=== PATIENT | female | born 1955 | race Caucasian/White ===

== ENCOUNTER → 2020-02-17 13:55 | Outpatient (BNVA) | payer OTHER, MEDICAID, SELFPAY | PROVIDERS: PCP Internal Medicine; Referring Provider Internal Medicine; Visit Provider Internal Medicine Cardiovascular Disease | DX: Z76.89 Persons encountering health services in other specified circumstances (principal) ==

== ENCOUNTER → 2020-04-18 13:57 | Outpatient (BNVA) | payer OTHER, MEDICAID, SELFPAY | PROVIDERS: PCP Internal Medicine; Visit Provider Hospitalist | DX: Z76.89 Persons encountering health services in other specified circumstances (principal) ==

== ENCOUNTER → 2020-07-24 13:27 | Outpatient (BNVA) | payer OTHER, MEDICAID, SELFPAY | PROVIDERS: PCP Internal Medicine; Visit Provider Hospitalist ==

== ENCOUNTER 2020-07-28 10:21 | Outpatient (REF) | payer OTHER, MEDICAID, SELFPAY ==
[2020-07-28 11:18] LABS: MANUAL DIFF FLAG NO
[2020-07-28 11:30] LABS: Basophils Absolute Auto 0.1 X10*3/uL (0.0-0.2); Basophils Percent Auto 0.9 % (0-2); Eosinophils Absolute Auto 0.3 X10*3/uL (0.0-0.4); Eosinophils Percent Auto 3.9 % (0-4); Hematocrit 43.3 % (37-47); Hemoglobin 14.5 g/dl (12.0-16.0); Imm Gran Abs Auto 0.04 X10*3/uL (0.00-0.03); Imm Gran Pct Auto 0.5 % (0.0-0.4); Lymphocytes Absolute Auto 0.9 X10*3/uL (1.2-4.9); Lymphocytes Percent Auto 11.9 % (20-40); Mean Corpuscular HGB Conc 33.5 g/dl (31.0-35.0); Mean Corpuscular Hemoglobin 26.7 pg (27.0-33.0); Mean Corpuscular Volume 79.7 fL (80-98); Mean Platelet Volume 8.9 fL (9.4-12.3); Monocytes Absolute Auto 0.7 X10*3/uL (0.1-1.2); Monocytes Percent Auto 8.7 % (2-11); Neutrophils Absolute Auto 5.7 X10*3/uL (2.0-8.3); Neutrophils Percent Auto 74.1 % (45-73); Platelet Count 358 X10*3/uL (160-400); Red Blood Count 5.43 X10*6/uL (4.20-5.50); Red Cell Distribution Width 16.5 % (11.0-16.0); White Blood Count 7.7 X10*3/uL (4.8-10.8)
[2020-07-28 11:41] LABS: Anion Gap 18 (12-20); Blood Urea Nitrogen 27 mg/dL (9-16); Calcium 9.3 mg/dL (8.4-10.2); Carbon Dioxide 23 mmol/L (22-29); Chloride 104 mmol/L (96-108); Estimated Glomerular Filt Rate 38; Glucose Random 95 mg/dL (60-115); Potassium 2.9 mmol/L (3.3-5.1); Sodium 142 mmol/L (135-145)
[2020-07-28 11:44] LABS: B Type Natriuretic Peptide 71 pg/mL (<100)
[2020-07-28 12:08] LABS: Erythrocyte Sedimentation Rate 16 MM/HR (0-20)
== END 2020-07-28 10:22 | disposition home or self-care (01) ==
LOC: HO.HMGCLDS 10:21
PROVIDERS: PCP Internal Medicine; Visit Provider Hospitalist
DX: I27.20 Pulmonary hypertension, unspecified (principal); J44.9 Chronic obstructive pulmonary disease, unspecified
CPT/HCPCS: 36415; 80048; 83880; 85025; 85652

== ENCOUNTER 2020-08-02 15:26 | Outpatient (REF) | payer OTHER, MEDICAID, SELFPAY ==
[2020-08-02 16:53] LABS: Anion Gap 18 (12-20); Blood Urea Nitrogen 23 mg/dL (9-16); Calcium 9.8 mg/dL (8.4-10.2); Carbon Dioxide 24 mmol/L (22-29); Chloride 104 mmol/L (96-108); Estimated Glomerular Filt Rate 41; Glucose Random 75 mg/dL (60-115); Potassium 2.8 mmol/L (3.3-5.1); Sodium 143 mmol/L (135-145)
== END 2020-08-02 15:27 | disposition home or self-care (01) ==
LOC: HO.LAB 15:26
PROVIDERS: Visit Provider Hospitalist
DX: I50.812 Chronic right heart failure (principal)
CPT/HCPCS: 36415; 80048

== ENCOUNTER → 2020-09-20 09:41 | Outpatient (REF) | payer OTHER, MEDICAID, SELFPAY ==
--- NOTE | 2020-09-20 09:44 | CA_ITS ---
Transthoracic Echocardiogram Patient (Last, First, Middle): Sabina Jain A Gender: Female Date of : 1955 Age: 65 Procedure Date: 09/20/2020 Procedure Type: Transthoracic Echocardiogram Location: OP Height: 165.1 cm Weight: 77.11 kg BSA: 1.85 m2 Heart Rate: bpm BP: 124 / 80 mmHg Cancer Genetic Counselor: Referring MD: Bhavesh Adames MD Ux Visual Designer: Bhavesh Adames MD Symptoms: I27.20 - Pulmonary hypertension, unspecified Study Quality: Fair ECG Rhythm: Sinus Conclusions: - 1. Normal LV systolic function with impaired relaxation filling pattern 2. Enlarged RV with reduced RV systolic function 3. Moderate tricuspid regurgitation with severely elevated right ventricular systolic pressure 4. No gross pericardial effusion Findings Left Ventricle Normal left ventricular size, thickness, and systolic function. The visually estimated ejection fraction is between 55-60%. There is a flattened septum in systole consistent with right ventricular pressure overload. Spectral Doppler is indicative of an impaired relaxation filling pattern. E/E prime ratio is between 8 and 15 consistent with indeterminate filling pressures. Right Ventricle Mildly increased right ventricular cavity size. There is mildly decreased right ventricular systolic function. Atria The left atrium is normal in size. There is no evidence of interatrial shunt. The right atrium is mildly dilated. Aortic Valve Normal aortic valve structure and function. There is no aortic valve stenosis. There is no aortic valve regurgitation. Mitral Valve Normal mitral valve structure and function. There is trace mitral valve regurgitation. There is no mitral valve stenosis. Pulmonic Valve The pulmonic valve is likely normal. There is trace to mild pulmonic valve regurgitation. Tricuspid Valve Normal tricuspid valve structure. There is moderate tricuspid valve regurgitation. The right ventricular systolic pressure is 71 mmHg. Normal right atrial pressure. Severe pulmonary hypertension is present. Great Vessels All visible segments of the aorta are normal in size. The pulmonary artery was not well visualized. Venous The inferior vena cava is normal in size and collapses greater than 50% with inspiration. Pericardium/Pleural There is no evidence of pericardial effusion. Measurements 2D Linear Measurements IVSd: 0.85 0.6-0.9/0.6-1.0 cm LVIDd: 4.10 3.9-5.3/4.2-5.9 cm LVIDd Index: 2.22 2.4-3.2/2.2-3.1 cm/m2 LVIDs: 2.73 2.0-3.6 cm LVPWd: 0.85 0.7-1.1 cm Ao Root: 2.70 2.1-3.5 cm LA Diam: 3.20 2.7-3.8/3.0-4.0 cm LAIDs Index: 1.73 1.5-2.3 cm/m2 LV Mass: 130.92 67-162/88-224 g LV Mass Index: 70.77 43-95/49-115 g/m2 LVOT Diam: 2.10 3.0+(-)1.3 cm Mitral Valve MV Pk E: 0.70 MV PK A: 1.03 MV Decel Time: 135.00 E/A: 0.70 E'Lateral: 6.31 E'Medial: 4.35 E/E' Med: 16.20 E/E' Lat: 11.10 PHT: 39.00 MVA PHT: 5.64 Decel Glascock: 5.22 Aortic Valve AoV Pk Elgin: 1.63 AoV Mn [place]gin: 1.01 AoV VTI: 0.28 AoV Pk Grad: 11.00 Aov Mn Grad: 5.00 PETER Cont.VTI: 2.81 LVOT LVOT Pk [place]: 1.06 LVOT Mn [place]: 0.61 LVOT VTI: 0.23 LVOT Pk Grad: 4.00 LVOT Mn Grad: 2.00 LVOT Diam: 2.10 LVOT Area: 3.46 Diastolic Function MV Pk E: 0.70 MV Pk A: 1.03 E/A: 0.70 E'Medial: 4.35 E/E' Med: 16.20 E' Laterial: 6.31 E/E' Lat: 11.10 Tricuspid Valve TR Pk El[place]: 4.03 TR Pk Grad: 68.00 RA Press: 3.00 RVSP: 71.00 Great Vessels Aorta Ao Root-2D: 2.70 2.0-3.7 cm Ao Asc: 2.80 2.1-3.4 cm Ao Arch: 3.20 Pulmonary Valve PV Pk Elgin: 1.09 Peak PV Grad: 5.00 Updated in Other Vendor System with Status of Final Bhavesh Adames MD electronically signed on 09/20/2020 3:31:20 PM with status of Final
== END ==
LOC: HO.CARD 09:41
PROVIDERS: Visit Provider Internal Medicine Cardiovascular Disease
DX: I27.0 Primary pulmonary hypertension (principal); I47.1 Supraventricular tachycardia; I50.810 Right heart failure, unspecified
CPT/HCPCS: 93306

== ENCOUNTER 2020-09-25 13:31 | Outpatient (REF) | payer OTHER, MEDICAID, SELFPAY ==
[2020-09-25 18:28] LABS: Anion Gap 18 (12-20); Blood Urea Nitrogen 25 mg/dL (9-16); Calcium 9.5 mg/dL (8.4-10.2); Carbon Dioxide 23 mmol/L (22-29); Chloride 103 mmol/L (96-108); Estimated Glomerular Filt Rate 42; Potassium 3.1 mmol/L (3.3-5.1); Sodium 141 mmol/L (135-145)
[2020-09-25 19:03] LABS: Digoxin 0.3 ng/mL (0.8-2.0)
== END 2020-09-25 13:32 | disposition home or self-care (01) ==
LOC: HO.LAB 13:31
PROVIDERS: PCP Internal Medicine; Referring Provider Internal Medicine Hypertension Specialist; Visit Provider Internal Medicine Cardiovascular Disease
DX: I47.1 Supraventricular tachycardia (principal); I48.20 Chronic atrial fibrillation, unspecified; N18.30 Chronic kidney disease, stage 3 unspecified; Z79.899 Other long term (current) drug therapy
CPT/HCPCS: 36415; 80051; 80162; 82310; 82565; 84520

== ENCOUNTER 2020-10-07 11:38 | Outpatient (REF) | payer OTHER, MEDICAID, SELFPAY ==
--- NOTE | ~2020-10-07 | XR_ITS ---
EXAMINATION: XR HAND, RIGHT CLINICAL INFORMATION: Pain. COMPARISON: None TECHNIQUE: PA, lateral, and oblique views of the right hand. FINDINGS: There is a loss of PIP and DIP joint space all digits. There is periarticular spurring joint ligament is irregularity DIP joint third digit. No visible acute fracture or dislocation seen. The MCP, CMCP joints appear normal. The soft tissues are normal. XR/XR hand RT min 3V IMPRESSION: Degenerative osteoarthritic changes PIP and DIP joints slightly worse in the DIP joint third digit. No visible acute fracture seen
== END 2020-10-07 11:39 | disposition home or self-care (01) ==
LOC: HO.HMGCX 11:38
PROVIDERS: PCP Internal Medicine; Visit Provider Internal Medicine
DX: M19.90 Unspecified osteoarthritis, unspecified site (principal)
CPT/HCPCS: 73130

== ENCOUNTER 2020-11-21 08:48 | Outpatient (REF) | payer OTHER, MEDICAID, SELFPAY ==
--- NOTE | ~2020-11-21 | CT_ITS ---
EXAMINATION: CT CHEST WITHOUT CONTRAST CLINICAL INFORMATION: Non-small cell lung cancer. COMPARISON: Portions of a previous CT 12/16/19. TECHNIQUE: Multidetector volumetric CT imaging of the chest was done. Axial MIP volume rendering provided. Sagittal and coronal reformatted images were obtained. This CT examination was performed using dose optimization techniques as appropriate, variously including the following: *Automated exposure control *Adjustment of mA and/or kV according to patient size (this includes techniques or standardized protocols for targeted exams where dose is matched to indication/reason for exam; i.e. extremities or head) *Use of iterative reconstruction technique DLP: 146 mGy-cm FINDINGS: TELEVISION INSTALLER: There is volume loss in the left hemithorax with irregular density extending from the left hilum toward the periphery of the left mid chest wall. There are multiple rib deformities. There is asymmetric left apical thickening. LUNGS: There is no abnormality of the trachea or mainstem bronchi. There is volume loss in the left lung. There is severe centrilobular emphysema. There is abnormal density extending from the left hilum to the pleural reflection laterally and inferiorly. There is metallic suture in the anterior lower remaining left lung. There is irregular pleural thickening. There is a juxtapleural mass-like abnormality posteromedial right lower lobe. This appears somewhat more solid. Measurements of the solid component as follows; 11/21/2020-1.4 x 1.4 cm 12/16/2019- 1.1 x 0.7 cm 04/28/2019-0.9 x 0.8 cm 05/20/2018-0.7 x 0.5 cm There is some traction bronchiectasis. MEDIASTINUM: There is mediastinal shift to the left. There is a lymph node in the anterior mediastinal fat 11/21/2020-0.8 cm 12/16/2019-0.8 cm 05/20/2018-0.8 cm No significant pericardial fluid. No definite abnormality of the esophagus. The left hilum is not well evaluated. PLEURA: There is pleural reaction and thickening. There is asymmetric left apical thickening. No significant pleural fluid. AXILLA: There are no enlarged axillary lymph nodes. There are extensive chest wall abnormalities on the left consistent with previous thoracotomy. There are calcifications in the subcutaneous tissues of the chest wall. UPPER ABDOMEN: Circumscribed fluid attenuating mass in the medial upper right kidney consistent with a cyst. This has increased in size when compared to 05/20/2018. This should be monitored at the time of next follow-up. There is cholelithiasis. No suspicious adrenal mass demonstrated. OSSEOUS STRUCTURES: Left chest wall deformities consistent with previous surgery. CT/CT chest wo con IMPRESSION: Severe underlying emphysema. Postoperative changes from left thoracotomy and pulmonary resection. Increasing solid component of a nodule in the right lower lobe posteriorly. This is concerning for new or metastatic malignancy. This may be amenable to CT-guided sampling.
== END 2020-11-21 08:49 | disposition home or self-care (01) ==
LOC: HO.CT 08:48
PROVIDERS: Visit Provider Internal Medicine Medical Oncology
DX: Z85.118 Personal history of other malignant neoplasm of bronchus and lung (principal)
CPT/HCPCS: 71250

== ENCOUNTER → 2020-12-26 13:00 | Outpatient (BNVA) | payer OTHER, MEDICAID, SELFPAY | PROVIDERS: PCP Internal Medicine; Visit Provider Hospitalist | DX: I27.20 Pulmonary hypertension, unspecified (principal); J44.9 Chronic obstructive pulmonary disease, unspecified ==

== ENCOUNTER 2021-01-02 11:02 | Day surgery (SDC) | payer OTHER, MEDICAID, SELFPAY ==
[2021-01-02] VITALS (8 sets, daily range): BP systolic 98–120; BP diastolic 58–83; PULSE 77–90; RESP 17; TEMP 36.1; O2SAT 97–99; BMI 27.1
--- NOTE | ~2021-01-02 | XR_ITS ---
EXAMINATION: XR CHEST CLINICAL INFORMATION: Post right lower lobe lung biopsy. COMPARISON: None TECHNIQUE: 2 views of the chest were obtained. FINDINGS: The right lung is expanded. There is moderate loss of left lung volume with postsurgical changes in left parahilar region.. There is left upper lobe dense scarring and/or atelectasis. Post biopsy there is no visible pneumothorax in the right lung or the left lung. Heart size and pulmonary vascularity is normal. No gross bony abnormality seen. XR/XR chest 2V IMPRESSION: Post right lower lobe lung biopsy there is no pneumothorax. There is chronic bandlike atelectasis scarring left upper lobe with loss of left lung volume and postsurgical changes in the left parahilar region.
--- NOTE | ~2021-01-02 | CT_ITS ---
PROCEDURE: CT GUIDED ASPIRATION, FINE NEEDLE, WITH IMAGE GUIDANCE CLINICAL INFORMATION: Lung mass. COMPARISON: None TECHNIQUE: Following explaining CT-guided right lung nodule biopsy procedure, benefits and risks written consent was obtained. Patient was placed in right lateral decubitus view and preliminary CT imaging was obtained. An optimal site was selected along the right posterior chest and marked. The marked site was cleaned and draped in usual sterile manner. 1% lidocaine was injected at puncture site. A 25-gauge long needle attached to a syringe was inserted under CT fluoroscopy guidance into the right lower lobe nodule and a 3 pass fine-needle biopsy aspiration was performed. Postprocedure repeat CT chest revealed no visible pneumothorax. Patient tolerated procedure extremely well. This CT examination was performed using dose optimization techniques as appropriate, variously including the following: *Automated exposure control *Adjustment of mA and/or kV according to patient size (this includes techniques or standardized protocols for targeted exams where dose is matched to indication/reason for exam; i.e. extremities or head) *Use of iterative reconstruction technique DLP: 353 mGy-cm FINDINGS: On preliminary CT imaging there is a 1.1 cm nodule subpleural location right lower lobe. There is underlying emphysema. CT fluoroscopy-guided right lower lobe pulmonary nodule aspiration biopsy was performed x3. Repeat CT imaging was performed post procedure and revealed no visible pneumothorax. A chest x-ray was to be obtained as well. Preliminary cytology results revealed adequate specimen. CT/CT guided FNA IMPRESSION: Successful CT fluoroscopy-guided right lower lobe nodule biopsy performed. No immediate complications.
[2021-01-02 11:34] LABS: MANUAL DIFF FLAG NO
[2021-01-02 11:39] LABS: Basophils Absolute Auto 0.1 X10*3/uL (0.0-0.2); Eosinophils Absolute Auto 0.2 X10*3/uL (0.0-0.4); Eosinophils Percent Auto 2.6 % (0-4); Hematocrit 44.5 % (37-47); Hemoglobin 15.3 g/dl (12.0-16.0); Imm Gran Abs Auto 0.02 X10*3/uL (0.00-0.03); Imm Gran Pct Auto 0.3 % (0.0-0.4); Lymphocytes Percent Auto 12.9 % (20-40); Mean Corpuscular HGB Conc 34.4 g/dl (31.0-35.0); Mean Corpuscular Hemoglobin 27.1 pg (27.0-33.0); Mean Corpuscular Volume 78.8 fL (80-98); Mean Platelet Volume 8.9 fL (9.4-12.3); Monocytes Absolute Auto 0.6 X10*3/uL (0.1-1.2); Monocytes Percent Auto 7.9 % (2-11); Neutrophils Percent Auto 75.3 % (45-73); Platelet Count 263 X10*3/uL (160-400); Red Blood Count 5.65 X10*6/uL (4.20-5.50); Red Cell Distribution Width 16.9 % (11.0-16.0)
[2021-01-02 11:49] LABS: Prothrombin Time 11.5 SEC (9.9-13.0)
[2021-01-02 11:51] LABS: Partial Thromboplastin Time 47.4 SEC (24.1-38.0)
[2021-01-02 12:06] LABS: Anion Gap 16 (12-20); Blood Urea Nitrogen 30 mg/dL (9-16); Carbon Dioxide 23 mmol/L (22-29); Chloride 106 mmol/L (96-108); Creatinine Clr Calc Pharmacy 39.2; Estimated Glomerular Filt Rate 36; Potassium 2.8 mmol/L (3.3-5.1); Sodium 142 mmol/L (135-145)
== END 2021-01-02 15:54 | disposition home or self-care (01) ==
PROVIDERS: Radiology Diagnostic Radiology; PCP Internal Medicine; Visit Provider Internal Medicine
DX: C34.31 Malignant neoplasm of lower lobe, right bronchus or lung (principal); J96.11 Chronic respiratory failure with hypoxia; J44.9 Chronic obstructive pulmonary disease, unspecified; I27.20 Pulmonary hypertension, unspecified; Z79.899 Other long term (current) drug therapy
CPT/HCPCS: 10009; 36415; 71046; 80051; 82565; 84520; 85025; 85610; 85730; 88172; 88173

== ENCOUNTER 2021-01-10 12:56 | Outpatient (REF) | payer OTHER, MEDICAID, SELFPAY ==
--- NOTE | 2021-01-10 13:00 | PFT_ITS ---
FLOWS: FEV1 57% of predicted at 1.46 L. FVC 74% of predicted at 2.47 L. FEV1 to FVC ratio of 0.59. No bronchodilator response. LUNG VOLUMES: Total lung capacity 99% of predicted at 5.16 L. Residual volume 136% predicted at 2.91 L. Slow vital capacity 73% predicted at 2.25 L. Expiratory reserve volume 100% of predicted at 0.83 L. Diffusion capacity is severely decreased. IMPRESSION: Moderate obstructive ventilatory defect with no bronchodilator response. Increased residual volume suggests air trapping. Decreased diffusion capacity suggests emphysema. Boris Harris MD AP/MODL / [id number]
== END 2021-01-10 12:57 | disposition home or self-care (01) ==
LOC: HO.RESP 12:56
PROVIDERS: PCP Internal Medicine; Visit Provider Hospitalist
DX: J44.9 Chronic obstructive pulmonary disease, unspecified (principal)
CPT/HCPCS: 94060; 94727; 94729

== ENCOUNTER 2021-01-16 08:13 | Outpatient (REF) | payer OTHER, MEDICAID, SELFPAY ==
--- NOTE | ~2021-01-16 | PE_ITS ---
EXAMINATION: Fluorine-18 FDG PET/CT Scan CLINICAL INDICATION: Subsequent treatment management. Recurrent right lower lobe non-small cell lung cancer, staging. Right lung biopsy 2 weeks ago. PROCEDURE: 68 minutes following the intravenous administration of 15.1 mCi of fluorine 18 FDG, images from the base of the skull to the mid thighs were obtained using a combined PET/CT scanner with CT scan based attenuation correction. No oral contrast was administered. No intravenous contrast was administered. Transverse, coronal, sagittal, and volume reconstruction projections were obtained. The patient's blood glucose as determined by a finger stick, was 93 mg/dl immediately prior to injection. Total CT exam dose-length product 387.33 mGy-cm * These CT images were obtained using dose optimization techniques as appropriate, variously including the following: Automated exposure control * Adjustment of mA and/or kV according to patient size (this includes techniques or standardized protocols for targeted exams where dose is matched to indication/reason for exam; i.e. extremities or head) * Use of iterative reconstruction technique COMPARISON: Multiple prior PET/CT scans are available for comparison. The most recent available PET CT scan is dated 01/28/2019 and the least recent is dated 11/28/2010. Multiple less recent PET CT scans prior to 11/28/2010 abdomen performed and the reports of these are available but the images of the less recent studies are not available for review. CT scan of the chest dated 11/21/2020 is available for comparison. FINDINGS: (Slice numbers described in this report are numbered superiorly to inferiorly with slice #1 in the head) NECK AND VISUALIZED HEAD: No foci of abnormal FDG activity are noted. The distribution of FDG activity is physiological. There is no cervical lymphadenopathy.. THORAX: There is weakly increased FDG activity in a posterior pleural-based right lower lobe pulmonary nodule, showing SUVmax 2.2, slice 91/267. The solid nodule at this site measures 1.3 x 1.0 cm in largest transverse dimensions and does not appear significantly changed from the 11/21/[address] scan. The patient has volume loss in the left lung from a partial left upper lobectomy. There is scarring or atelectasis abutting the interlobar fissure of the left lung at the base of the left upper lobe with a CT appearance similar to the recent diagnostic CT scan dated 11/21/2020 and the most recent PET CT scan dated 01/28/2019. This shows mildly increased FDG activity with SUVmax 4.2, slice 75/267. There is also some scarring with associated weak FDG activity at the left lung apex. No additional suspicious pulmonary nodules are present. There is pleural thickening and chest wall deformity in the left lower lobe consistent with prior lung surgery. There is no pleural or pericardial fluid, or pneumothorax. There is no mediastinal, supraclavicular, or axillary lymphadenopathy. Mildly increased FDG activity is present in the thyroid and this abuts likely physiological activity in the larynx which is predominantly right-sided. ABDOMEN AND PELVIS: There is a focus of moderately increased FDG activity in the rectosigmoid colon, SUVmax 8.5, slice 201/267. This was not present on the prior 01/28/2019 PET/CT scan. This focus is superimposed on mild diffuse FDG activity present throughout the gastrointestinal tract which is likely physiological. No additional foci of abnormal FDG activity are present in the abdomen or pelvis. The liver and spleen are unremarkable. There is a peripherally calcified calculus within the gallbladder but the latter is otherwise unremarkable. There is a hypodense cyst in the upper pole of the right kidney now measuring 3.1 cm in largest transverse dimension and this is significantly larger than on 01/28/2019. This is markedly FDG photopenic. The kidneys are otherwise unremarkable. The adrenal glands and pancreas are unremarkable. There is no retroperitoneal, mesenteric, pelvic or inguinal lymphadenopathy. MUSCULOSKELETAL: No foci of abnormal FDG activity are present in the osseous structures. There are diffuse degenerative changes in the spine but no suspicious sclerotic or lytic lesions are visualized. There are bilateral subcutaneous calcifications in the superior posterior thigh regions, unchanged from prior studies and with no associated abnormal FDG activity. A right total hip prosthesis is in place, unchanged from prior studies. VASCULAR: Vascular calcifications including coronary are noted. PET/PET CT fusion skull to thigh IMPRESSION: 1. Although mild in intensity, increased FDG activity associated with the posterior pleural-based right lower lobe pulmonary nodule is strongly suspicious for malignancy. Correlation with recent biopsy results is recommended. 2. Mild FDG activity associated with scarring and atelectasis in the left upper lobe most likely represents posttreatment changes. The absence of a discrete focus of more prominently increased FDG activity suggests this is not malignant in etiology. 3. A newly FDG avid focus in the rectosigmoid colon is suspicious for malignancy. While this may be physiological, it is a significant change from the 01/28/2019 PET/CT scan. Correlation with colonoscopy is recommended. 4. No additional abnormalities suspicious for other metastatic or malignant lesions are noted. 5. Cholelithiasis. 6. Vascular calcifications including coronary.
== END 2021-01-16 08:14 | disposition home or self-care (01) ==
LOC: HO.PET 08:13
PROVIDERS: PCP Internal Medicine; Visit Provider Internal Medicine
DX: Z13.89 Encounter for screening for other disorder (principal)

== ENCOUNTER → 2021-02-01 07:52 | Outpatient (BNVA) | payer OTHER, MEDICAID, SELFPAY | PROVIDERS: PCP Internal Medicine; Visit Provider Nurse Practitioner Family ==

== ENCOUNTER 2021-02-13 09:57 | Day surgery (SDC) | payer OTHER, MEDICAID, SELFPAY ==
[2021-02-07 11:40] VITALS: BMI 26.4
[2021-02-13 10:25] VITALS: BMI 26.2
[2021-02-13 10:42] VITALS: BP 119/71; PULSE 93; RESP 18; TEMP 35.7; O2SAT 93
--- NOTE | 2021-02-13 11:50 | MHC.SHP ---
Pre-Procedural Eval Section A Date of Service: 02/13/21 The patient is an INPATIENT: No Changes since office visit: No Cold of Flu in the past 2 weeks, No New Medical Problems, No Changes in Medication and No Patient answered all questions The History & Physical has been completed within 30 days and I have reviewed it.: Yes Section B Chief Complaint: Abnormal Results of function stuides Allergies: Allergies Allergy/AdvReac Type Severity Reaction Status Date / Time cephalexin Allergy Severe rash Verified 02/12/21 00:49 Beta-Blockers AdvReac Intermediate SHORTNESS Verified 02/12/21 00:49 (Beta-Adrenergic Bloc OF BREATH Plan I have reviewed the history and physical and performed a pertinent physical examination on my patient. No changes have occurred unless specified.
[2021-02-13 12:39] VITALS: BP 128/70; PULSE 84; RESP 16; TEMP 36.2; O2SAT 98
--- NOTE | 2021-02-13 12:39 | P.BOP_ITS ---
Brief Operative Note Date of Service: 02/13/21 Pre-op diagnosis: abnl pet scan Post-op diagnosis: same Surgeon: Andrey Alejo Anesthesia: MAC Was an Substation Maintenance Technician used for this Procedure?: No Estimated blood loss (mL): 0 Pathology: none sent Condition: stable Disposition: PACU
--- NOTE | 2021-02-13 13:11 | OP_ITS ---
SURGEON: Andrey Alejo MD INDICATIONS: Abnormal PET scan of the colon. PREOPERATIVE DIAGNOSIS: POSTOPERATIVE DIAGNOSIS: PROCEDURE PERFORMED: Flexible sigmoidoscopy to 40 cm. ESTIMATED BLOOD LOSS: COMPLICATIONS: ANESTHESIA: ASSISTANTS: SPECIMENS: MEDICATIONS: None. DESCRIPTION OF PROCEDURE: History and physical performed. The risks and benefits of the procedure were explained to the patient. Informed consent was obtained. The patient was placed in the left lateral decubitus position. A digital rectal exam was performed and was found to be normal. The Olympus pediatric video colonoscope was introduced into the rectum and advanced to 40 cm, at which point, examination was performed and the scope was removed. She tolerated the procedure well and was taken to recovery area in stable condition. FINDINGS: The visualized colonic mucosa was normal. The colon was somewhat tortuous. There was moderate diverticulosis. No mass lesion was identified. There was some stool, which limited the sensitivity examination for detection of small polyps. This was washed and suctioned. Retroflexed examination showed small internal hemorrhoids. IMPRESSION: Negative sigmoidoscopy. RECOMMENDATIONS: 1. Follow up as needed. 2. Colon cancer screening is recommended every 10 years for average risk individuals. MD LEONARD Lance/MICHAEL / [phone]
== END 2021-02-13 13:17 | disposition home or self-care (01) ==
PROVIDERS: PCP Internal Medicine; Visit Provider Internal Medicine Gastroenterology
PROC: 0DJD8ZZ Inspection of Lower Intestinal Tract, Via Natural or Artificial Opening Endoscopic (ICD-10-PCS; CPT 45330; principal; 2021-02-13 11:00)
DX: R94.8 Abnormal results of function studies of other organs and systems (principal); K57.30 Diverticulosis of large intestine without perforation or abscess without bleeding; K64.8 Other hemorrhoids; Z85.118 Personal history of other malignant neoplasm of bronchus and lung; I27.20 Pulmonary hypertension, unspecified; J44.9 Chronic obstructive pulmonary disease, unspecified; Z99.81 Dependence on supplemental oxygen; Z90.2 Acquired absence of lung [part of]; I12.9 Hypertensive chronic kidney disease with stage 1 through stage 4 chronic kidney disease, or unspecified chronic kidney disease; N18.9 Chronic kidney disease, unspecified; Z87.891 Personal history of nicotine dependence; G47.33 Obstructive sleep apnea (adult) (pediatric)
CPT/HCPCS: 45330

== ENCOUNTER 2021-02-16 14:33 | Outpatient (REF) | payer OTHER, MEDICAID, SELFPAY ==
--- NOTE | ~2021-02-16 | CT_ITS ---
EXAMINATION: CT HEAD WITHOUT CONTRAST CLINICAL INFORMATION: Staging for recurrent non-small cell lung cancer. COMPARISON: PET/CT 01/16/2021. TECHNIQUE: Contiguous axial imaging was performed from the skull base to vertex without intravenous administration of contrast. This CT examination was performed using dose optimization techniques as appropriate, variously including the following: *Automated exposure control *Adjustment of mA and/or kV according to patient size (this includes techniques or standardized protocols for targeted exams where dose is matched to indication/reason for exam; i.e. extremities or head) *Use of iterative reconstruction technique DLP: 732 mGy-cm FINDINGS: No intracranial hemorrhage, tumors or infarcts are noted. Mild diffuse commensurate prominence of ventricles and sulci is visualized. No focal parenchymal lesions the brain or abnormal extra-axial fluid collections identified. The orbits and globes are normal in appearance. No suspicious osseous lesions are visualized. Visualized paranasal sinuses, mastoid air cells and middle ear cavities are clear. CT/CT head/brain wo con IMPRESSION: Normal unenhanced CT the head. As clinically indicated, consider CT the head with IV contrast or unenhanced and IV contrast enhanced MRI of the brain as more sensitive examinations for detection of possible metastatic disease. Unenhanced CT the head may be insensitive in the detection of small intracranial metastatic lesions (approximately less than 1 cm).
== END 2021-02-16 14:34 | disposition home or self-care (01) ==
LOC: HO.CT 14:33
PROVIDERS: PCP Internal Medicine; Visit Provider Internal Medicine Medical Oncology
DX: C34.90 Malignant neoplasm of unspecified part of unspecified bronchus or lung (principal)
CPT/HCPCS: 70450

== ENCOUNTER → 2021-03-26 12:58 | Outpatient (BNVA) | payer OTHER, MEDICAID, SELFPAY | PROVIDERS: PCP Internal Medicine; Visit Provider Hospitalist | DX: G47.33 Obstructive sleep apnea (adult) (pediatric) (principal); I27.20 Pulmonary hypertension, unspecified; J44.9 Chronic obstructive pulmonary disease, unspecified; I50.812 Chronic right heart failure; J96.11 Chronic respiratory failure with hypoxia; R91.1 Solitary pulmonary nodule; C34.90 Malignant neoplasm of unspecified part of unspecified bronchus or lung | CPT/HCPCS: 90471; 90686 ==

== ENCOUNTER → 2021-05-01 12:53 | Outpatient (BNVA) | payer OTHER, MEDICAID, SELFPAY | PROVIDERS: PCP Internal Medicine; Visit Provider Hospitalist | DX: I27.20 Pulmonary hypertension, unspecified (principal); J44.9 Chronic obstructive pulmonary disease, unspecified ==

== ENCOUNTER → 2021-05-04 10:37 | Outpatient (BNVA) | payer OTHER, MEDICAID, SELFPAY | PROVIDERS: PCP Internal Medicine; Referring Provider Internal Medicine; Visit Provider Internal Medicine Cardiovascular Disease ==

== ENCOUNTER 2021-06-01 08:38 | Outpatient (REF) | payer OTHER, MEDICAID, SELFPAY ==
--- NOTE | ~2021-06-01 | CT_ITS ---
EXAMINATION: CT CHEST WITH CONTRAST CLINICAL INFORMATION: Malignant neoplasm of bronchus. COMPARISON: CT PET 01/16/2021. TECHNIQUE: Multidetector volumetric CT imaging of the chest was obtained after the administration of 50 mL of Omnipaque 350 intravenous contrast without immediate adverse reactions. Axial MIP volume rendering provided. Sagittal and coronal reformatted images were obtained. This CT examination was performed using dose optimization techniques as appropriate, variously including the following: *Automated exposure control *Adjustment of mA and/or kV according to patient size (this includes techniques or standardized protocols for targeted exams where dose is matched to indication/reason for exam; i.e. extremities or head) *Use of iterative reconstruction technique DLP: 103 mGy-cm FINDINGS: SHIP'S OFFICER: Loss of left lung volume. LUNGS: There is centrilobular emphysema. There is loss of lingular and left lower lobe volume with postsurgical changes in the lingular segment. There is a well-defined 0.9 x 1.0 cm nodule right lower lobe posterior basal segment. Previously it measured 1.3 x 1.0 cm, it is unchanged in size. No additional pulmonary nodules, mass or consolidation seen. MEDIASTINUM: The thyroid lobes are symmetrical and normal. Central trachea and the bronchi are widely patent. There is 6 mm hypodense small nodule along the posterior segment of mid pole left lobe. Heart size and the great vessels are normal caliber. There are numerous precarinal lymph nodes. PLEURA: There is mild left posterior basilar pleural thickening and tiny effusion. Some of these could be postsurgical. AXILLA: No lymphadenopathy. UPPER ABDOMEN: Visualized liver, spleen, pancreas and bilateral adrenal glands unremarkable. There is a partially exophytic 2.5 cm cyst upper pole right kidney. OSSEOUS STRUCTURES: Bone windows reveal no lytic or sclerotic process. CT/CT chest w con IMPRESSION: Postsurgical changes left lower lobe and lingula. No recurrent mass or nodule seen. There is a right lower lobe subpleural-based nodule measuring 1.0 cm. It measured approximately 1.3 cm on the PET/CT exam and mildly hypermetabolic. No additional pulmonary nodule seen on present exam. There is diffuse centrilobular emphysema. No abnormal mediastinal or axillary lymphadenopathy seen. Mild deformity of left lower lateral chest wall from previous intervention. Fleischner guidelines were followed.
[2021-06-01] MEDS: iohexoL 350 MG/ML 100 ML INFUS..BTL 65 ML IV (09:30)
== END 2021-06-01 08:39 | disposition home or self-care (01) ==
LOC: HO.CT 08:38
PROVIDERS: Visit Provider Internal Medicine Medical Oncology
DX: C34.90 Malignant neoplasm of unspecified part of unspecified bronchus or lung (principal)
CPT/HCPCS: 71260; Q9967

== ENCOUNTER → 2021-06-18 13:01 | Outpatient (BNVA) | payer MEDICARE, MEDICAID, SELFPAY | PROVIDERS: PCP Internal Medicine; Visit Provider Hospitalist | DX: I27.20 Pulmonary hypertension, unspecified (principal); G47.33 Obstructive sleep apnea (adult) (pediatric); J96.11 Chronic respiratory failure with hypoxia; J41.0 Simple chronic bronchitis; R91.1 Solitary pulmonary nodule | CPT/HCPCS: 94618; 99212 ==

== ENCOUNTER → 2021-08-13 13:23 | Outpatient (BNVA) | payer MEDICARE, MEDICAID, SELFPAY | PROVIDERS: PCP Internal Medicine; Visit Provider Hospitalist | DX: G47.33 Obstructive sleep apnea (adult) (pediatric) (principal); I27.20 Pulmonary hypertension, unspecified; J96.11 Chronic respiratory failure with hypoxia; J41.0 Simple chronic bronchitis; R91.1 Solitary pulmonary nodule; C34.90 Malignant neoplasm of unspecified part of unspecified bronchus or lung | CPT/HCPCS: 99212 ==

== ENCOUNTER 2021-08-21 13:33 | Outpatient (REF) | payer MEDICARE, MEDICAID, SELFPAY ==
--- NOTE | ~2021-08-21 | CT_ITS ---
EXAMINATION: CT CHEST WITH CONTRAST CLINICAL INFORMATION: Follow-up lung nodule. COMPARISON: None. TECHNIQUE: Multidetector volumetric CT imaging of the chest was obtained after the administration of 65 mL of Omnipaque 350 intravenous contrast without immediate adverse reactions. Axial MIP volume rendering provided. Sagittal and coronal reformatted images were obtained. This CT examination was performed using dose optimization techniques as appropriate, variously including the following: *Automated exposure control *Adjustment of mA and/or kV according to patient size (this includes techniques or standardized protocols for targeted exams where dose is matched to indication/reason for exam; i.e. extremities or head) *Use of iterative reconstruction technique DLP: 278 mGy-cm. FINDINGS: HYPO SPLASHER: Elevated left hemidiaphragm. The lungs are otherwise expanded. There is a thick band-like density left upper midlung region. LUNGS: There is centrilobular emphysema with postsurgical changes in lingula with loss of left lung volume. There is a punctate subpleural 1 mm nodule right upper lobe axial image 154/5, a 0.7 cm nodule adjacent to the right major fissure axial image 224/5, a stable 2 mm nodule right lower lobe posteromedial basal segment axial image 216/5, a 1 cm nodule pleural-based right lower lobe axial image 3025 with an adjacent 3 mm ground-glass nodule right lower lobe axial image 290/5, stable. Also visualized is a calcified 4 mm nodule right lower lobe axial image 318/5, stable. No new nodules seen. MEDIASTINUM: The entire mediastinum is shifted to the left. The heart size appears normal. No pericardial effusion seen. Central trachea and the major bronchi widely patent. There are small shotty lymph nodes measuring 1 cm in pretracheal space. Thyroid lobes are symmetrical and normal. PLEURA: There is left apical and lower lobe posterior pleural thickening. There are punctate calcifications in the left posterior pleura and sutures. AXILLA: There are small lymph nodes seen in the left axilla. UPPER ABDOMEN: Visualized liver is mildly attenuated. There is a moderate-sized radiopaque rim calcified gallstone measuring 1.6 cm. The adrenal glands unremarkable. There is hypodense cyst in the upper pole left kidney. OSSEOUS STRUCTURES: Mild deformity of left posterior ribs post intervention is noted.. CT/CT chest w con IMPRESSION: Postsurgical changes left lung with loss of left lung volume and ipsilateral mediastinal shift. A few scattered pulmonary nodules, largest in the right lower lobe, stable. Some of the nodules are calcified and likely granulomas. No new nodules visualized. Reactive pretracheal lymph nodes are the same size but minimal fullness in some of the nodes measuring 1 cm. They are suspicious. Fleischner guidelines were followed.
[2021-08-21] MEDS: iohexoL 350 MG/ML 100 ML INFUS..BTL IV (14:08)
== END 2021-08-21 13:34 | disposition home or self-care (01) ==
LOC: HO.CT 13:33
PROVIDERS: Visit Provider Internal Medicine Medical Oncology
DX: C34.90 Malignant neoplasm of unspecified part of unspecified bronchus or lung (principal); Z85.118 Personal history of other malignant neoplasm of bronchus and lung
CPT/HCPCS: 71260; Q9967

== ENCOUNTER 2021-11-20 07:34 | Outpatient (REF) | payer MEDICARE, MEDICAID, SELFPAY ==
[2021-11-20 08:22] LABS: MANUAL DIFF FLAG NO
[2021-11-20 08:31] LABS: Basophils Absolute Auto 0.1 X10*3/uL (0.0-0.2); Basophils Percent Auto 0.9 % (0-2); Eosinophils Absolute Auto 0.5 X10*3/uL (0.0-0.4); Eosinophils Percent Auto 7.8 % (0-4); Hematocrit 43.3 % (37.0-47.0); Hemoglobin 14.6 g/dl (12.0-16.0); Imm Gran Abs Auto 0.03 X10*3/uL (0.00-0.03); Imm Gran Pct Auto 0.5 % (0.0-0.4); Lymphocytes Absolute Auto 0.6 X10*3/uL (1.2-4.9); Lymphocytes Percent Auto 9.6 % (20-40); Mean Corpuscular HGB Conc 33.7 g/dl (31.0-35.0); Mean Corpuscular Hemoglobin 26.7 pg (27.0-33.0); Mean Corpuscular Volume 79.2 fL (80.0-98.0); Mean Platelet Volume 8.5 fL (9.4-12.3); Monocytes Absolute Auto 0.6 X10*3/uL (0.1-1.2); Monocytes Percent Auto 9.4 % (2-11); Neutrophils Absolute Auto 4.7 x10*3/uL (2.0-8.3); Neutrophils Percent Auto 71.8 % (45-73); Platelet Count 232 X10*3/uL (160-400); Red Blood Count 5.47 X10*6/uL (4.20-5.50); Red Cell Distribution Width 18.3 % (11.0-16.0); White Blood Count 6.6 X10*3/uL (4.8-10.8)
[2021-11-20 08:45] LABS: Alanine Aminotransferase 10 U/L (0-31); Albumin Level 4.1 g/dL (3.5-5.0); Alkaline Phosphatase 69 U/L (39-117); Anion Gap 16 (12-20); Aspartate Amino Transferase 15 U/L (5-31); Bilirubin Total 0.8 mg/dL (0.0-1.0); Blood Urea Nitrogen 35 mg/dL (9-16); Calcium 9.2 mg/dL (8.4-10.2); Carbon Dioxide 24 mmol/L (22-29); Chloride 104 mmol/L (96-108); Estimated Glomerular Filt Rate 33; Glucose Random 99 mg/dL (60-115); Sodium 141 mmol/L (135-145); Total Protein 7.1 g/dL (6.5-8.0)
== END 2021-11-20 07:35 | disposition home or self-care (01) ==
LOC: HO.MDS 07:34
PROVIDERS: Visit Provider Internal Medicine Medical Oncology
DX: C34.90 Malignant neoplasm of unspecified part of unspecified bronchus or lung (principal)
CPT/HCPCS: 36415; 80053; 85025; 96360; 96361

== ENCOUNTER 2021-11-20 10:03 | Outpatient (REF) | payer MEDICARE, MEDICAID, SELFPAY ==
--- NOTE | ~2021-11-20 | CT_ITS ---
EXAMINATION: CT CHEST WITH CONTRAST CLINICAL INFORMATION: Lung cancer COMPARISON: Previous chest CT most recent August 2021 TECHNIQUE: Multidetector volumetric CT imaging of the chest was obtained after the administration of 65 mL of Omnipaque 350 intravenous contrast without immediate adverse reactions. Axial MIP volume rendering provided. Sagittal and coronal reformatted images were obtained. This CT examination was performed using dose optimization techniques as appropriate, variously including the following: *Automated exposure control *Adjustment of mA and/or kV according to patient size (this includes techniques or standardized protocols for targeted exams where dose is matched to indication/reason for exam; i.e. extremities or head) *Use of iterative reconstruction technique DLP: 83 mGy-cm FINDINGS: LUNGS: There is evidence of emphysema. There are postsurgical changes to the left hemithorax with volume loss and shift of the central mediastinal structures to the left and elevation of the left hemidiaphragm. There are post surgical changes with multiple surgical staple seen in the left upper lobe. There is also surgical staple line seen along the left posterior lateral left lower lobe. There is a central left upper lobe cicatrization bronchiectasis and consolidation. This does not appear appreciably changed. There is evidence of emphysema. The 1 cm right lower lobe nodule axial image 129 series 5 does not appear appreciably changed. There are new more inferior heterogeneous or semisolid ill-defined. Bronchovascular nodules. These are difficult to separate from the adjacent vessels and measure. These areas measure approximately 8 mm axial image 142 series 5 and 7 mm axial image 143 series 5. No other new pulmonary nodule is seen. MEDIASTINUM: There are numerous prominent are upper normal size mediastinal lymph nodes. Largest lymph nodes are in the AP window, left precarinal and subcarinal regions. These do not appear appreciably changed. There are small bilateral hilar lymph nodes. No enlarged hilar lymph nodes are seen. The heart does not appear enlarged. There is a small pericardial effusion that appears unchanged. There is coronary artery and aortic valve calcification. There is a small stable left PLEURA: There is left apical pleural thickening or small amount of fluid. This does not appear appreciably changed. There is pleural thickening or small amount of fluid adjacent to the left lower lobe and left lower ribs. This is is not appreciably changed. There is no right pleural effusion. AXILLA: No lymphadenopathy. UPPER ABDOMEN: Bilateral renal cysts. OSSEOUS STRUCTURES: Extensive postsurgical changes to the left ribs. CT/CT chest w con IMPRESSION: Emphysema. Stable postsurgical changes to the left hemithorax. Stable central consolidation and sent cicatrization Brian the ectasis in the left upper lobe. Stable pleural thickening or small effusion at the left lung apex and adjacent to the surgical staple line in the posterior lateral left lower lobe. Stable 1 cm solid right lower lobe nodule that was biopsied December 2020. New more inferior heterogeneous or semisolid right lower lobe nodules. Infectious, inflammatory and neoplastic processes should be considered. Pulmonary nodules are otherwise stable. Stable prominent mediastinal lymph nodes. Fleischner guidelines were followed.
[2021-11-20] MEDS: iohexoL 350 MG/ML 75 ML INFUS..BTL 65 ML IV (10:41)
== END 2021-11-20 10:04 | disposition home or self-care (01) ==
LOC: HO.CT 10:03
PROVIDERS: Absent Provider Hospitalist; Visit Provider Internal Medicine Medical Oncology
DX: Z85.118 Personal history of other malignant neoplasm of bronchus and lung (principal)
CPT/HCPCS: 36415; 71260; 80053; 85025; 96360; 96361; Q9967

== ENCOUNTER → 2021-11-23 12:57 | Outpatient (BNVA) | payer MEDICARE, MEDICAID, SELFPAY | PROVIDERS: PCP Internal Medicine; Visit Provider Hospitalist | DX: C34.90 Malignant neoplasm of unspecified part of unspecified bronchus or lung (principal); J96.11 Chronic respiratory failure with hypoxia; I27.20 Pulmonary hypertension, unspecified; J44.9 Chronic obstructive pulmonary disease, unspecified; G47.33 Obstructive sleep apnea (adult) (pediatric); R91.1 Solitary pulmonary nodule | CPT/HCPCS: 99212 ==

== ENCOUNTER 2021-12-04 10:14 | Outpatient (REF) | payer MEDICARE, MEDICAID, SELFPAY ==
--- NOTE | ~2021-12-04 | PE_ITS ---
EXAMINATION: Fluorine-18 FDG PET/CT Scan CLINICAL INDICATION: Subsequent treatment management. Restaging lung cancer. PROCEDURE: 72 minutes following the intravenous administration of 12.2 mCi of fluorine 18 FDG, images from the base of the skull to the mid thighs were obtained using a combined PET/CT scanner with CT scan based attenuation correction. No oral contrast was administered. No intravenous contrast was administered. Transverse, coronal, sagittal, and volume reconstruction projections were obtained. The patient's blood glucose as determined by a finger stick, was 78 mg/dl immediately prior to injection. Total CT exam dose-length product 407.29 mGy-cm * These CT images were obtained using dose optimization techniques as appropriate, variously including the following: Automated exposure control * Adjustment of mA and/or kV according to patient size (this includes techniques or standardized protocols for targeted exams where dose is matched to indication/reason for exam; i.e. extremities or head) * Use of iterative reconstruction technique COMPARISON: Several previous PET/CT scans are available for comparison, the most recent dated 01/16/2021 and the least recent dated 11/28/2010. CT scan of the chest dated 11/20/2021 is also available for comparison. FINDINGS: (Slice numbers described in this report are numbered superiorly to inferiorly with slice #1 in the head) NECK AND VISUALIZED HEAD: No foci of abnormal FDG activity are noted. The distribution of FDG activity is physiological. There is no cervical lymphadenopathy. THORAX: Postsurgical changes in the left lung are noted, not significantly changed from the 11/20/[address] scan. Volume loss and mediastinal shift to the left are again noted, and medial consolidation within this shows weak FDG activity, SUVmax 2.3, slice 68/267. There are a cluster of nodular opacities present posteriorly in the left lower lobe number similar in appearance to 11/20/2021 and showing weak FDG activity showing SUVmax 2.0, slice 90/267. These all appear smaller and less dense when compared to the less recent 01/16/[address] scan. There are no additional foci of abnormally increased FDG activity in the chest. There is no mediastinal, supraclavicular, or axillary lymphadenopathy. There is no pleural or pericardial fluid, or pneumothorax. ABDOMEN AND PELVIS: No foci of abnormal FDG activity are present. There is mild diffuse FDG activity throughout the gastrointestinal tract without a suspicious focal component. A discrete focus of increased FDG activity in the rectosigmoid colon noted on the 01/16/[address] scan is no longer present. There is diverticulosis without evidence of diverticulitis. The hollow viscera are otherwise unremarkable. The liver and spleen are unremarkable. A peripherally calcified gallstone is present, unchanged from prior studies. The gallbladder is otherwise unremarkable. A stable hypodense cyst in the upper pole the right kidney is unchanged from 01/16/2021 and remains markedly FDG photopenic. The kidneys are otherwise unremarkable. The adrenal glands and pancreas are unremarkable. There is no retroperitoneal, mesenteric, pelvic or inguinal lymphadenopathy. The pelvic organs are unremarkable. MUSCULOSKELETAL: There are no foci of abnormal FDG activity in the osseous structures. Extensive left rib cage postsurgical changes are noted unchanged from prior studies and with no associated abnormal FDG activity. There are degenerative changes in the spine but no suspicious sclerotic or lytic lesions are visualized., A well-healed right total hip prosthesis is noted with no associated abnormal FDG activity. Multiple subcutaneous calcifications are present posteriorly in the upper thighs and buttocks bilaterally unchanged from prior studies. VASCULAR: Diffuse vascular calcifications including coronary are noted. PET/PET CT fusion skull to thigh IMPRESSION: 1. Nodular opacities in the right lower lobe appear similar or slightly less prominent than on the 01/16/[address] scan and show only weak FDG activity most suggestive of an inflammatory process. The appearance is not significantly changed from the recent 11/20/[address] scan. 2. Extensive postsurgical changes in the right lung and chest wall are noted with only weakly associated FDG activity likely due to some mild postoperative inflammatory changes. 3. There are no abnormalities suspicious for metastatic or recurrent malignancy. 4. Cholelithiasis. 5. Vascular calcifications including coronary.
== END 2021-12-04 10:15 | disposition home or self-care (01) ==
LOC: HO.PET 10:14
PROVIDERS: Visit Provider Hospitalist
DX: Z13.89 Encounter for screening for other disorder (principal)

== ENCOUNTER 2022-01-15 14:05 | Outpatient (REF) | payer MEDICARE, MEDICAID, SELFPAY | END 2022-01-15 14:06 | disposition home or self-care (01) | LOC: HO.LNP 14:05 | PROVIDERS: Visit Provider Hospitalist | DX: J96.11 Chronic respiratory failure with hypoxia (principal); J44.0 Chronic obstructive pulmonary disease with (acute) lower respiratory infection; R91.1 Solitary pulmonary nodule; C34.90 Malignant neoplasm of unspecified part of unspecified bronchus or lung; G73.3 Myasthenic syndromes in other diseases classified elsewhere; I27.20 Pulmonary hypertension, unspecified | CPT/HCPCS: 87070; 87205; 99212 ==

== ENCOUNTER → 2022-03-15 13:04 | Outpatient (BNVA) | payer MEDICARE, MEDICAID, SELFPAY | PROVIDERS: PCP Internal Medicine; Visit Provider Hospitalist | DX: J44.0 Chronic obstructive pulmonary disease with (acute) lower respiratory infection (principal); G47.33 Obstructive sleep apnea (adult) (pediatric); I27.20 Pulmonary hypertension, unspecified; J96.11 Chronic respiratory failure with hypoxia; R91.1 Solitary pulmonary nodule; C34.90 Malignant neoplasm of unspecified part of unspecified bronchus or lung | CPT/HCPCS: Q3014 ==

== ENCOUNTER 2022-04-09 16:07 | Outpatient (REF) | payer MEDICARE, MEDICAID, SELFPAY ==
--- NOTE | ~2022-04-09 | CT_ITS ---
EXAMINATION: CT CHEST WITH CONTRAST CLINICAL INFORMATION: Follow up nonsmall-cell lung carcinoma. COMPARISON: PET/CT 12/04/[address] chest 11/20/2021. TECHNIQUE: Multidetector volumetric CT imaging of the chest was obtained after the administration of 65 mL of Omnipaque 350 intravenous contrast without immediate adverse reactions. Axial MIP volume rendering provided. Sagittal and coronal reformatted images were obtained. This CT examination was performed using dose optimization techniques as appropriate, variously including the following: *Automated exposure control *Adjustment of mA and/or kV according to patient size (this includes techniques or standardized protocols for targeted exams where dose is matched to indication/reason for exam; i.e. extremities or head) *Use of iterative reconstruction technique DLP: 91 mGy-cm FINDINGS: LEAD RAMP AGENT: Loss of left lung volume with ipsilateral mediastinal shift and elevated left hemidiaphragm. LUNGS: There are postsurgical changes in lingula with loss of left lung volume and adjacent consolidation in the left upper lung. There is left apical parenchymal scarring and apical pleural thickening. Previously seen punctate nodule subpleural location right upper lobe is stable on axial image 63/6; 6 mm triangular-shaped nodule right upper lobe adjacent to major fissure, axial image 101/6, stable; 2 mm calcified nodule right lower lobe, axial image 95/6, stable; 1 cm nodule left lower lobe, axial image 132/6 is stable. There is now a bandlike parenchymal density surrounding this nodule with punctate calcification, likely scarring or atelectasis. There is a 3 mm calcified nodule right lower lobe, axial image 145/6, stable. There is diffuse centrilobular emphysematous changes bilaterally most prominent in the right lung. MEDIASTINUM: There is mild asymmetry with the left lobe slightly larger. There is a small hypodense 8 mm nodule on axial image 9/3 left lobe. Central trachea and the bronchi are widely patent. Heart size and the great vessels are normal caliber. No pericardial effusion seen. No abnormal-size mediastinal or hilar lymph nodes seen. PLEURA: There is left apical and left posterior basilar pleural thickening with dense pleural calcification left lower lobe. No pleural effusion seen. AXILLA: No lymphadenopathy. UPPER ABDOMEN: Visualized liver, spleen, pancreas and bilateral adrenal glands are unremarkable. OSSEOUS STRUCTURES: No aggressive lytic or sclerotic process seen. CT/CT chest w IV con IMPRESSION: 1. Postsurgical changes left upper lobe with loss of left lung volume and adjacent consolidation. There is left apical and left posterior basilar pleural thickening with dense pleural calcification. 2. Bilateral pulmonary nodules are stable. There is now a bandlike parenchymal density in the left lower lobe surrounding the left lower lobe nodule likely scarring or atelectasis. 3. No abnormal mediastinal or axillary lymph nodes seen. Fleischner guidelines were followed.
[2022-04-09] MEDS: iohexoL 350 MG/ML 100 ML INFUS..BTL IV (16:55)
== END 2022-04-09 16:08 | disposition home or self-care (01) ==
LOC: HO.CT 16:07
PROVIDERS: PCP Internal Medicine; Visit Provider Internal Medicine Medical Oncology
DX: C34.90 Malignant neoplasm of unspecified part of unspecified bronchus or lung (principal)
CPT/HCPCS: 71260; Q9967

== ENCOUNTER 2022-04-16 10:20 | Outpatient (RCR) | payer MEDICARE, OTHER, MEDICAID, SELFPAY ==
[2020-11-03 13:11] VITALS: BP 100/57; PULSE 117; RESP 21; TEMP 36.8; O2SAT 93; BMI 27.3
--- NOTE | 2020-11-03 13:44 | P.PNHO_ITS ---
Medical Summary - Medical Summary Date of Service: 11/03/20 Chief complaint: Follow-up for: Non-small cell lung carcinoma. Medical Summary: DIAGNOSES: 1. Recurrent non-small cell Carcinoma of the lung. 2. History of Polycythemia. 3. Hypokalemic periodic paralysis. CURRENT THERAPY: 1. Status post surgery followed by adjuvant chemotherapy with Carboplatin and Gemzar on September 07, 2006 to February 17, 2007. 2. Chest wall biopsy in June 2012 for a new left internal mammary adenopathy, revealed non-small cell carcinoma consistent with adenocarcinoma, EGFR and ALK negative. 3. Received radiation therapy, started September 27, completed end of October 2012. 4. Polycythemia, on intermittent phlebotomy. Her last phlebotomy was done on February 24 2018. Interval History Interval history: This is a pleasant 65-year-old lady here for a follow-up visit. She has retired. She is enjoying it. She has noticed some lumps on her right chest wall. Sometimes she feels a bit tired. Especially when she does not sleep too well. No chest pain or trouble breathing. Although her bleeding is not that good. No abdominal pain nausea vomiting heartburn indigestion. Bowels moving without any gross blood. She enjoys a good appetite, however despite that she has lost weight. Sometimes she feels hot in spite of the AC in the fan blowing. She is in good spirits. Rest of the review of systems is unremarkable. Review of Systems - Constitutional Reports no additional constitutional complaints, Reports lack of energy, Reports malaise, Reports weight loss - Eyes Reports no additional eye complaints - ENT Reports no additional ear, nose, mouth, and throat complaints - Cardiovascular Reports no additional cardiovascular complaints, Denies chest pain, Reports shortness of breath - Respiratory Reports no additional respiratory complaints - Gastrointestinal Reports no additional gastrointestinal complaints - Genitourinary Reports no additional female genitourinary complaints - Musculoskeletal Reports no additional musculoskeletal complaints - Integumentary/Breasts Skin/Breast: Reports no additional skin complaints - Neurologic Reports no additional neurologic complaints - Psychiatric Reports no additional psychiatric complaints - Endocrine Reports no additional endocrine complaints - Hematologic/Lymphatic Reports no additional hematologic/lymphatic complaints - Allergic/Immunologic Reports no additional allergic/immunologic complaints [facility] Medical History: Medical History (Last Reviewed 11/03/20 @ 13:15 by Joey Antoine) Calcinosis Chronic respiratory failure with hypoxia COPD (chronic obstructive pulmonary disease) Hx of cancer of lung Lung cancer BERTIN (obstructive sleep apnea) Pulmonary hypertension Raynaud's disease without gangrene SVT (supraventricular tachycardia) Functional capacity: independent ambulation Patient : No Family History: Family History (Last Reviewed 11/03/20 @ 13:15 by Joey Antoine) Father Lung cancer Mother CVD (cardiovascular disease) Surgical History: Surgical History (Last Reviewed 11/03/20 @ 13:15 by Joey Antoine) History of hip surgery History of lobectomy of lung History of thoracotomy Oncology Screenings - ECOG Performance Status ECOG Performance Status: 0 Home Medications and Allergies Home Medications Medication Instructions Recorded Confirmed Type albuterol sulfate 90 mcg/actuation 90 mcg INHALATION DAILY 02/17/20 11/03/20 History aerosol inhaler budesonide 0.5 mg/2 mL suspension 0.5 mg INHALATION BID 04/18/20 11/03/20 Histor y for nebulization potassium chloride 20 mEq 60 meq PO DAILY 04/18/20 11/03/20 History tablet,extended release(part/cryst) selexipag 600 mcg tablet 600 mcg PO NEEDED 07/24/20 11/03/20 History furosemide 20 mg tablet 60 mg PO DAILY tab 09/25/20 11/03/20 History macitentan 10 mg tablet 10 mg PO DAILY 09/25/20 11/03/20 History riociguat 2.5 mg tablet 2.5 mg PO TID 09/25/20 11/03/20 History Allergies Allergy/AdvReac Type Severity Reaction Status Date / Time cephalexin Allergy Severe rash Verified 10/07/20 11:49 Beta-Blockers AdvReac Intermediate SHORTNESS Verified 10/07/20 11:49 (Beta-Adrenergic Bloc OF BREATH Exam Vital signs: Vital Signs Temp 98.2 F 11/03/20 13:11 Pulse 117 H 11/03/20 13:11 Resp 21 H 11/03/20 13:11 BP 100/57 L 11/03/20 13:11 Pulse Ox 93 11/03/20 13:11 Intake & Output 11/02/20 11/03/20 11/03/20 18:59 06:59 18:59 Other: Weight 74.4 kg Champion Weight in Grams 88222 Weight 74.4 kg Body Mass Index 27.3 - Constitutional Present: no acute distress - Routine HEENT Exam Head: Present: normal inspection Eye: Present: normal appearance ENT: Present: mucous membranes moist - Routine Neck Exam Present: full ROM - Routine Respiratory Exam Present: CTAB - Routine Cardiovascular Exam Cardiovascular: Present: RRR, S1, S2 - Routine Abdominal Exam Present: soft, nontender - Routine Rectal Exam Patient deferred: digital exam - Routine Extremities Exam Present: nontender - Routine Back/Spine/Pelvis Exam Back/Spine: Present: full ROM - Routine Skin Exam Present: intact - Routine Neurological Exam Present: alert, oriented X3 - Routine Psychiatric Exam Present: normal affect Data - Labs CBC & Chem 7: 11/03/20 13:09 11/03/20 13:09 Progress Note: A/P (1) Non-small cell lung cancer Status: Acute Assessment and plan: 65 year-old lady with history of: 1) Non-small cell lung Carcinoma. Initially diagnosed in spring. She had adjuvant chemotherapy with Carbo/Gemzar completed February 17, 2007. She then developed disease recurrence in the summer and received radiation therapy. She had a CT chest on September 15 which revealed: Emphysema. Stable postsurgical change to the left hemithorax following partial left upper lobe resection. No evidence of recurrent or metastatic disease seen. Recently, she had not been doing too well. She is still shortness of breath, especially on exertion. She has been under the care of the loan coordinator, Dr. Carmona, for pulmonary hypertension. He had initially advised Riociguat. However she did not tolerate it. She was then on Sildenafil BID. Now she is on a doublet. The plan is to add a 3rd agent. Hopefully that will relieve some of her symptoms, so she can function. She is still working [address] scan from April 28 revealed: 1. Stable 1 cm irregular shaped nodule right lower lobe subpleural reticular location. 2. Postsurgical changes, parenchymal thickening/scarring, air bronchogram with traction bronchiectasis left upper lobe and mid lung region are stable. 3. There is underlying severe emphysema. No evidence for recurrence of the lung cancer. I faxed a copy of the CAT scan of the chest, to Dr. Ocampo for his review. CT scan of the chest from 12/16/19: No significant interval change including a right lower lobe subpleural nodule. This is not significantly changed in size since the [address] scan and do not show significant activity on the previous PET CT scan. These characteristics favor a benign entity. No significant new or suspicious abnormality. Chest CT follow-up is recommended as per protocol. She feels some chest wall nodule on the right chest. She is eating well however she has lost a lot a weight. PLAN: I will proceed with a repeat imaging of her chest for further evaluation. She will continue to follow up with Dr. Carmona, for her pulmonary issues. She will return here in 6 months for a followup visit. However, If she also has symptoms of fatigue and headaches she will call. Her potassium was low today. Results were forwarded to her primary. She was advised to take extra dose of potassium. Thank you, CC: Dr. Laury Soto. Dr. Neftaly Carmona. (2) Erythrocytosis Status: Acute Assessment and plan: 2. POLYCYTHEMIA: Most likely related to her underlying pulmonary hypertension. In the meantime, her hemoglobin is within normal limit range. She had her phlebotomy, on February 24 2018. Her hemoglobin is normal now so she does not need further phlebotomy. PLAN: Will continue to monitor. - Time Spent With Patient Time Spent with Patient (in minutes): 35
[2020-11-03 13:51] LABS: MANUAL DIFF FLAG NO
[2020-11-03 14:04] LABS: Basophils Absolute Auto 0.1 X10*3/uL (0.0-0.2); Basophils Percent Auto 0.9 % (0-2); Eosinophils Absolute Auto 0.3 X10*3/uL (0.0-0.4); Eosinophils Percent Auto 3.7 % (0-4); Hematocrit 43.2 % (37-47); Hemoglobin 14.5 g/dl (12.0-16.0); Imm Gran Abs Auto 0.03 X10*3/uL (0.00-0.03); Imm Gran Pct Auto 0.4 % (0.0-0.4); Lymphocytes Absolute Auto 1.5 X10*3/uL (1.2-4.9); Lymphocytes Percent Auto 18.6 % (20-40); Mean Corpuscular HGB Conc 33.6 g/dl (31.0-35.0); Mean Corpuscular Hemoglobin 26.4 pg (27.0-33.0); Mean Corpuscular Volume 78.5 fL (80-98); Mean Platelet Volume 9.4 fL (9.4-12.3); Monocytes Absolute Auto 0.8 X10*3/uL (0.1-1.2); Monocytes Percent Auto 10.3 % (2-11); Neutrophils Absolute Auto 5.2 X10*3/uL (2.0-8.3); Neutrophils Percent Auto 66.1 % (45-73); Platelet Count 278 X10*3/uL (160-400); Red Cell Distribution Width 17.2 % (11.0-16.0); White Blood Count 7.9 X10*3/uL (4.8-10.8)
--- NOTE | 2020-11-03 14:12 | MHC.HEMONCMA ---
Pt in today for onc follow up and states she is feeling fine. also states she felt a small lump on her breast and has not been sleeping well. clinical summary updated and labs were drawn. Pt will follow up with in 6 months.
[2020-11-03 14:41] LABS: Alanine Aminotransferase 10 U/L (0-31); Albumin Level 4.2 g/dL (3.5-5.0); Alkaline Phosphatase 77 U/L (39-117); Aspartate Amino Transferase 16 U/L (5-31); Bilirubin Total 0.9 mg/dL (0.0-1.0); Blood Urea Nitrogen 26 mg/dL (9-16); Calcium 9.5 mg/dL (8.4-10.2); Creatinine Clr Calc Pharmacy 38.3; Estimated Glomerular Filt Rate 35; Glucose Random 111 mg/dL (60-115); Total Protein 7.5 g/dL (6.5-8.0)
[2020-11-03 14:56] LABS: Anion Gap 18 (12-20); Carbon Dioxide 22 mmol/L (22-29); Chloride 102 mmol/L (96-108); Potassium 2.8 mmol/L (3.3-5.1); Sodium 139 mmol/L (135-145)
--- NOTE | 2020-11-10 15:51 | MHC.HEMONCMA ---
Spoke with patient, I let her know that her CT scan is in the process of being scheduled. I let her know that if she does not hear from anyone by Friday to call me and I will see what is taking so long. She understands.
--- NOTE | 2020-11-29 16:20 | PM.EVENT ---
Reviewed CT chest was performed November 21 with patient. Shows increase in size of right lower lobe lung nodule. Discussed CT-guided biopsy. I have also recommended a PET-CT as patient reports 60 lb weight loss in the last 1 year. PET-CT to evaluate for extrapulmonary metastasis.
--- NOTE | 2020-12-01 12:16 | MHC.HEMONCMA ---
Started the process for PA for PET scan. Also contacted radiology to schedule CT guided biopsy.
--- NOTE | 2020-12-07 10:40 | HO.HEMONCPA ---
[facility] FOR PET CT APPROVED. AUTH #[id number]. DOS 12/07/20 to 06/09/2021. CASE # [id number].
--- NOTE | 2020-12-07 12:42 | MHC.HEMONC ---
Pet scan documents faxed to [facility]. awaiting appt date & time
--- NOTE | 2020-12-15 13:55 | MHC.HEMONCMA ---
Called and spoke with the patient to let her know the time and date of her lung biopsy. Her biopsy is scheduled for 01/02/2021 at 12:30pm with an 11am arrival, she must be NPO for 6 hours before biopsy. I explained all of this to her. I also let her know that a nurse from will call the day before to go over everything and answer any questions or concerns at that time. She did ask about her PET scan, and I told her that unfortunately we need to have biopsy results in order to schedule that even though the insurance approved the PET. She is okay with this plan.
--- NOTE | 2021-01-02 10:41 | MHC.HEMONCMA ---
Patient called, stating that she did not want to be asleep for her lung biopsy. She states that she has been awake for them in the past. I spoke with Dr Vogt and she states that it is okay with her but to check with Radiology. I called and spoke with Dr Schwartz and he states that if the patient wants to be awake that it is fine with him, but he will speak with her about it when she gets in the office. I called the patient and relayed this information for, she states that she is happy and is on her way there.
--- NOTE | 2021-01-09 12:05 | PM.HEMONCPN ---
Medical Summary - Medical Summary Date of Service: 01/09/21 Chief complaint: Follow-up for: Recurrent right lower lung cancer. Medical Summary: DIAGNOSES: 1. Recurrent non-small cell Carcinoma of the lung. 2. History of Polycythemia. 3. Hypokalemic periodic paralysis. CURRENT THERAPY: 1. Status post surgery followed by adjuvant chemotherapy with Carboplatin and Gemzar on September 07, 2006 to February 17, 2007. 2. Chest wall biopsy in June 2012 for a new left internal mammary adenopathy, revealed non-small cell carcinoma consistent with adenocarcinoma, EGFR and ALK negative. 3. Received radiation therapy, started September 27, completed end of October 2012. 4. Polycythemia, on intermittent phlebotomy. Her last phlebotomy was done on February 24 2018. Interval History Interval history: This is a pleasant 65-year-old lady here for a follow-up visit. She does not feel well. She tells me that she has been eating but is consistently losing weight. Energy level is pretty good. Sometimes she feels a bit tired. Especially when she does not sleep too well. No chest pain. Her breathing is not that good. She has underlying pulmonary hypertension, and COPD. She is under the care of Dr. Carmona. She is on a bunch of inhalers and other meds. She has a headache at times which he attributes to the pulmonary hypertension medications. She is going for pulmonary function test tomorrow. No abdominal pain nausea vomiting heartburn indigestion. Bowels moving without any gross blood. She enjoys a good appetite, however despite that she has lost weight, 60+ pounds. She is in good spirits. Rest of the review of systems is unremarkable. CT scan of the chest from 11/21 revealed: Severe underlying emphysema. Postoperative changes from left thoracotomy and pulmonary resection. Increasing solid component of a nodule in the right lower lobe posteriorly. This is concerning for new or metastatic malignancy. This may be amenable to CT-guided sampling. FNA of right lower lobe lung nodule from 01/02 revealed: Positive for malignancy consistent with adenocarcinoma. Previous history: She has retired. She is enjoying it. She has noticed some lumps on her right chest wall. Review of Systems - Constitutional Reports no additional constitutional complaints, Reports fatigue, Reports lack of energy, Reports weight loss - Eyes Reports no additional eye complaints - ENT Reports no additional ear, nose, mouth, and throat complaints - Cardiovascular Reports no additional cardiovascular complaints - Respiratory Reports no additional respiratory complaints - Gastrointestinal Reports no additional gastrointestinal complaints - Genitourinary Reports no additional female genitourinary complaints - Musculoskeletal Reports no additional musculoskeletal complaints - Integumentary/Breasts Skin/Breast: Reports no additional skin complaints - Neurologic Reports no additional neurologic complaints - Psychiatric Reports no additional psychiatric complaints - Endocrine Reports no additional endocrine complaints - Hematologic/Lymphatic Reports no additional hematologic/lymphatic complaints - Allergic/Immunologic Reports no additional allergic/immunologic complaints [facility] Medical History: Medical History (Last Updated 12/26/20 @ 20:57 by Neftaly Carmona MD) Calcinosis Chronic respiratory failure with hypoxia COPD (chronic obstructive pulmonary disease) Hx of cancer of lung Lung cancer BERTIN (obstructive sleep apnea) Pulmonary hypertension Pulmonary nodule Raynaud's disease without gangrene SVT (supraventricular tachycardia) Functional capacity: independent ambulation Patient : No Family History: Family History (Last Reviewed 11/03/20 @ 13:15 by Joey Antoine) Father Lung cancer Mother CVD (cardiovascular disease) Surgical History: Surgical History (Last Reviewed 11/03/20 @ 13:15 by Joey Antoine) History of hip surgery History of lobectomy of lung History of thoracotomy Social History: Social History (Last Updated 12/26/20 @ 13:07 by YANA Morgan) Tobacco History: Patient Tobacco Use Status: Never used Tobacco Nutrition Assessment: Patient : No Home Medications and Allergies Home Medications Medication Instructions Recorded Confirmed Type albuterol sulfate 90 mcg/actuation 90 mcg INHALATION DAILY 02/17/20 11/03/20 History aerosol inhaler budesonide 0.5 mg/2 mL suspension 0.5 mg INHALATION BID 04/18/20 11/03/20 History for nebulization potassium chloride 20 mEq 60 meq PO DAILY 04/18/20 11/03/20 History tablet,extended release(part/cryst) selexipag 600 mcg tablet 600 mcg PO NEEDED 07/24/20 11/03/20 History furosemide 20 mg tablet 60 mg PO DAILY tab 09/25/20 11/03/20 History macitentan 10 mg tablet 10 mg PO DAILY 09/25/20 11/03/20 History riociguat 2.5 mg tablet 2.5 mg PO TID 09/25/20 11/03/20 History Allergies Allergy/AdvReac Type Severity Reaction Status Date / Time cephalexin Allergy Severe rash Verified 01/02/21 11:28 Beta-Blockers AdvReac Intermediate SHORTNESS Verified 01/02/21 11:28 (Beta-Adrenergic Bloc OF BREATH Exam Vital signs: Vital Signs Temp 98.2 F 11/03/20 13:11 Pulse 117 H 11/03/20 13:11 Resp 21 H 11/03/20 13:11 BP 100/57 L 11/03/20 13:11 Pulse Ox 93 11/03/20 13:11 Weight 74.4 kg Body Mass Index 27.3 - Constitutional Present: no acute distress - Routine HEENT Exam Head: Present: normal inspection Eye: Present: normal appearance ENT: Present: mucous membranes moist - Routine Neck Exam Present: full ROM - Routine Respiratory Exam Present: CTAB - Routine Cardiovascular Exam Cardiovascular: Present: RRR, S1, S2 - Routine Abdominal Exam Present: soft, nontender - Routine Rectal Exam Patient deferred: digital exam - Routine Extremities Exam Present: nontender - Routine Back/Spine/Pelvis Exam Back/Spine: Present: full ROM - Routine Skin Exam Present: intact - Routine Neurological Exam Present: alert, oriented X3 - Routine Psychiatric Exam Present: normal affect Data - Labs CBC & Chem 7: 01/09/21 12:11 01/09/21 12:11 Labs: 11/03/20 13:09 CMP [Comprehensive Met. Panel] Routine Complete Blood Count Auto Diff Routine Laboratory Last Values WBC 7.9 X10*3/uL (4.8-10.8) 11/03/20 13:09 RBC 5.50 X10*6/uL (4.20-5.50) 11/03/20 13:09 Hgb 14.5 g/dl (12.0-16.0) 11/03/20 13:09 Hct 43.2 % (37-47) 11/03/20 13:09 MCV 78.5 fL (80-98) L 11/03/20 13:09 MCH 26.4 pg (27.0-33.0) L 11/03/20 13:09 MCHC 33.6 g/dl (31.0-35.0) 11/03/20 13:09 RDW 17.2 % (11.0-16.0) H 11/03/20 13:09 Plt Count 278 X10*3/uL (160-400) 11/03/20 13:09 MPV 9.4 fL (9.4-12.3) 11/03/20 13:09 Immature Gran % (Auto) 0.4 % (0.0-0.4) 11/03/20 13:09 Neut % (Auto) 66.1 % (45-73) 11/03/20 13:09 Lymph % (Auto) 18.6 % (20-40) L 11/03/20 13:09 Bremer % (Auto) 10.3 % (2-11) 11/03/20 13:09 Eos % (Auto) 3.7 % (0-4) 11/03/20 13:09 Baso % (Auto) 0.9 % (0-2) 11/03/20 13:09 Lymph # (Auto) 1.5 X10*3/uL (1.2-4.9) 11/03/20 13:09 Bremer # (Auto) 0.8 X10*3/uL (0.1-1.2) 11/03/20 13:09 Eos # (Auto) 0.3 X10*3/uL (0.0-0.4) 11/03/20 13:09 Baso # (Auto) 0.1 X10*3/uL (0.0-0.2) 11/03/20 13:09 Abs Immat Gran (auto) 0.03 X10*3/uL (0.00-0.03) 11/03/20 13:09 Absolute Neuts (auto) 5.2 X10*3/uL (2.0-8.3) 11/03/20 13:09 Absolute Nucleated RBC 0.000 X10*3/uL (0.0-0.012) 11/03/20 13:09 Nucleated RBC % (auto) 0.0 /100WBC (0.0-0.2) 11/03/20 13:09 Sodium 139 mmol/L (135-145) 11/03/20 13:09 Potassium 2.8 mmol/L (3.3-5.1) L 11/03/20 13:09 Chloride 102 mmol/L (96-108) 11/03/20 13:09 Carbon Dioxide 22 mmol/L (22-29) 11/03/20 13:09 Anion Gap 18 (12-20) 11/03/20 13:09 BUN 26 mg/dL (9-16) H 11/03/20 13:09 Creatinine 1.50 mg/dL (0.5-1.4) H 11/03/20 13:09 Estim Creat Clear Calc 38.3 11/03/20 13:09 Estimated GFR 35 11/03/20 13:09 Random Glucose 111 mg/dL (60-115) D 11/03/20 13:09 Calcium 9.5 mg/dL (8.4-10.2) 11/03/20 13:09 Total Bilirubin 0.9 mg/dL (0.0-1.0) 11/03/20 13:09 AST 16 U/L (5-31) 11/03/20 13:09 ALT 10 U/L (0-31) 11/03/20 13:09 Alkaline Phosphatase 77 U/L (39-117) 11/03/20 13:09 Total Protein 7.5 g/dL (6.5-8.0) 11/03/20 13:09 Albumin 4.2 g/dL (3.5-5.0) 11/03/20 13:09 Assessment and Plan Patient Active problem list reviewed?: Yes (1) Non-small cell lung cancer Status: Acute Assessment and plan: 65 year-old lady with history of: 1) Non-small cell lung Carcinoma. Initially diagnosed in spring. She had adjuvant chemotherapy with Carbo/Gemzar completed February 17, 2007. She then developed disease recurrence in the summer and received radiation therapy. She had a CT chest on September 15 which revealed: Emphysema. Stable postsurgical change to the left hemithorax following partial left upper lobe resection. No evidence of recurrent or metastatic disease seen. Recently, she had not been doing too well. She is still shortness of breath, especially on exertion. She has been under the care of the dairy farm supervisor, Dr. Carmona, for pulmonary hypertension. He had initially advised Riociguat. However she did not tolerate it. She was then on Sildenafil BID. Now she is on a doublet. The plan is to add a 3rd agent. Hopefully that will relieve some of her symptoms, so she can function. She is still working [address] scan from April 28 revealed: 1. Stable 1 cm irregular shaped nodule right lower lobe subpleural reticular location. 2. Postsurgical changes, parenchymal thickening/scarring, air bronchogram with traction bronchiectasis left upper lobe and mid lung region are stable. 3. There is underlying severe emphysema. No evidence for recurrence of the lung cancer. I faxed a copy of the CAT scan of the chest, to Dr. Ocampo for his review. CT scan of the chest from 12/16/19: No significant interval change including a right lower lobe subpleural nodule. This is not significantly changed in size since the [address] scan and do not show significant activity on the previous PET CT scan. These characteristics favor a benign entity. No significant new or suspicious abnormality. Chest CT follow-up is recommended as per protocol. She feels some chest wall nodule on the right chest. She is eating well however she has lost a lot a weight. CT scan of the chest from 11/21 revealed: Severe underlying emphysema. Postoperative changes from left thoracotomy and pulmonary resection. Increasing solid component of a nodule in the right lower lobe posteriorly. This is concerning for new or metastatic malignancy. This may be amenable to CT-guided sampling. There is a juxtapleural mass-like abnormality posteromedial right lower lobe. This appears somewhat more solid. Measurements of the solid component as follows; 11/21/2020-1.4 x 1.4 cm 12/16/2019- 1.1 x 0.7 cm 04/28/2019-0.9 x 0.8 cm 05/20/2018-0.7 x 0.5 cm There is some traction bronchiectasis. MEDIASTINUM: There is mediastinal shift to the left. There is a lymph node in the anterior mediastinal fat 11/21/2020-0.8 cm 12/16/2019-0.8 cm 05/20/2018-0.8 cm FNA of right lower lobe lung nodule from 01/02 revealed: Positive for malignancy consistent with adenocarcinoma. I discussed the above results with her. She will need further staging workup. Will check PET scan and MRI of the brain. If the above confirm localized disease, will consider local therapy. One option is to proceed with surgical resection however, I am very concerned about her underlying lung function. She has severe emphysema and pulmonary hypertension. She has already had a lung resection on the other side. Once disease confined to the right lower lobe lung nodule is confirmed, will consider SBRT for the lung nodule. PLAN: To proceed with a PET scan. This has already been approved. Will proceed with MRI of the brain. I will refer her for radiation therapy consultation. She will continue to follow up with Dr. Carmona, for her pulmonary issues. She will return here in 1 month for a followup visit. However, If she has symptoms of fatigue and headaches she will call. Her potassium was low today. Results were forwarded to her primary. She was advised to take extra dose of potassium. Thank you, CC: Dr. Laury Soto. Dr. Neftaly Carmona. Dr. Pete Byrne. (2) Erythrocytosis Status: Acute Assessment and plan: 2. POLYCYTHEMIA: Most likely related to her underlying pulmonary hypertension. In the meantime, her hemoglobin is within normal limit range. She had her phlebotomy, on February 24 2018. Her hemoglobin is normal now so she does not need further phlebotomy. PLAN: Will continue to monitor. - Time Spent With Patient Time Spent with Patient (in minutes): 35
[2021-01-09 12:14] LABS: MANUAL DIFF FLAG NO
[2021-01-09 12:18] LABS: Basophils Absolute Auto 0.1 X10*3/uL (0.0-0.2); Eosinophils Absolute Auto 0.3 X10*3/uL (0.0-0.4); Eosinophils Percent Auto 4.1 % (0-4); Hematocrit 45.9 % (37-47); Hemoglobin 15.7 g/dl (12.0-16.0); Imm Gran Abs Auto 0.03 X10*3/uL (0.00-0.03); Imm Gran Pct Auto 0.4 % (0.0-0.4); Lymphocytes Absolute Auto 1.4 X10*3/uL (1.2-4.9); Lymphocytes Percent Auto 17.6 % (20-40); Mean Corpuscular HGB Conc 34.2 g/dl (31.0-35.0); Mean Corpuscular Hemoglobin 27.1 pg (27.0-33.0); Mean Corpuscular Volume 79.3 fL (80-98); Mean Platelet Volume 8.6 fL (9.4-12.3); Monocytes Absolute Auto 0.7 X10*3/uL (0.1-1.2); Monocytes Percent Auto 8.5 % (2-11); Neutrophils Absolute Auto 5.3 X10*3/uL (2.0-8.3); Neutrophils Percent Auto 68.4 % (45-73); Platelet Count 297 X10*3/uL (160-400); Red Blood Count 5.79 X10*6/uL (4.20-5.50); Red Cell Distribution Width 17.6 % (11.0-16.0); White Blood Count 7.8 X10*3/uL (4.8-10.8)
[2021-01-09 12:44] LABS: Alanine Aminotransferase 15 U/L (0-31); Albumin Level 4.5 g/dL (3.5-5.0); Alkaline Phosphatase 75 U/L (39-117); Aspartate Amino Transferase 18 U/L (5-31); Blood Urea Nitrogen 26 mg/dL (9-16); Carbon Dioxide 24 mmol/L (22-29); Chloride 103 mmol/L (96-108); Creatinine Clr Calc Pharmacy 33.9; Estimated Glomerular Filt Rate 30; Glucose Random 136 mg/dL (60-115); Sodium 142 mmol/L (135-145); Total Protein 7.9 g/dL (6.5-8.0)
[2021-01-09 12:52] LABS: Anion Gap 19 (12-20); Potassium 2.8 mmol/L (3.3-5.1)
--- NOTE | 2021-01-09 16:03 | MHC.HEMONCMA ---
Pt came in for onc follow up and states she is feeling well, clinical summary was updated and labs were drawn. pt will be in 05/07/2021 for f/u.
--- NOTE | 2021-01-12 09:31 | MHC.HEMONCMA ---
[place] PET imaging form along with supporting documentation has been faxed over to [facility] for them to give date/time.
--- NOTE | 2021-01-12 12:12 | MHC.HEMONCMA ---
Patient called with a few questions/concerns. She is wondering when her PET is going to be done, I told her she is tentatively booked for 01/16 but I am not sure about the time. They will either call her today or Friday with the time, but I did tell her I will call and try to see if they know the time for her. She also states that she needs a medicine that she can take before she goes into the machine because she is claustrophobic, I will ask Dr Vogt to send that to her pharmacy. She also wanted me to let Dr Vogt know that the letter she wrote she is missing information about her chemotherapy and radiation from 2004. I let the patient know that I will work on the date and the medication and I will also let Dr Vogt know about the missing date. She is okay with the plan and looks forward to my call back.
[2021-01-29 12:16] LABS: MANUAL DIFF FLAG NO
[2021-01-29 12:22] LABS: Basophils Absolute Auto 0.1 X10*3/uL (0.0-0.2); Basophils Percent Auto 0.8 % (0-2); Eosinophils Absolute Auto 0.3 X10*3/uL (0.0-0.4); Eosinophils Percent Auto 3.4 % (0-4); Hematocrit 43.7 % (37-47); Hemoglobin 15.1 g/dl (12.0-16.0); Imm Gran Abs Auto 0.03 X10*3/uL (0.00-0.03); Imm Gran Pct Auto 0.4 % (0.0-0.4); Lymphocytes Absolute Auto 0.9 X10*3/uL (1.2-4.9); Lymphocytes Percent Auto 11.8 % (20-40); Mean Corpuscular HGB Conc 34.6 g/dl (31.0-35.0); Mean Corpuscular Hemoglobin 27.6 pg (27.0-33.0); Mean Corpuscular Volume 79.7 fL (80-98); Monocytes Absolute Auto 0.7 X10*3/uL (0.1-1.2); Monocytes Percent Auto 8.2 % (2-11); Neutrophils Percent Auto 75.4 % (45-73); Platelet Count 252 X10*3/uL (160-400); Red Blood Count 5.48 X10*6/uL (4.20-5.50); Red Cell Distribution Width 16.2 % (11.0-16.0)
[2021-01-29 12:38] LABS: Alanine Aminotransferase 12 U/L (0-31); Albumin Level 4.3 g/dL (3.5-5.0); Alkaline Phosphatase 71 U/L (39-117); Anion Gap 15 (12-20); Aspartate Amino Transferase 15 U/L (5-31); Bilirubin Total 0.9 mg/dL (0.0-1.0); Blood Urea Nitrogen 28 mg/dL (9-16); Calcium 9.9 mg/dL (8.4-10.2); Carbon Dioxide 24 mmol/L (22-29); Chloride 105 mmol/L (96-108); Creatinine Clr Calc Pharmacy 40.1; Estimated Glomerular Filt Rate 37; Glucose Random 98 mg/dL (60-115); Potassium 3.3 mmol/L (3.3-5.1); Sodium 141 mmol/L (135-145); Total Protein 7.4 g/dL (6.5-8.0)
[2021-01-29 14:38] VITALS: BP 127/66; PULSE 88; RESP 14; TEMP 36.1; O2SAT 95; BMI 26.7
--- NOTE | 2021-01-29 14:41 | MHC.HEMONCMA ---
Pt came in for onc f/u and states they are doing well. Clinical summary was updated and labs were drawn. pt will be in for flu on 02/12/2021
--- NOTE | 2021-01-29 17:05 | P.PNHO_ITS ---
Medical Summary - Medical Summary Date of Service: 01/29/21 Chief complaint: Follow-up for: Recurrent lung cancer. Medical Summary: DIAGNOSES: 1. Recurrent non-small cell Carcinoma of the lung. 2. History of Polycythemia. 3. Hypokalemic periodic paralysis. CURRENT THERAPY: 1. Status post surgery followed by adjuvant chemotherapy with Carboplatin and Gemzar on September 07, 2006 to February 17, 2007. 2. Chest wall biopsy in June 2012 for a new left internal mammary adenopathy, revealed non-small cell carcinoma consistent with adenocarcinoma, EGFR and ALK negative. 3. Received radiation therapy, started September 27, completed end of October 2012. 4. Polycythemia, on intermittent phlebotomy. Her last phlebotomy was done on February 24 2018. Interval History Interval history: This is a pleasant 65-year-old lady here for a follow-up visit. She does not feel well. She has some lesions on her hands. They are painful. He has noticed some redness and swelling of her right elbow. She tells me that she has been eating but is consistently losing weight. Energy level is pretty good. Sometimes she feels a bit tired. Especially when she does not sleep too well. No chest pain. Her breathing is not that good. She has underlying pulmonary hypertension, and COPD. She is under the care of Dr. Carmona. She is on a bunch of inhalers and other meds. She has a headache at times which he attributes to the pulmonary hypertension medications. She is going for pulmonary function test tomorrow. No abdominal pain nausea vomiting heartburn indigestion. Bowels moving without any gross blood. She enjoys a good appetite, however despite that she has lost weight, 60+ pounds. She is in good spirits. Rest of the review of systems is unremarkable. She had a PET scan which revealed: 1. Although mild in intensity, increased FDG activity associated with the posterior pleural-based right lower lobe pulmonary nodule is strongly suspicious for malignancy. Correlation with recent biopsy results is recommended. 2. Mild FDG activity associated with scarring and atelectasis in the left upper lobe most likely represents posttreatment changes. The absence of a discrete focus of more prominently increased FDG activity suggests this is not malignant in etiology. 3. A newly FDG avid focus in the rectosigmoid colon is suspicious for malignancy. While this may be physiological, it is a significant change from the 01/28/2019 PET/CT scan. Correlation with colonoscopy is recommended. 4. No additional abnormalities suspicious for other metastatic or malignant lesions are noted. 5. Cholelithiasis. 6. Vascular calcifications including coronary. Recent history: CT scan of the chest from 11/21 revealed: Severe underlying emphysema. Postoperative changes from left thoracotomy and pulmonary resection. Increasing solid component of a nodule in the right lower lobe posteriorly. This is concerning for new or metastatic malignancy. This may be amenable to CT- guided sampling. FNA of right lower lobe lung nodule from 01/02 revealed: Positive for malignancy consistent with adenocarcinoma. Previous history: She has retired. She is enjoying it. She has noticed some lumps on her right chest wall. Review of Systems - Constitutional Reports system reviewed and no additional complaints, except as documented, Reports fatigue, Reports lack of energy, Reports malaise, Reports poor appetite, Reports weakness, Reports weight loss, Denies fever(s), Denies weight gain - Eyes Reports system reviewed and no additional complaints, except as documented - ENT Reports system reviewed and no additional complaints, except as documented - Cardiovascular Reports system reviewed and no additional complaints, except as documented - Respiratory Reports no additional respiratory complaints - Gastrointestinal Reports system reviewed and no additional complaints, except as documented - Genitourinary Reports no additional female genitourinary complaints - Musculoskeletal Reports system reviewed and no additional complaints, except as documented Comments: Red and swollen right elbow. - Integumentary/Breasts Skin/Breast: Reports no additional skin complaints - Neurologic Reports system reviewed and no additional complaints, except as documented - Psychiatric Reports system reviewed and no additional complaints, except as documented - Endocrine Reports no additional endocrine complaints - Hematologic/Lymphatic Reports system reviewed and no additional complaints, except as documented - Allergic/Immunologic Reports system reviewed and no additional complaints, except as documented [facility] Medical History: Medical History (Last Updated 02/02/21 @ 13:25 by Laury Soto MD) Calcinosis Chronic respiratory failure with hypoxia COPD (chronic obstructive pulmonary disease) Gout Hx of cancer of lung Lung cancer BERTIN (obstructive sleep apnea) Pulmonary hypertension Pulmonary nodule Raynaud's disease without gangrene Right heart failure SVT (supraventricular tachycardia) Functional capacity: independent ambulation Patient : No Family History: Family History (Last Updated 02/02/21 @ 12:48 by Yenny Naranjo CMA) Father Lung cancer Mother CVD (cardiovascular disease) Surgical History: Surgical History (Last Reviewed 02/01/21 @ 14:37 by Bhavesh Adames MD) History of hip surgery History of lobectomy of lung History of thoracotomy Social History: Social History (Last Reviewed 02/01/21 @ 14:37 by Bhavesh Adames MD) Living Situation History: Housing: House Tobacco History: Patient Tobacco Use Status: Former Tobacco user e-Cigarette/Vaping Use: Never Used Occupation Assessmet: Current occupational status: retired Oncology Screenings - ECOG Performance Status ECOG Performance Status: 1 Home Medications and Allergies Home Medications Medication Instructions Recorded Confirmed Type albuterol sulfate 90 mcg/actuation 90 mcg INHALATION DAILY 02/17/20 02/01/21 His tory aerosol inhaler budesonide 0.5 mg/2 mL suspension 0.5 mg INHALATION BID 04/18/20 02/01/21 History for nebulization potassium chloride 20 mEq 60 meq PO DAILY 04/18/20 02/01/21 History tablet,extended release(part/cryst) furosemide 20 mg tablet 60 mg PO DAILY tab 09/25/20 02/01/21 History riociguat 2.5 mg tablet 2.5 mg PO TID 09/25/20 02/01/21 History macitentan 10 mg tablet 10 mg PO DAILY 02/01/21 02/01/21 History selexipag 600 mcg tablet 600 mcg PO .in the evening tab 02/01/21 02/01/21 History selexipag 800 mcg tablet 800 mcg PO DAILY 02/01/21 02/01/21 History Allergies Allergy/AdvReac Type Severity Reaction Status Date / Time cephalexin Allergy Severe rash Verified 02/01/21 08:09 Beta-Blockers AdvReac Intermediate SHORTNESS Verified 02/01/21 08:09 (Beta-Adrenergic Bloc OF BREATH Exam Vital signs: Vital Signs Temp 97 F 01/29/21 14:38 Pulse 88 01/29/21 14:38 Resp 14 01/29/21 14:38 BP 127/66 01/29/21 14:38 Pulse Ox 95 01/29/21 14:38 Intake & Output 01/28/21 01/29/21 01/29/21 18:59 06:59 18:59 Other: Weight 72.9 kg Weight in Grams [id number] Weight 72.9 kg Body Mass Index 26.7 - Constitutional Present: no acute distress - Routine HEENT Exam Head: Present: normal inspection Eye: Present: normal appearance ENT: Present: mucous membranes moist - Routine Neck Exam Present: full ROM - Routine Respiratory Exam Present: CTAB - Routine Cardiovascular Exam Cardiovascular: Present: RRR, S1, S2 - Routine Abdominal Exam Present: soft, nontender - Routine Rectal Exam Patient deferred: digital exam - Routine Extremities Exam Present: nontender - Routine Back/Spine/Pelvis Exam Back/Spine: Present: full ROM - Routine Skin Exam Present: intact - Routine Neurological Exam Present: alert, oriented X3 - Routine Psychiatric Exam Present: normal affect Data - Labs CBC & Chem 7: 01/29/21 12:10 01/29/21 12:10 Labs: 11/03/20 13:09 CMP [Comprehensive Met. Panel] Routine Complete Blood Count Auto Diff Routine Laboratory Last Values WBC 7.9 X10*3/uL (4.8-10.8) 11/03/20 13:09 RBC 5.50 X10*6/uL (4.20-5.50) 11/03/20 13:09 Hgb 14.5 g/dl (12.0-16.0) 11/03/20 13:09 Hct 43.2 % (37-47) 11/03/20 13:09 MCV 78.5 fL (80-98) L 11/03/20 13:09 MCH 26.4 pg (27.0-33.0) L 11/03/20 13:09 MCHC 33.6 g/dl (31.0-35.0) 11/03/20 13:09 RDW 17.2 % (11.0-16.0) H 11/03/20 13:09 Plt Count 278 X10*3/uL (160-400) 11/03/20 13:09 MPV 9.4 fL (9.4-12.3) 11/03/20 13:09 Immature Gran % (Auto) 0.4 % (0.0-0.4) 11/03/20 13:09 Neut % (Auto) 66.1 % (45-73) 11/03/20 13:09 Lymph % (Auto) 18.6 % (20-40) L 11/03/20 13:09 [place] % (Auto) 10.3 % (2-11) 11/03/20 13:09 Eos % (Auto) 3.7 % (0-4) 11/03/20 13:09 Baso % (Auto) 0.9 % (0-2) 11/03/20 13:09 Lymph # (Auto) 1.5 X10*3/uL (1.2-4.9) 11/03/20 13:09 [place] # (Auto) 0.8 X10*3/uL (0.1-1.2) 11/03/20 13:09 Eos # (Auto) 0.3 X10*3/uL (0.0-0.4) 11/03/20 13:09 Baso # (Auto) 0.1 X10*3/uL (0.0-0.2) 11/03/20 13:09 Abs Immat Gran (auto) 0.03 X10*3/uL (0.00-0.03) 11/03/20 13:09 Absolute Neuts (auto) 5.2 X10*3/uL (2.0-8.3) 11/03/20 13:09 Absolute Nucleated RBC 0.000 X10*3/uL (0.0-0.012) 11/03/20 13:09 Nucleated RBC % (auto) 0.0 /100WBC (0.0-0.2) 11/03/20 13:09 Sodium 139 mmol/L (135-145) 11/03/20 13:09 Potassium 2.8 mmol/L (3.3-5.1) L 11/03/20 13:09 Chloride 102 mmol/L (96-108) 11/03/20 13:09 Carbon Dioxide 22 mmol/L (22-29) 11/03/20 13:09 Anion Gap 18 (12-20) 11/03/20 13:09 BUN 26 mg/dL (9-16) H 11/03/20 13:09 Creatinine 1.50 mg/dL (0.5-1.4) H 11/03/20 13:09 Estim Creat Clear Calc 38.3 11/03/20 13:09 Estimated GFR 35 11/03/20 13:09 Random Glucose 111 mg/dL (60-115) D 11/03/20 13:09 Calcium 9.5 mg/dL (8.4-10.2) 11/03/20 13:09 Total Bilirubin 0.9 mg/dL (0.0-1.0) 11/03/20 13:09 AST 16 U/L (5-31) 11/03/20 13:09 ALT 10 U/L (0-31) 11/03/20 13:09 Alkaline Phosphatase 77 U/L (39-117) 11/03/20 13:09 Total Protein 7.5 g/dL (6.5-8.0) 11/03/20 13:09 Albumin 4.2 g/dL (3.5-5.0) 11/03/20 13:09 Assessment and Plan Patient Active problem list reviewed?: Yes (1) Non-small cell lung cancer Status: Acute Assessment and plan: 65 year-old lady with history of: 1) Non-small cell lung Carcinoma. Initially diagnosed in spring. She had adjuvant chemotherapy with Carbo/Gemzar completed February 17, 2007. She then developed disease recurrence in the summer and received radiation therapy. She had a CT chest on September 15 which revealed: Emphysema. Stable postsurgical change to the left hemithorax following partial left upper lobe resection. No evidence of recurrent or metastatic disease seen. Recently, she had not been doing too well. She is still shortness of breath, especially on exertion. She has been under the care of the cost manager, Dr. Carmona, for pulmonary hypertension. He had initially advised Riociguat. However she did not tolerate it. She was then on Sildenafil BID. Now she is on a doublet. The plan is to add a 3rd agent. Hopefully that will relieve some of her symptoms, so she can function. She is still working [address] scan from April 28 revealed: 1. Stable 1 cm irregular shaped nodule right lower lobe subpleural reticular location. 2. Postsurgical changes, parenchymal thickening/scarring, air bronchogram with traction bronchiectasis left upper lobe and mid lung region are stable. 3. There is underlying severe emphysema. No evidence for recurrence of the lung cancer. I faxed a copy of the CAT scan of the chest, to Dr. Ocampo for his review. CT scan of the chest from 12/16/19: No significant interval change including a right lower lobe subpleural nodule. This is not significantly changed in size since the [address] scan and do not show significant activity on the previous PET CT scan. These characteristics favor a benign entity. No significant new or suspicious abnormality. Chest CT follow-up is recommended as per protocol. She feels some chest wall nodule on the right chest. She is eating well however she has lost a lot a weight. CT scan of the chest from 11/21 revealed: Severe underlying emphysema. Postoperative changes from left thoracotomy and pulmonary resection. Increasing solid component of a nodule in the right lower lobe posteriorly. This is concerning for new or metastatic malignancy. This may be amenable to CT- guided sampling. There is a juxtapleural mass-like abnormality posteromedial right lower lobe. This appears somewhat more solid. Measurements of the solid component as follows; 11/21/2020-1.4 x 1.4 cm 12/16/2019- 1.1 x 0.7 cm 04/28/2019-0.9 x 0.8 cm 05/20/2018-0.7 x 0.5 cm There is some traction bronchiectasis. MEDIASTINUM: There is mediastinal shift to the left. There is a lymph node in the anterior mediastinal fat 11/21/2020-0.8 cm 12/16/2019-0.8 cm 05/20/2018-0.8 cm FNA of right lower lobe lung nodule from 01/02 revealed: Positive for malignancy consistent with adenocarcinoma. I discussed the above results with her. She will need further staging workup. Will check PET scan and MRI of the brain. If the above confirm localized disease, will consider local therapy. One option is to proceed with surgical resection however, I am very concerned about her underlying lung function. She has severe emphysema and pulmonary hypertension. She has already had a lung resection on the other side. Once disease confined to the right lower lobe lung nodule is confirmed, will consider SBRT for the lung nodule. She had a PET scan which revealed: 1. Although mild in intensity, increased FDG activity associated with the posterior pleural-based right lower lobe pulmonary nodule is strongly suspicious for malignancy. Correlation with recent biopsy results is recommended. 2. Mild FDG activity associated with scarring and atelectasis in the left upper lobe most likely represents posttreatment changes. The absence of a discrete focus of more prominently increased FDG activity suggests this is not malignant in etiology. 3. A newly FDG avid focus in the rectosigmoid colon is suspicious for malignancy. While this may be physiological, it is a significant change from the 01/28/2019 PET/CT scan. Correlation with colonoscopy is recommended. 4. No additional abnormalities suspicious for other metastatic or malignant lesions are noted. 5. Cholelithiasis. 6. Vascular calcifications including coronary. PLAN: I will refer her for radiation therapy consultation, to Dr. Byrne, for consideration of SBRT. There is some uptake in the sigmoid colon. An appointment has been set up with GI Dr. Alejo for this . She will continue to follow up with Dr. Carmona, for her pulmonary issues. She will return here in 2 weeks for a followup visit. However, If she has symptoms of fatigue and headaches she will call. Her potassium was actually better today. She was advised to take extra dose of potassium. Uric acid was elevated. Referred to Rheumatology for consideration of gout in her left elbow. Thank you, CC: Dr. Laury Soto. Dr. Neftaly Carmona. Dr. Pete Byrne. (2) Erythrocytosis Status: Acute Assessment and plan: 2. POLYCYTHEMIA: Most likely related to her underlying pulmonary hypertension. In the meantime, her hemoglobin is within normal limit range. She had her phlebotomy, on February 24 2018. Her hemoglobin is normal now so she does not need further phlebotomy. PLAN: Will continue to monitor. - Time Spent With Patient Time Spent with Patient (in minutes): 30
[2021-01-30 08:29] LABS: Uric Acid 11.4 mg/dL (2.4-5.7)
--- NOTE | 2021-02-09 14:59 | MHC.HEMONC ---
Patient called, she stated she saw Radiation Oncology at [facility] and Dr. Dickson would like CT Brain to be completed prior to next appt pm 02-19-21. Dr. Vogt updated, order placed. Order given to Sheyla to place in mail truck driver she is aware it needs to be done before 02/19
[2021-02-16 13:49] VITALS: BP 99/57; PULSE 115; RESP 14; TEMP 36.2; O2SAT 94; BMI 26.6
--- NOTE | 2021-02-16 15:56 | PM.HEMONCPN ---
Medical Summary - Medical Summary Date of Service: 02/16/21 Chief complaint: Follow-up for: Recurrent lung cancer. Medical Summary: DIAGNOSES: 1. Recurrent non-small cell Carcinoma of the lung. 2. History of Polycythemia. 3. Hypokalemic periodic paralysis. CURRENT THERAPY: 1. Status post surgery followed by adjuvant chemotherapy with Carboplatin and Gemzar on September 07, 2006 to February 17, 2007. 2. Chest wall biopsy in June 2012 for a new left internal mammary adenopathy, revealed non-small cell carcinoma consistent with adenocarcinoma, EGFR and ALK negative. 3. Received radiation therapy, started September 27, completed end of October 2012. 4. Polycythemia, on intermittent phlebotomy. Her last phlebotomy was done on February 24 2018. Interval History Interval history: This is a pleasant 65-year-old lady here for a follow-up visit. She does not feel well. No chest pain. Her breathing is not that good. She has underlying pulmonary hypertension, and COPD. She is under the care of Dr. Carmona. She is on a bunch of inhalers and other meds. She has a headache at times which he attributes to the pulmonary hypertension medications. She is going for pulmonary function test tomorrow. No abdominal pain nausea vomiting heartburn indigestion. Bowels moving without any gross blood. She tells me that she has been eating but is consistently losing weight. She enjoys a good appetite, however despite that she has lost weight, 60+ pounds. Energy level is pretty good. Sometimes she feels a bit tired. Especially when she does not sleep too well. She is in good spirits. Rest of the review of systems is unremarkable. She had a PET scan which revealed: 1. Although mild in intensity, increased FDG activity associated with the posterior pleural-based right lower lobe pulmonary nodule is strongly suspicious for malignancy. Correlation with recent biopsy results is recommended. 2. Mild FDG activity associated with scarring and atelectasis in the left upper lobe most likely represents posttreatment changes. The absence of a discrete focus of more prominently increased FDG activity suggests this is not malignant in etiology. 3. A newly FDG avid focus in the rectosigmoid colon is suspicious for malignancy. While this may be physiological, it is a significant change from the 01/28/2019 PET/CT scan. Correlation with colonoscopy is recommended. 4. No additional abnormalities suspicious for other metastatic or malignant lesions are noted. 5. Cholelithiasis. 6. Vascular calcifications including coronary. Recent history: CT scan of the chest from 11/21 revealed: Severe underlying emphysema. Postoperative changes from left thoracotomy and pulmonary resection. Increasing solid component of a nodule in the right lower lobe posteriorly. This is concerning for new or metastatic malignancy. This may be amenable to CT-guided sampling. FNA of right lower lobe lung nodule from 01/02 revealed: Positive for malignancy consistent with adenocarcinoma. She has some lesions on her hands. They are painful. He has noticed some redness and swelling of her right elbow. Previous history: She has retired. She is enjoying it. She has noticed some lumps on her right chest wall. Review of Systems - Constitutional Reports system reviewed and no additional complaints, except as documented, Reports lack of energy, Reports weight loss - Eyes Reports system reviewed and no additional complaints, except as documented - ENT Reports system reviewed and no additional complaints, except as documented - Cardiovascular Reports system reviewed and no additional complaints, except as documented - Respiratory Reports no additional respiratory complaints - Gastrointestinal Reports system reviewed and no additional complaints, except as documented - Genitourinary Reports no additional female genitourinary complaints - Musculoskeletal Reports system reviewed and no additional complaints, except as documented - Integumentary/Breasts Skin/Breast: Reports no additional skin complaints - Neurologic Reports system reviewed and no additional complaints, except as documented, Reports weakness - Psychiatric Reports system reviewed and no additional complaints, except as documented - Endocrine Reports no additional endocrine complaints - Hematologic/Lymphatic Reports system reviewed and no additional complaints, except as documented - Allergic/Immunologic Reports system reviewed and no additional complaints, except as documented [facility] Medical History: Medical History (Last Reviewed 02/16/21 @ 13:52 by Joey Antoine) Calcinosis Chronic respiratory failure with hypoxia COPD (chronic obstructive pulmonary disease) Gout Hx of cancer of lung Lung cancer BERTIN (obstructive sleep apnea) Pulmonary hypertension Pulmonary nodule Raynaud's disease without gangrene Right heart failure SVT (supraventricular tachycardia) Functional capacity: independent ambulation Patient : No Family History: Family History (Last Reviewed 02/16/21 @ 13:52 by Joey Antoine) Father Lung cancer Mother CVD (cardiovascular disease) Surgical History: Surgical History (Last Reviewed 02/16/21 @ 13:52 by Joey Antoine) History of hip surgery History of lobectomy of lung History of thoracotomy Social History: Social History (Last Reviewed 02/16/21 @ 13:52 by Joey Antoine) Living Situation History: Housing: House Tobacco History: Patient Tobacco Use Status: Former Tobacco user e-Cigarette/Vaping Use: Never Used Occupation Assessmet: Current occupational status: retired Oncology Screenings - ECOG Performance Status ECOG Performance Status: 0 Home Medications and Allergies Home Medications Medication Instructions Recorded Confirmed Type albuterol sulfate 90 mcg/actuation 90 mcg INHALATION DAILY 02/17/20 02/16/21 History aerosol inhaler budesonide 0.5 mg/2 mL suspension 0.5 mg INHALATION BID 04/18/20 02/16/21 History for nebulization potassium chloride 20 mEq 60 meq PO DAILY 04/18/20 02/16/21 History tablet,extended release(part/cryst) furosemide 20 mg tablet 60 mg PO DAILY tab 09/25/20 02/16/21 History riociguat 2.5 mg tablet 2.5 mg PO TID 09/25/20 02/16/21 History macitentan 10 mg tablet 10 mg PO DAILY 02/01/21 02/16/21 History selexipag 600 mcg tablet 600 mcg PO .in the evening tab 02/01/21 02/16/21 History selexipag 800 mcg tablet 800 mcg PO DAILY 02/01/21 02/16/21 History Allergies Allergy/AdvReac Type Severity Reaction Status Date / Time cephalexin Allergy Severe rash Verified 02/12/21 00:49 Beta-Blockers AdvReac Intermediate SHORTNESS Verified 02/12/21 00:49 (Beta-Adrenergic Bloc OF BREATH Exam Vital signs: Vital Signs Temp 97.2 F 02/16/21 13:49 Pulse 115 H 02/16/21 13:49 Resp 14 02/16/21 13:49 BP 99/57 L 02/16/21 13:49 Pulse Ox 94 02/16/21 13:49 Intake & Output 02/15/21 02/16/21 02/16/21 18:59 06:59 18:59 Other: Weight 72.8 kg [place] Weight in Grams 33227 Weight 72.8 kg Body Mass Index 26.6 - Constitutional Present: no acute distress - Routine HEENT Exam Head: Present: normal inspection Eye: Present: normal appearance ENT: Present: mucous membranes moist - Routine Neck Exam Present: full ROM - Routine Respiratory Exam Present: CTAB - Routine Cardiovascular Exam Cardiovascular: Present: RRR, S1, S2 - Routine Abdominal Exam Present: soft, nontender - Routine Rectal Exam Patient deferred: digital exam - Routine Extremities Exam Present: nontender - Routine Back/Spine/Pelvis Exam Back/Spine: Present: full ROM - Routine Skin Exam Present: intact - Routine Neurological Exam Present: alert, oriented X3 - Routine Psychiatric Exam Present: normal affect Data - Labs CBC & Chem 7: 01/29/21 12:10 01/29/21 12:10 Labs: 11/03/20 13:09 CMP [Comprehensive Met. Panel] Routine Complete Blood Count Auto Diff Routine Laboratory Last Values WBC 7.9 X10*3/uL (4.8-10.8) 11/03/20 13:09 RBC 5.50 X10*6/uL (4.20-5.50) 11/03/20 13:09 Hgb 14.5 g/dl (12.0-16.0) 11/03/20 13:09 Hct 43.2 % (37-47) 11/03/20 13:09 MCV 78.5 fL (80-98) L 11/03/20 13:09 MCH 26.4 pg (27.0-33.0) L 11/03/20 13:09 MCHC 33.6 g/dl (31.0-35.0) 11/03/20 13:09 RDW 17.2 % (11.0-16.0) H 11/03/20 13:09 Plt Count 278 X10*3/uL (160-400) 11/03/20 13:09 MPV 9.4 fL (9.4-12.3) 11/03/20 13:09 Immature Gran % (Auto) 0.4 % (0.0-0.4) 11/03/20 13:09 Neut % (Auto) 66.1 % (45-73) 11/03/20 13:09 Lymph % (Auto) 18.6 % (20-40) L 11/03/20 13:09 [place] % (Auto) 10.3 % (2-11) 11/03/20 13:09 Eos % (Auto) 3.7 % (0-4) 11/03/20 13:09 Baso % (Auto) 0.9 % (0-2) 11/03/20 13:09 Lymph # (Auto) 1.5 X10*3/uL (1.2-4.9) 11/03/20 13:09 [place] # (Auto) 0.8 X10*3/uL (0.1-1.2) 11/03/20 13:09 Eos # (Auto) 0.3 X10*3/uL (0.0-0.4) 11/03/20 13:09 Baso # (Auto) 0.1 X10*3/uL (0.0-0.2) 11/03/20 13:09 Abs Immat Gran (auto) 0.03 X10*3/uL (0.00-0.03) 11/03/20 13:09 Absolute Neuts (auto) 5.2 X10*3/uL (2.0-8.3) 11/03/20 13:09 Absolute Nucleated RBC 0.000 X10*3/uL (0.0-0.012) 11/03/20 13:09 Nucleated RBC % (auto) 0.0 /100WBC (0.0-0.2) 11/03/20 13:09 Sodium 139 mmol/L (135-145) 11/03/20 13:09 Potassium 2.8 mmol/L (3.3-5.1) L 11/03/20 13:09 Chloride 102 mmol/L (96-108) 11/03/20 13:09 Carbon Dioxide 22 mmol/L (22-29) 11/03/20 13:09 Anion Gap 18 (12-20) 11/03/20 13:09 BUN 26 mg/dL (9-16) H 11/03/20 13:09 Creatinine 1.50 mg/dL (0.5-1.4) H 11/03/20 13:09 Estim Creat Clear Calc 38.3 11/03/20 13:09 Estimated GFR 35 11/03/20 13:09 Random Glucose 111 mg/dL (60-115) D 11/03/20 13:09 Calcium 9.5 mg/dL (8.4-10.2) 11/03/20 13:09 Total Bilirubin 0.9 mg/dL (0.0-1.0) 11/03/20 13:09 AST 16 U/L (5-31) 11/03/20 13:09 ALT 10 U/L (0-31) 11/03/20 13:09 Alkaline Phosphatase 77 U/L (39-117) 11/03/20 13:09 Total Protein 7.5 g/dL (6.5-8.0) 11/03/20 13:09 Albumin 4.2 g/dL (3.5-5.0) 11/03/20 13:09 Assessment and Plan Patient Active problem list reviewed?: Yes (1) Non-small cell lung cancer Status: Acute Assessment and plan: 65 year-old lady with history of: 1) Non-small cell lung Carcinoma. Initially diagnosed in spring. She had adjuvant chemotherapy with Carbo/Gemzar completed February 17, 2007. She then developed disease recurrence in the summer and received radiation therapy. She had a CT chest on September 15 which revealed: Emphysema. Stable postsurgical change to the left hemithorax following partial left upper lobe resection. No evidence of recurrent or metastatic disease seen. Recently, she had not been doing too well. She is still shortness of breath, especially on exertion. She has been under the care of the sewing pattern layout technician, Dr. Carmona, for pulmonary hypertension. He had initially advised Riociguat. However she did not tolerate it. She was then on Sildenafil BID. Now she is on a doublet. The plan is to add a 3rd agent. Hopefully that will relieve some of her symptoms, so she can function. She is still working [address] scan from April 28 revealed: 1. Stable 1 cm irregular shaped nodule right lower lobe subpleural reticular location. 2. Postsurgical changes, parenchymal thickening/scarring, air bronchogram with traction bronchiectasis left upper lobe and mid lung region are stable. 3. There is underlying severe emphysema. No evidence for recurrence of the lung cancer. I faxed a copy of the CAT scan of the chest, to Dr. Ocampo for his review. CT scan of the chest from 12/16/19: No significant interval change including a right lower lobe subpleural nodule. This is not significantly changed in size since the [address] scan and do not show significant activity on the previous PET CT scan. These characteristics favor a benign entity. No significant new or suspicious abnormality. Chest CT follow-up is recommended as per protocol. She feels some chest wall nodule on the right chest. She is eating well however she has lost a lot a weight. CT scan of the chest from 11/21 revealed: Severe underlying emphysema. Postoperative changes from left thoracotomy and pulmonary resection. Increasing solid component of a nodule in the right lower lobe posteriorly. This is concerning for new or metastatic malignancy. This may be amenable to CT-guided sampling. There is a juxtapleural mass-like abnormality posteromedial right lower lobe. This appears somewhat more solid. Measurements of the solid component as follows; 11/21/2020-1.4 x 1.4 cm 12/16/2019- 1.1 x 0.7 cm 04/28/2019-0.9 x 0.8 cm 05/20/2018-0.7 x 0.5 cm There is some traction bronchiectasis. MEDIASTINUM: There is mediastinal shift to the left. There is a lymph node in the anterior mediastinal fat 11/21/2020-0.8 cm 12/16/2019-0.8 cm 05/20/2018-0.8 cm FNA of right lower lobe lung nodule from 01/02 revealed: Positive for malignancy consistent with adenocarcinoma. I discussed the above results with her. She will need further staging workup. Will check PET scan and MRI of the brain. If the above confirm localized disease, will consider local therapy. One option is to proceed with surgical resection however, I am very concerned about her underlying lung function. She has severe emphysema and pulmonary hypertension. She has already had a lung resection on the other side. Once disease confined to the right lower lobe lung nodule is confirmed, will consider SBRT for the lung nodule. She had a PET scan which revealed: 1. Although mild in intensity, increased FDG activity associated with the posterior pleural-based right lower lobe pulmonary nodule is strongly suspicious for malignancy. Correlation with recent biopsy results is recommended. 2. Mild FDG activity associated with scarring and atelectasis in the left upper lobe most likely represents posttreatment changes. The absence of a discrete focus of more prominently increased FDG activity suggests this is not malignant in etiology. 3. A newly FDG avid focus in the rectosigmoid colon is suspicious for malignancy. While this may be physiological, it is a significant change from the 01/28/2019 PET/CT scan. Correlation with colonoscopy is recommended. 4. No additional abnormalities suspicious for other metastatic or malignant lesions are noted. 5. Cholelithiasis. 6. Vascular calcifications including coronary. There was some uptake noted in the sigmoid colon. She underwent flexible sigmoidoscopy by GI Dr. Alejo. This was done on 02/15 and revealed: FINDINGS: The visualized colonic mucosa was normal. The colon was somewhat tortuous. There was moderate diverticulosis. No mass lesion was identified. There was some stool, which limited the sensitivity examination for detection of small polyps. This was washed and suctioned. Retroflexed examination showed small internal hemorrhoids. IMPRESSION: Negative sigmoidoscopy. I referred her for radiation therapy consultation, to Dr. Byrne, for consideration of SBRT. PLAN: She declined MRI of the head. The plan is to proceed with a CT scan of the brain for staging. She is unable to get contrast because of her kidney function. This will be done later today. She has a tele visit with Dr. Byrne on Friday. He will plan the SBRT thereafter. She will continue to follow up with Dr. Carmona, for her pulmonary issues. She will return here in 1 month for a followup visit. However, If she has symptoms of fatigue and headaches she will call. Uric acid was elevated, so she was referred to Rheumatology for consideration of gout in her left elbow. Thank you, CC: Dr. Laury Soto. Dr. Neftaly Carmona. Dr. Pete Byrne. (2) Erythrocytosis Status: Acute Assessment and plan: 2. POLYCYTHEMIA: Most likely related to her underlying pulmonary hypertension. In the meantime, her hemoglobin is within normal limit range. She had her phlebotomy, on February 24 2018. Her hemoglobin is normal now so she does not need further phlebotomy. PLAN: Will continue to monitor. - Time Spent With Patient Time Spent with Patient (in minutes): 30
--- NOTE | 2021-02-19 08:13 | MHC.HEMONC ---
pt CT of head from 02/16 faxed to [facility] Dr Byrne at [facility].
[2021-03-26 15:10] VITALS: BP 111/59; PULSE 97; RESP 16; TEMP 36.6; O2SAT 98; BMI 26.7
--- NOTE | 2021-03-26 15:15 | PM.HEMONCPN ---
Medical Summary - Medical Summary Date of Service: 03/26/21 Chief complaint: Follow-up for: Recurrent non-small cell lung carcinoma. Medical Summary: DIAGNOSES: 1. Recurrent non-small cell Carcinoma of the lung. 2. History of Polycythemia. 3. Hypokalemic periodic paralysis. CURRENT THERAPY: 1. Status post surgery followed by adjuvant chemotherapy with Carboplatin and Gemzar on September 07, 2006 to February 17, 2007. 2. Chest wall biopsy in June 2012 for a new left internal mammary adenopathy, revealed non-small cell carcinoma consistent with adenocarcinoma, EGFR and ALK negative. 3. Received radiation therapy, started September 27, completed end of October 2012. 4. Polycythemia, on intermittent phlebotomy. Her last phlebotomy was done on February 24 2018. Interval History Interval history: This is a pleasant 65-year-old lady here for a follow-up visit. She is feeling relatively well. She has been undergoing SBRT. She started last Friday. She gets it on Friday and Fridays. She had a dose today and will finish on this coming Friday. She noted some pain in the back and ribs area, over the weekend. She was told this is related to the inflammation from radiation. She took some Motrin. It is feeling better today. She was seen by Dr. Carmona who gave her a course of steroids. No chest pain, today. Her breathing is not that good. She has underlying pulmonary hypertension, and COPD. She is under the care of Dr. Carmona. She is on a bunch of inhalers and other meds. She has headaches, at times which he attributes to the pulmonary hypertension medications. She had pulmonary function tests. No abdominal pain nausea vomiting heartburn indigestion. Bowels moving without any gross blood. She tells me that she has been eating okay, but is consistently losing weight. She enjoys a good appetite, however despite that she has lost weight, 60+ pounds. Energy level is pretty good. Sometimes she feels a bit tired. She has history of gout. She had pain and swelling of her elbow that had to be drained by [facility]. She is in good spirits. Rest of the review of systems is unremarkable. Previous history: She had a PET scan which revealed: 1. Although mild in intensity, increased FDG activity associated with the posterior pleural-based right lower lobe pulmonary nodule is strongly suspicious for malignancy. Correlation with recent biopsy results is recommended. 2. Mild FDG activity associated with scarring and atelectasis in the left upper lobe most likely represents posttreatment changes. The absence of a discrete focus of more prominently increased FDG activity suggests this is not malignant in etiology. 3. A newly FDG avid focus in the rectosigmoid colon is suspicious for malignancy. While this may be physiological, it is a significant change from the 01/28/2019 PET/CT scan. Correlation with colonoscopy is recommended. 4. No additional abnormalities suspicious for other metastatic or malignant lesions are noted. 5. Cholelithiasis. 6. Vascular calcifications including coronary. Recent history: CT scan of the chest from 11/21 revealed: Severe underlying emphysema. Postoperative changes from left thoracotomy and pulmonary resection. Increasing solid component of a nodule in the right lower lobe posteriorly. This is concerning for new or metastatic malignancy. This may be amenable to CT-guided sampling. FNA of right lower lobe lung nodule from 01/02 revealed: Positive for malignancy consistent with adenocarcinoma. She has some lesions on her hands. They are painful. He has noticed some redness and swelling of her right elbow. Previous history: She has retired. She is enjoying it. She has noticed some lumps on her right chest wall. Review of Systems - Constitutional Reports no additional constitutional complaints - Eyes Reports no additional eye complaints - ENT Reports no additional ear, nose, mouth, and throat complaints - Cardiovascular Reports no additional cardiovascular complaints - Respiratory Reports no additional respiratory complaints - Gastrointestinal Reports no additional gastrointestinal complaints - Genitourinary Reports no additional female genitourinary complaints - Musculoskeletal Reports no additional musculoskeletal complaints - Integumentary/Breasts Skin/Breast: Reports no additional skin complaints - Neurologic Reports no additional neurologic complaints, Reports weakness - Psychiatric Reports no additional psychiatric complaints - Endocrine Reports no additional endocrine complaints - Hematologic/Lymphatic Reports no additional hematologic/lymphatic complaints - Allergic/Immunologic Reports no additional allergic/immunologic complaints [facility] Medical History: Medical History (Last Reviewed 03/26/21 @ 15:13 by Juliet Jc) Calcinosis Chronic respiratory failure with hypoxia COPD (chronic obstructive pulmonary disease) Gout Hx of cancer of lung Lung cancer BERTIN (obstructive sleep apnea) Pulmonary hypertension Pulmonary nodule Raynaud's disease without gangrene Right heart failure SVT (supraventricular tachycardia) Functional capacity: independent ambulation Patient : No Family History: Family History (Last Reviewed 03/26/21 @ 15:13 by Juliet Jc) Father Lung cancer Mother CVD (cardiovascular disease) Surgical History: Surgical History (Last Reviewed 03/26/21 @ 15:13 by Juliet Jc) History of hip surgery History of lobectomy of lung History of thoracotomy Social History: Social History (Last Updated 03/26/21 @ 15:14 by Juliet Jc) Living Situation History: Housing: House Alcohol History: Alcohol intake: former Alcohol History Details: Alcohol intake frequency: does not drink Tobacco History: Patient Tobacco Use Status: Former Tobacco user Tobacco use type: Cigarette Smoke Quit Date: 2004 e-Cigarette/Vaping Use: Never Used Substance Use History: Use of substances other than those prescribed or required for medical reasons: No Nutrition Assessment: Patient : No Occupation Assessmet: Current occupational status: retired Oncology Screenings - ECOG Performance Status ECOG Performance Status: 0 Home Medications and Allergies Home Medications Medication Instructions Recorded Confirmed Type albuterol sulfate 90 mcg/actuation 90 mcg INHALATION DAILY 02/17/20 03/26/21 History aerosol inhaler budesonide 0.5 mg/2 mL suspension 0.5 mg INHALATION BID 04/18/20 03/26/21 History for nebulization potassium chloride 20 mEq 60 meq PO DAILY 04/18/20 03/26/21 History tablet,extended release(part/cryst) furosemide 20 mg tablet 60 mg PO DAILY tab 09/25/20 03/26/21 History riociguat 2.5 mg tablet 2.5 mg PO TID 09/25/20 03/26/21 History macitentan 10 mg tablet 10 mg PO DAILY 02/01/21 03/26/21 History selexipag 600 mcg tablet 600 mcg PO .in the evening tab 02/01/21 03/26/21 History selexipag 800 mcg tablet 800 mcg PO DAILY 02/01/21 03/26/21 History lorazepam 1 mg tablet 1 mg PO DAILY PRN 03/26/21 03/26/21 History Allergies Allergy/AdvReac Type Severity Reaction Status Date / Time cephalexin Allergy Severe rash Verified 03/26/21 15:14 Beta-Blockers AdvReac Intermediate SHORTNESS Verified 03/26/21 15:14 (Beta-Adrenergic Bloc OF BREATH Exam Vital signs: Vital Signs Temp 97.8 F 03/26/21 15:10 Pulse 97 03/26/21 15:10 Resp 16 03/26/21 15:10 BP 111/59 L 03/26/21 15:10 Pulse Ox 98 03/26/21 15:10 Intake & Output 03/25/21 03/26/21 03/26/21 18:59 06:59 18:59 Other: Weight 73 kg Weight in Grams [id number] Weight 73 kg BMI result Body Mass Index 26.7 - Constitutional Present: no acute distress - Routine HEENT Exam Head: Present: normal inspection Eye: Present: normal appearance ENT: Present: mucous membranes moist - Routine Neck Exam Present: full ROM - Routine Respiratory Exam Present: CTAB - Routine Cardiovascular Exam Cardiovascular: Present: RRR, S1, S2 - Routine Abdominal Exam Present: soft, nontender - Routine Rectal Exam Patient deferred: digital exam - Routine Extremities Exam Present: nontender - Routine Back/Spine/Pelvis Exam Back/Spine: Present: full ROM - Routine Skin Exam Present: intact - Routine Neurological Exam Present: alert, oriented X3 - Routine Psychiatric Exam Present: normal affect Data - Labs CBC & Chem 7: 03/26/21 15:07 03/26/21 15:07 Assessment and Plan Patient Active problem list reviewed?: Yes (1) Non-small cell lung cancer Status: Acute Assessment and plan: 65 year-old lady with history of: 1) Non-small cell lung Carcinoma. Initially diagnosed in spring. She had adjuvant chemotherapy with Carbo/Gemzar completed February 17, 2007. She then developed disease recurrence in the summer and received radiation therapy. She had a CT chest on September 15 which revealed: Emphysema. Stable postsurgical change to the left hemithorax following partial left upper lobe resection. No evidence of recurrent or metastatic disease seen. Recently, she had not been doing too well. She is still shortness of breath, especially on exertion. She has been under the care of the veneer manufacturer, Dr. Carmona, for pulmonary hypertension. He had initially advised Riociguat. However she did not tolerate it. She was then on Sildenafil BID. Now she is on a doublet. The plan is to add a 3rd agent. Hopefully that will relieve some of her symptoms, so she can function. She is still working [address] scan from April 28 revealed: 1. Stable 1 cm irregular shaped nodule right lower lobe subpleural reticular location. 2. Postsurgical changes, parenchymal thickening/scarring, air bronchogram with traction bronchiectasis left upper lobe and mid lung region are stable. 3. There is underlying severe emphysema. No evidence for recurrence of the lung cancer. I faxed a copy of the CAT scan of the chest, to Dr. Ocampo for his review. CT scan of the chest from 12/16/19: No significant interval change including a right lower lobe subpleural nodule. This is not significantly changed in size since the [address] scan and do not show significant activity on the previous PET CT scan. These characteristics favor a benign entity. No significant new or suspicious abnormality. Chest CT follow-up is recommended as per protocol. She feels some chest wall nodule on the right chest. She is eating well however she has lost a lot a weight. CT scan of the chest from 11/21 revealed: Severe underlying emphysema. Postoperative changes from left thoracotomy and pulmonary resection. Increasing solid component of a nodule in the right lower lobe posteriorly. This is concerning for new or metastatic malignancy. This may be amenable to CT-guided sampling. There is a juxtapleural mass-like abnormality posteromedial right lower lobe. This appears somewhat more solid. Measurements of the solid component as follows; 11/21/2020-1.4 x 1.4 cm 12/16/2019- 1.1 x 0.7 cm 04/28/2019-0.9 x 0.8 cm 05/20/2018-0.7 x 0.5 cm There is some traction bronchiectasis. MEDIASTINUM: There is mediastinal shift to the left. There is a lymph node in the anterior mediastinal fat 11/21/2020-0.8 cm 12/16/2019-0.8 cm 05/20/2018-0.8 cm FNA of right lower lobe lung nodule from 01/02 revealed: Positive for malignancy consistent with adenocarcinoma. I discussed the above results with her. She will need further staging workup. Will check PET scan and MRI of the brain. If the above confirm localized disease, will consider local therapy. One option is to proceed with surgical resection however, I am very concerned about her underlying lung function. She has severe emphysema and pulmonary hypertension. She has already had a lung resection on the other side. Once disease confined to the right lower lobe lung nodule is confirmed, will consider SBRT for the lung nodule. She had a PET scan which revealed: 1. Although mild in intensity, increased FDG activity associated with the posterior pleural-based right lower lobe pulmonary nodule is strongly suspicious for malignancy. Correlation with recent biopsy results is recommended. 2. Mild FDG activity associated with scarring and atelectasis in the left upper lobe most likely represents posttreatment changes. The absence of a discrete focus of more prominently increased FDG activity suggests this is not malignant in etiology. 3. A newly FDG avid focus in the rectosigmoid colon is suspicious for malignancy. While this may be physiological, it is a significant change from the 01/28/2019 PET/CT scan. Correlation with colonoscopy is recommended. 4. No additional abnormalities suspicious for other metastatic or malignant lesions are noted. 5. Cholelithiasis. 6. Vascular calcifications including coronary. There was some uptake noted in the sigmoid colon. She underwent flexible sigmoidoscopy by GI Dr. Alejo. This was done on 02/15 and revealed: FINDINGS: The visualized colonic mucosa was normal. The colon was somewhat tortuous. There was moderate diverticulosis. No mass lesion was identified. There was some stool, which limited the sensitivity examination for detection of small polyps. This was washed and suctioned. Retroflexed examination showed small internal hemorrhoids. IMPRESSION: Negative sigmoidoscopy. I referred her for radiation therapy consultation, to Dr. Byrne, for consideration of SBRT. She had a CT scan of the brain for staging. This was negative. She has started on treatment. She will be done this coming Friday. PLAN: She will have reimaging a PET scan in 3 months time, to gauge her response to treatment. She will continue to follow up with Dr. Carmona, for her pulmonary issues. She will return here in 3 months for a followup visit. However, If she has symptoms of fatigue and headaches she will call. She was referred to Rheumatology for further management of her gout. Thank you, CC: Dr. Laury Soto. Dr. Neftaly Carmona. Dr. Pete Byrne. (2) Erythrocytosis Status: Acute Assessment and plan: 2. POLYCYTHEMIA: Most likely related to her underlying pulmonary hypertension. In the meantime, her hemoglobin is within normal limit range. She had her phlebotomy, on February 24 2018. Her hemoglobin is normal now so she does not need further phlebotomy. PLAN: Will continue to monitor. - Time Spent With Patient Time Spent with Patient (in minutes): 30
[2021-03-26 15:22] LABS: MANUAL DIFF FLAG NO
[2021-03-26 15:25] LABS: Basophils Absolute Auto 0.1 X10*3/uL (0.0-0.2); Basophils Percent Auto 0.9 % (0-2); Eosinophils Absolute Auto 0.3 X10*3/uL (0.0-0.4); Eosinophils Percent Auto 3.9 % (0-4); Hematocrit 42.9 % (37.0-47.0); Hemoglobin 14.5 g/dl (12.0-16.0); Imm Gran Abs Auto 0.03 X10*3/uL (0.00-0.03); Imm Gran Pct Auto 0.4 % (0.0-0.4); Lymphocytes Absolute Auto 1.1 X10*3/uL (1.2-4.9); Lymphocytes Percent Auto 15.8 % (20-40); Mean Corpuscular HGB Conc 33.8 g/dl (31.0-35.0); Mean Corpuscular Hemoglobin 27.2 pg (27.0-33.0); Mean Corpuscular Volume 80.5 fL (80.0-98.0); Mean Platelet Volume 8.7 fL (9.4-12.3); Monocytes Absolute Auto 0.6 X10*3/uL (0.1-1.2); Monocytes Percent Auto 8.3 % (2-11); Neutrophils Absolute Auto 4.7 x10*3/uL (2.0-8.3); Neutrophils Percent Auto 70.7 % (45-73); Platelet Count 277 X10*3/uL (160-400); Red Blood Count 5.33 X10*6/uL (4.20-5.50); Red Cell Distribution Width 16.6 % (11.0-16.0); White Blood Count 6.7 X10*3/uL (4.8-10.8)
[2021-03-26 15:45] LABS: Alanine Aminotransferase 13 U/L (0-31); Albumin Level 4.1 g/dL (3.5-5.0); Alkaline Phosphatase 76 U/L (39-117); Anion Gap 14 (12-20); Aspartate Amino Transferase 18 U/L (5-31); Bilirubin Total 0.7 mg/dL (0.0-1.0); Blood Urea Nitrogen 27 mg/dL (9-16); Calcium 9.9 mg/dL (8.4-10.2); Carbon Dioxide 27 mmol/L (22-29); Chloride 102 mmol/L (96-108); Creatinine Clr Calc Pharmacy 41.1; Estimated Glomerular Filt Rate 38; Glucose Random 99 mg/dL (60-115); Potassium 2.9 mmol/L (3.3-5.1); Sodium 140 mmol/L (135-145); Total Protein 7.4 g/dL (6.5-8.0)
[2021-05-30 11:37] LABS: MANUAL DIFF FLAG NO
[2021-05-30 11:48] LABS: Basophils Absolute Auto 0.1 X10*3/uL (0.0-0.2); Basophils Percent Auto 0.8 % (0-2); Eosinophils Absolute Auto 0.3 X10*3/uL (0.0-0.4); Eosinophils Percent Auto 3.6 % (0-4); Hemoglobin 15.1 g/dl (12.0-16.0); Imm Gran Abs Auto 0.03 X10*3/uL (0.00-0.03); Imm Gran Pct Auto 0.4 % (0.0-0.4); Lymphocytes Percent Auto 12.9 % (20-40); Mean Corpuscular HGB Conc 32.8 g/dl (31.0-35.0); Mean Corpuscular Hemoglobin 27.1 pg (27.0-33.0); Mean Corpuscular Volume 82.6 fL (80.0-98.0); Mean Platelet Volume 8.5 fL (9.4-12.3); Monocytes Absolute Auto 0.7 X10*3/uL (0.1-1.2); Monocytes Percent Auto 9.8 % (2-11); Neutrophils Absolute Auto 5.4 x10*3/uL (2.0-8.3); Neutrophils Percent Auto 72.5 % (45-73); Platelet Count 247 X10*3/uL (160-400); Red Blood Count 5.57 X10*6/uL (4.20-5.50); White Blood Count 7.5 X10*3/uL (4.8-10.8)
[2021-05-30 12:11] LABS: Alanine Aminotransferase 15 U/L (0-31); Albumin Level 4.3 g/dL (3.5-5.0); Alkaline Phosphatase 80 U/L (39-117); Anion Gap 13 (12-20); Aspartate Amino Transferase 17 U/L (5-31); Bilirubin Total 0.9 mg/dL (0.0-1.0); Blood Urea Nitrogen 27 mg/dL (9-16); Calcium 9.6 mg/dL (8.4-10.2); Carbon Dioxide 29 mmol/L (22-29); Chloride 104 mmol/L (96-108); Creatinine Clr Calc Pharmacy 40.3; Estimated Glomerular Filt Rate 38; Glucose Random 91 mg/dL (60-115); Sodium 143 mmol/L (135-145); Total Protein 7.5 g/dL (6.5-8.0)
[2021-06-25 15:03] LABS: MANUAL DIFF FLAG NO
[2021-06-25 15:22] VITALS: BP 108/60; PULSE 98; RESP 16; TEMP 36.2; O2SAT 92; BMI 27.0
[2021-06-25 15:22] LABS: Basophils Absolute Auto 0.1 X10*3/uL (0.0-0.2); Eosinophils Absolute Auto 0.5 X10*3/uL (0.0-0.4); Eosinophils Percent Auto 5.5 % (0-4); Hematocrit 44.1 % (37.0-47.0); Hemoglobin 14.5 g/dl (12.0-16.0); Imm Gran Abs Auto 0.03 X10*3/uL (0.00-0.03); Imm Gran Pct Auto 0.3 % (0.0-0.4); Lymphocytes Absolute Auto 1.1 X10*3/uL (1.2-4.9); Lymphocytes Percent Auto 12.7 % (20-40); Mean Corpuscular HGB Conc 32.9 g/dl (31.0-35.0); Mean Corpuscular Hemoglobin 27.1 pg (27.0-33.0); Mean Corpuscular Volume 82.4 fL (80.0-98.0); Mean Platelet Volume 8.5 fL (9.4-12.3); Monocytes Absolute Auto 0.9 X10*3/uL (0.1-1.2); Monocytes Percent Auto 10.1 % (2-11); Neutrophils Absolute Auto 6.1 x10*3/uL (2.0-8.3); Neutrophils Percent Auto 70.4 % (45-73); Platelet Count 272 X10*3/uL (160-400); Red Blood Count 5.35 X10*6/uL (4.20-5.50); Red Cell Distribution Width 17.5 % (11.0-16.0); White Blood Count 8.7 X10*3/uL (4.8-10.8)
--- NOTE | 2021-06-25 15:24 | P.PNHO_ITS ---
Medical Summary - Medical Summary Date of Service: 06/25/21 Chief complaint: Follow-up for: Non-small cell lung carcinoma. Medical Summary: DIAGNOSES: 1. Recurrent non-small cell Carcinoma of the lung. 2. History of Polycythemia. 3. Hypokalemic periodic paralysis. CURRENT THERAPY: 1. Status post surgery followed by adjuvant chemotherapy with Carboplatin and G emzar on September 07, 2006 to February 17, 2007. 2. Chest wall biopsy in June 2012 for a new left internal mammary adenopathy, revealed non-small cell carcinoma consistent with adenocarcinoma, EGFR and ALK negative. 3. Received radiation therapy, started September 27, completed end of October 2012. 4. Polycythemia, on intermittent phlebotomy. Her last phlebotomy was done on February 24 2018. 5. Status post SBRT to the lung nodule. Interval History Interval history: This is a pleasant 65-year-old lady here for a follow-up visit. She is not feeling too well. Lately she has felt rather anxious. This is been going on for few weeks. She gets more short of breath that way. She is not taking anything for it. She denies any cough no sputum. No chest pain. She denies any headache no dizziness. No abdominal pain nausea vomiting heartburn indigestion. Bowels moving without any gross blood. She tells me that she has been eating okay, her weight is stable. Energy level is pretty good. Sometimes she feels a bit tired. She has history of gout. She had pain and swelling of her elbow that had to be drained by [facility]. She is in good spirits. Rest of the review of systems is unremarkable. Previous history: She had a PET scan which revealed: 1. Although mild in intensity, increased FDG activity associated with the posterior pleural-based right lower lobe pulmonary nodule is strongly suspicious for malignancy. Correlation with recent biopsy results is recommended. 2. Mild FDG activity associated with scarring and atelectasis in the left upper lobe most likely represents posttreatment changes. The absence of a discrete focus of more prominently increased FDG activity suggests this is not malignant in etiology. 3. A newly FDG avid focus in the rectosigmoid colon is suspicious for malignancy. While this may be physiological, it is a significant change from the 01/28/2019 PET/CT scan. Correlation with colonoscopy is recommended. 4. No additional abnormalities suspicious for other metastatic or malignant lesions are noted. 5. Cholelithiasis. 6. Vascular calcifications including coronary. She has completed SBRT. She had some back pain. he was seen by Dr. Carmona who gave her a course of steroids. She has underlying pulmonary hypertension, and COPD. She is under the care of Dr. Carmona. She is on a bunch of inhalers and other meds. She has headaches, at times which he attributes to the pulmonary hypertension medications. She had pulmonary function tests. Recent history: CT scan of the chest from 11/21 revealed: Severe underlying emphysema. Postoperative changes from left thoracotomy and pulmonary resection. Increasing solid component of a nodule in the right lower lobe posteriorly. This is concerning for new or metastatic malignancy. This may be amenable to CT- guided sampling. FNA of right lower lobe lung nodule from 01/02 revealed: Positive for malignancy consistent with adenocarcinoma. She has some lesions on her hands. They are painful. He has noticed some redness and swelling of her right elbow. Previous history: She has retired. She is enjoying it. She has noticed some lumps on her right chest wall. Review of Systems - Constitutional Reports system reviewed and no additional complaints, except as documented, Reports lack of energy, Denies weight loss - Eyes Reports system reviewed and no additional complaints, except as documented - ENT Reports system reviewed and no additional complaints, except as documented - Cardiovascular Reports system reviewed and no additional complaints, except as documented - Respiratory Reports no additional respiratory complaints - Gastrointestinal Reports system reviewed and no additional complaints, except as documented - Genitourinary Reports no additional female genitourinary complaints - Musculoskeletal Reports system reviewed and no additional complaints, except as documented - Integumentary/Breasts Skin/Breast: Reports no additional skin complaints - Neurologic Reports system reviewed and no additional complaints, except as documented, Reports weakness - Psychiatric Reports system reviewed and no additional complaints, except as documented, Reports anxiety - Endocrine Reports no additional endocrine complaints - Hematologic/Lymphatic Reports system reviewed and no additional complaints, except as documented - Allergic/Immunologic Reports system reviewed and no additional complaints, except as documented PMFSH Medical History: Medical History (Last Reviewed 06/25/21 @ 15:24 by Emilee Arroyo CMA) Calcinosis Chronic respiratory failure with hypoxia COPD (chronic obstructive pulmonary disease) Gout Hx of cancer of lung Lung cancer BERTIN (obstructive sleep apnea) Pulmonary hypertension Pulmonary nodule Raynaud's disease without gangrene Right heart failure SVT (supraventricular tachycardia) Functional capacity: independent ambulation Patient : No Family History: Family History (Last Reviewed 06/25/21 @ 15:24 by Emilee Arroyo CMA) Father Lung cancer Mother CVD (cardiovascular disease) Surgical History: Surgical History (Last Reviewed 06/25/21 @ 15:24 by Emilee Arroyo CMA) History of hip surgery History of lobectomy of lung History of thoracotomy Social History: Social History (Last Updated 06/25/21 @ 15:24 by Emilee Arroyo CMA) Living Situation History: Household Members: Spouse Housing: House Are you a primary career technical supervisor to a significant other at home: No Do you presently have visiting nurse or other home services: No Alcohol History Details: 1. How often do you have a drink containing alcohol?: a. Never Tobacco History: Patient Tobacco Use Status: Former Tobacco user Tobacco use type: Cigarette Smoke Quit Date: 2004 e-Cigarette/Vaping Use: Never Used Substance Use History: Use of substances other than those prescribed or required for medical reasons : No Nutrition Assessment: Patient : No Occupation Assessmet: service: No Current occupational status: retired Oncology Screenings - ECOG Performance Status ECOG Performance Status: 0 Home Medications and Allergies Home Medications Medication Instructions Recorded Confirmed Type albuterol sulfate 90 mcg/actuation 90 mcg INHALATION DAILY 02/17/20 06/25/21 History aerosol inhaler potassium chloride 20 mEq 60 meq PO DAILY 04/18/20 06/25/21 History tablet,extended release(part/cryst) furosemide 20 mg tablet 60 mg PO DAILY tab 09/25/20 06/25/21 History riociguat 2.5 mg tablet 2.5 mg PO TID 09/25/20 06/25/21 History macitentan 10 mg tablet 10 mg PO DAILY 02/01/21 06/25/21 History azithromycin 250 mg tablet 250 mg PO 3XW tab 05/01/21 06/25/21 History selexipag 600 mcg tablet 600 mcg PO BID tab 06/18/21 06/25/21 History Allergies Allergy/AdvReac Type Severity Reaction Status Date / Time cephalexin Allergy Severe rash Verified 06/25/21 15:24 Beta-Blockers AdvReac Intermediate SHORTNESS Verified 06/25/21 15:24 (Beta-Adrenergic Bloc OF BREATH Exam Vital signs: Vital Signs Temp 97.1 F 06/25/21 15:22 Pulse 98 06/25/21 15:22 Resp 16 06/25/21 15:22 BP 108/60 06/25/21 15:22 Pulse Ox 92 06/25/21 15:22 Intake & Output 06/24/21 06/25/21 06/25/21 18:59 06:59 18:59 Other: Weight 73.7 kg [place] Weight in Grams [id number] Weight 73.7 kg BMI result Body Mass Index 27.0 - Constitutional Present: no acute distress - Routine HEENT Exam Head: Present: normal inspection Eye: Present: normal appearance ENT: Present: mucous membranes moist - Routine Neck Exam Present: full ROM - Routine Respiratory Exam Present: CTAB - Routine Cardiovascular Exam Cardiovascular: Present: RRR, S1, S2 - Routine Abdominal Exam Present: soft, nontender - Routine Rectal Exam Patient deferred: digital exam - Routine Extremities Exam Present: nontender - Routine Back/Spine/Pelvis Exam Back/Spine: Present: full ROM - Routine Skin Exam Present: intact - Routine Neurological Exam Present: alert, oriented X3 - Routine Psychiatric Exam Present: normal affect Data - Labs CBC & Chem 7: 06/25/21 15:01 06/25/21 15:01 Assessment and Plan Patient Active problem list reviewed?: Yes (1) Non-small cell lung cancer Status: Acute Assessment and plan: 65 year-old lady with history of: 1) Non-small cell lung Carcinoma. Initially diagnosed in spring. She had adjuvant chemotherapy with Carbo/Gemzar completed February 17, 2007. She then developed disease recurrence in the summer and received radiation therapy. She had a CT chest on September 15 which revealed: Emphysema. Stable postsurgical change to the left hemithorax following partial left upper lobe resection. No evidence of recurrent or metastatic disease seen. Recently, she had not been doing too well. She is still shortness of breath, especially on exertion. She has been under the care of the product development specialist, Dr. Carmona, for pulmonary hypertension. He had initially advised Riociguat. However she did not tolerate it. She was then on Sildenafil BID. Now she is on a doublet. The plan is to add a 3rd agent. Hopefully that will relieve some of her symptoms, so she can function. She is still working [address] scan from April 28 revealed: 1. Stable 1 cm irregular shaped nodule right lower lobe subpleural reticular location. 2. Postsurgical changes, parenchymal thickening/scarring, air bronchogram with traction bronchiectasis left upper lobe and mid lung region are stable. 3. There is underlying severe emphysema. No evidence for recurrence of the lung cancer. I faxed a copy of the CAT scan of the chest, to Dr. Ocampo for his review. CT scan of the chest from 12/16/19: No significant interval change including a right lower lobe subpleural nodule. This is not significantly changed in size since the [address] scan and do not show significant activity on the previous PET CT scan. These characteristics favor a benign entity. No significant new or suspicious abnormality. Chest CT follow-up is recommended as per protocol. She feels some chest wall nodule on the right chest. She is eating well however she has lost a lot a weight. CT scan of the chest from 11/21 revealed: Severe underlying emphysema. Postoperative changes from left thoracotomy and pulmonary resection. Increasing solid component of a nodule in the right lower lobe posteriorly. This is concerning for new or metastatic malignancy. This may be amenable to CT- guided sampling. There is a juxtapleural mass-like abnormality posteromedial right lower lobe. This appears somewhat more solid. Measurements of the solid component as follows; 11/21/2020-1.4 x 1.4 cm 12/16/2019- 1.1 x 0.7 cm 04/28/2019-0.9 x 0.8 cm 05/20/2018-0.7 x 0.5 cm There is some traction bronchiectasis. MEDIASTINUM: There is mediastinal shift to the left. There is a lymph node in the anterior mediastinal fat 11/21/2020-0.8 cm 12/16/2019-0.8 cm 05/20/2018-0.8 cm FNA of right lower lobe lung nodule from 01/02 revealed: Positive for malignancy consistent with adenocarcinoma. I discussed the above results with her. She will need further staging workup. Will check PET scan and MRI of the brain. If the above confirm localized disease, will consider local therapy. One option is to proceed with surgical resection however, I am very concerned about her underlying lung function. She has severe emphysema and pulmonary hypertension. She has already had a lung resection on the other side. Once disease confined to the right lower lobe lung nodule is confirmed, will consider SBRT for the lung nodule. She had a PET scan which revealed: 1. Although mild in intensity, increased FDG activity associated with the posterior pleural-based right lower lobe pulmonary nodule is strongly suspicious for malignancy. Correlation with recent biopsy results is recommended. 2. Mild FDG activity associated with scarring and atelectasis in the left upper lobe most likely represents posttreatment changes. The absence of a discrete focus of more prominently increased FDG activity suggests this is not malignant in etiology. 3. A newly FDG avid focus in the rectosigmoid colon is suspicious for malignancy. While this may be physiological, it is a significant change from the 01/28/2019 PET/CT scan. Correlation with colonoscopy is recommended. 4. No additional abnormalities suspicious for other metastatic or malignant lesions are noted. 5. Cholelithiasis. 6. Vascular calcifications including coronary. There was some uptake noted in the sigmoid colon. She underwent flexible sigmoidoscopy by GI Dr. Alejo. This was done on 02/15 and revealed: FINDINGS: The visualized colonic mucosa was normal. The colon was somewhat tortuous. There was moderate diverticulosis. No mass lesion was identified. There was some stool, which limited the sensitivity examination for detection of small polyps. This was washed and suctioned. Retroflexed examination showed small internal hemorrhoids. IMPRESSION: Negative sigmoidoscopy. I referred her for radiation therapy consultation, to Dr. Byrne, for consideration of SBRT. She had a CT scan of the brain for staging. This was negative. She has completed the SBRT. She had a CT scan of the chest on 06/01: Postsurgical changes left lower lobe and lingula. No recurrent mass or nodule seen. There is a right lower lobe subpleural-based nodule measuring 1.0 cm. It measured approximately 1.3 cm on the PET/CT exam and mildly hypermetabolic. No additional pulmonary nodule seen on present exam. There is diffuse centrilobular emphysema. No abnormal mediastinal or axillary lymphadenopathy seen. Mild deformity of left lower lateral chest wall from previous intervention. She is concerned about residual disease. I reassured her that since the nodule is shrinking that is a good sign. It could be residual scar tissue. She has had symptoms of anxiety. PLAN: I will send a prescription for Ativan to take as needed. She will have reimaging a PET scan in 3 months time, to gauge her response to treatment. She will return here in 3 months for a followup visit. She will continue to follow up with Dr. Carmona, for her pulmonary issues. However, If she has symptoms of fatigue and headaches she will call. Thank you, CC: Dr. Laury Soto. Dr. Neftaly Carmona. Dr. Pete Byrne. (2) Erythrocytosis Status: Acute Assessment and plan: 2. POLYCYTHEMIA: Most likely related to her underlying pulmonary hypertension. In the meantime, her hemoglobin is within normal limit range. She had her phlebotomy, on February 24 2018. Her hemoglobin is normal now so she does not need further phlebotomy. PLAN: Will continue to monitor. - Time Spent With Patient Time Spent with Patient (in minutes): 25
[2021-06-25 15:43] LABS: Alanine Aminotransferase 16 U/L (0-31); Albumin Level 4.4 g/dL (3.5-5.0); Alkaline Phosphatase 78 U/L (39-117); Anion Gap 17 (12-20); Aspartate Amino Transferase 23 U/L (5-31); Bilirubin Total 1.3 mg/dL (0.0-1.0); Blood Urea Nitrogen 23 mg/dL (9-16); Calcium 9.7 mg/dL (8.4-10.2); Carbon Dioxide 24 mmol/L (22-29); Chloride 105 mmol/L (96-108); Creatinine Clr Calc Pharmacy 43.3; Estimated Glomerular Filt Rate 41; Glucose Random 93 mg/dL (60-115); Sodium 143 mmol/L (135-145); Total Protein 8.1 g/dL (6.5-8.0)
--- NOTE | 2021-06-25 16:37 | MHC.HEMONCMA ---
Pt was in for follow up.Clinical summary reviewed and updated, VSS. Labs were drawn. Pt to return in 3 months.
--- NOTE | 2021-06-26 12:11 | MHC.HEMONCSW ---
MET WITH PT WHO IS KNOWN TO ME FROM PREVIOUS ENCOUNTERS. ALERT, INDEPENDENT. DIAGNOSIS IS NEW RT LUNG CANCER AND SHE HAS BEEN FIGHTING RECURRENT MALIGNANT LT LUNG CANCER. EXPERIENCING MUCH ANXIETY WHICH AFFECTS HER BREATHING, TO ASK MD FOR ANTI ANXIETY MEDICATION. DISCUSSED DISEASE IMPACT ON HER AND HER LOVED ONES. DOES NOT WANT COUNSELING OR ZOOM SUPPORT INFORMATION. REMAINS HOPEFUL, HER CHILDREN AND GRANDCHILDREN ARE HAPPY AND HEALTHY. EDUCATION, GUIDANCE AND SUPPORT PROVIDED. NO HCP OR MOLST IN PLACE WE DISCUSSED IMPORTANCE OF THESE AND WILL CONTINUE TO DISCUSS THEM. SHE IS AWARE OF MY AVAILABILITY.
--- NOTE | 2021-07-20 15:59 | HO.HEMONCSCH ---
CT scan sent to [facility]. Informed pt to give us a call to schedule her appt in office so she can be hydrated before scan.
[2021-08-21 11:12] VITALS: BMI 26.9
[2021-08-21 11:13] VITALS: BP 122/65; PULSE 91; RESP 18; TEMP 36; O2SAT 92
[2021-08-21] MEDS: 0.9 % Sodium Chloride 1,000 ML 999 ML IV (11:28)
[2021-08-21 12:36] LABS: MANUAL DIFF FLAG NO
[2021-08-21 12:40] LABS: Basophils Absolute Auto 0.1 X10*3/uL (0.0-0.2); Eosinophils Absolute Auto 0.4 X10*3/uL (0.0-0.4); Eosinophils Percent Auto 5.3 % (0-4); Hematocrit 38.9 % (37.0-47.0); Hemoglobin 12.9 g/dl (12.0-16.0); Imm Gran Abs Auto 0.02 X10*3/uL (0.00-0.03); Imm Gran Pct Auto 0.3 % (0.0-0.4); Lymphocytes Absolute Auto 0.8 X10*3/uL (1.2-4.9); Lymphocytes Percent Auto 11.5 % (20-40); Mean Corpuscular HGB Conc 33.2 g/dl (31.0-35.0); Mean Corpuscular Volume 81.6 fL (80.0-98.0); Mean Platelet Volume 8.9 fL (9.4-12.3); Monocytes Absolute Auto 0.6 X10*3/uL (0.1-1.2); Monocytes Percent Auto 8.9 % (2-11); Platelet Count 229 X10*3/uL (160-400); Red Blood Count 4.77 X10*6/uL (4.20-5.50); Red Cell Distribution Width 17.2 % (11.0-16.0); White Blood Count 6.8 X10*3/uL (4.8-10.8)
--- NOTE | 2021-08-21 12:49 | MHC.HEMONC ---
Pt here for IV hydration prior to CT scan today. #22 angio inserted into right AC-blood return noted. 1000ml 0.9% NS infused. IV capped. Labs drawn peripherally by organizational consultant-specimen to lab. Pt to CT scan
[2021-08-21 13:01] LABS: Alanine Aminotransferase 11 U/L (0-31); Albumin Level 3.5 g/dL (3.5-5.0); Alkaline Phosphatase 63 U/L (39-117); Anion Gap 12 (12-20); Aspartate Amino Transferase 16 U/L (5-31); Bilirubin Total 0.7 mg/dL (0.0-1.0); Blood Urea Nitrogen 31 mg/dL (9-16); Calcium 8.8 mg/dL (8.4-10.2); Carbon Dioxide 24 mmol/L (22-29); Chloride 111 mmol/L (96-108); Estimated Glomerular Filt Rate 40; Glucose Random 116 mg/dL (60-115); Potassium 3.2 mmol/L (3.3-5.1); Sodium 144 mmol/L (135-145); Total Protein 6.2 g/dL (6.5-8.0)
[2021-09-17 14:07] VITALS: BP 123/65; RESP 16; TEMP 36.2; O2SAT 91; BMI 26.4
[2021-09-17 14:12] LABS: MANUAL DIFF FLAG NO
[2021-09-17 14:29] LABS: Basophils Percent Auto 0.6 % (0-2); Eosinophils Absolute Auto 0.3 X10*3/uL (0.0-0.4); Eosinophils Percent Auto 3.6 % (0-4); Hematocrit 44.9 % (37.0-47.0); Imm Gran Abs Auto 0.02 X10*3/uL (0.00-0.03); Imm Gran Pct Auto 0.3 % (0.0-0.4); Lymphocytes Percent Auto 14.2 % (20-40); Mean Corpuscular HGB Conc 33.4 g/dl (31.0-35.0); Mean Corpuscular Hemoglobin 26.3 pg (27.0-33.0); Mean Corpuscular Volume 78.8 fL (80.0-98.0); Mean Platelet Volume 8.5 fL (9.4-12.3); Monocytes Absolute Auto 0.6 X10*3/uL (0.1-1.2); Monocytes Percent Auto 8.2 % (2-11); Neutrophils Absolute Auto 5.2 x10*3/uL (2.0-8.3); Neutrophils Percent Auto 73.1 % (45-73); Platelet Count 256 X10*3/uL (160-400); Red Cell Distribution Width 17.4 % (11.0-16.0)
[2021-09-17 14:43] LABS: Alanine Aminotransferase 13 U/L (0-31); Albumin Level 4.3 g/dL (3.5-5.0); Alkaline Phosphatase 81 U/L (39-117); Anion Gap 17 (12-20); Aspartate Amino Transferase 16 U/L (5-31); Bilirubin Total 1.3 mg/dL (0.0-1.0); Blood Urea Nitrogen 23 mg/dL (9-16); Calcium 9.4 mg/dL (8.4-10.2); Carbon Dioxide 25 mmol/L (22-29); Chloride 102 mmol/L (96-108); Creatinine Clr Calc Pharmacy 42.2; Estimated Glomerular Filt Rate 40; Glucose Random 145 mg/dL (60-115); Sodium 141 mmol/L (135-145); Total Protein 7.4 g/dL (6.5-8.0)
--- NOTE | 2021-09-17 14:59 | MHC.HEMONCMA ---
Pt was in for follow up. Clinical summary reviewed and updated, VSS. Labs were drawn. Pt to return in 3 months. Called radiology to send over imagining to Pete Byrne in [facility].
--- NOTE | 2021-09-17 15:43 | P.PNHO_ITS ---
Medical Summary - Medical Summary Date of Service: 09/17/21 Chief complaint: Follow-up for: Non-small cell lung carcinoma. Medical Summary: DIAGNOSES: 1. Recurrent non-small cell Carcinoma of the lung. 2. History of Polycythemia. 3. Hypokalemic periodic paralysis. CURRENT THERAPY: 1. Status post surgery followed by adjuvant chemotherapy with Carboplatin and G emzar on September 07, 2006 to February 17, 2007. 2. Chest wall biopsy in June 2012 for a new left internal mammary adenopathy, revealed non-small cell carcinoma consistent with adenocarcinoma, EGFR and ALK negative. 3. Received radiation therapy, started September 27, completed end of October 2012. 4. Polycythemia, on intermittent phlebotomy. Her last phlebotomy was done on February 24 2018. 5. Status post SBRT to the lung nodule. Interval History Interval history: This is a pleasant 66 year-old lady here for a follow-up visit. She is feeling well. Only thing is her energy level is not so great. She gets a bit tired. About a week ago she noted pain in the left ribs. She was quite miserable. She did have a bout with bronchitis for a couple weeks. It has improved since then. She has been taking Motrin sparingly. She denies any cough no sputum. She does get short of breath on exertion. She denies any headache no dizziness. No abdominal pain nausea vomiting heartburn indigestion. Bowels moving without any gross blood. She tells me that she has been eating okay, her weight is stable. She is in good spirits. Rest of the review of systems is unremarkable. Previous history: She has history of gout. She had pain and swelling of her elbow that had to be drained by [facility]. She had a PET scan which revealed: 1. Although mild in intensity, increased FDG activity associated with the posterior pleural-based right lower lobe pulmonary nodule is strongly suspicious for malignancy. Correlation with recent biopsy results is recommended. 2. Mild FDG activity associated with scarring and atelectasis in the left upper lobe most likely represents posttreatment changes. The absence of a discrete foc us of more prominently increased FDG activity suggests this is not malignant in etiology. 3. A newly FDG avid focus in the rectosigmoid colon is suspicious for malignancy. While this may be physiological, it is a significant change from the 01/28/2019 PET/CT scan. Correlation with colonoscopy is recommended. 4. No additional abnormalities suspicious for other metastatic or malignant lesions are noted. 5. Cholelithiasis. 6. Vascular calcifications including coronary. She has completed SBRT. She had some back pain. he was seen by Dr. Carmona who gave her a course of steroids. She has underlying pulmonary hypertension, and COPD. She is under the care of Dr. Carmona. She is on a bunch of inhalers and other meds. She has headaches, at times which he attributes to the pulmonary hypertension medications. She had pulmonary function tests. Recent history: CT scan of the chest from 11/21 revealed: Severe underlying emphysema. Postoperative changes from left thoracotomy and pulmonary resection. Increasing solid component of a nodule in the right lower lobe posteriorly. This is concerning for new or metastatic malignancy. This may be amenable to CT-guide d sampling. FNA of right lower lobe lung nodule from 01/02 revealed: Positive for malignancy consistent with adenocarcinoma. She has some lesions on her hands. They are painful. He has noticed some redness and swelling of her right elbow. Previous history: She has retired. She is enjoying it. She has noticed some lumps on her right chest wall. Review of Systems - Constitutional Reports no additional constitutional complaints, Reports fatigue, Reports weakness, Denies weight loss - Eyes Reports no additional eye complaints - ENT Reports no additional ear, nose, mouth, and throat complaints - Cardiovascular Reports no additional cardiovascular complaints - Respiratory Reports no additional respiratory complaints - Gastrointestinal Reports no additional gastrointestinal complaints - Genitourinary Reports no additional female genitourinary complaints - Musculoskeletal Reports no additional musculoskeletal complaints - Integumentary/Breasts Skin/Breast: Reports no additional skin complaints - Neurologic Reports no additional neurologic complaints, Reports weakness - Psychiatric Reports no additional psychiatric complaints - Endocrine Reports no additional endocrine complaints - Hematologic/Lymphatic Reports no additional hematologic/lymphatic complaints - Allergic/Immunologic Reports no additional allergic/immunologic complaints [facility] Medical History: Medical History (Last Reviewed 09/17/21 @ 14:20 by Emilee Arroyo CMA) Calcinosis Chronic respiratory failure with hypoxia COPD (chronic obstructive pulmonary disease) Gout Hx of cancer of lung Lung cancer BERTIN (obstructive sleep apnea) Pulmonary hypertension Pulmonary nodule Raynaud's disease without gangrene Right heart failure SVT (supraventricular tachycardia) Functional capacity: independent ambulation Patient : No Family History: Family History (Last Reviewed 09/17/21 @ 14:20 by Emilee Arroyo CMA) Father Lung cancer Mother CVD (cardiovascular disease) Surgical History: Surgical History (Last Reviewed 09/17/21 @ 14:20 by Emilee Arroyo CMA) History of hip surgery History of lobectomy of lung History of thoracotomy Social History: Social History (Last Updated 09/17/21 @ 14:20 by Emilee Arroyo CMA) Living Situation History: Household Members: Spouse Housing: House Are you a primary animal care service worker to a significant other at home: No Do you presently have visiting nurse or other home services: No Alcohol History Details: 1. How often do you have a drink containing alcohol?: a. Never Tobacco History: Patient Tobacco Use Status: Former Tobacco user Tobacco use type: Cigarette Smoke Quit Date: 2004 e-Cigarette/Vaping Use: Never Used Substance Use History: Use of substances other than those prescribed or required for medical reasons : No Domestic Abuse History: Have you been hit, kicked, punched, or otherwise hurt by someone within the past year? If so, by whom?: No Homicidal Assessment: Do you have thoughts of harming others: None Do you have a plan to hurt others: No Plan Do you have the means to hurt others: No Nutrition Assessment: Recently lost weight without trying: No Patient : No Occupation Assessmet: service: No Current occupational status: retired Oncology Screenings - ECOG Performance Status ECOG Performance Status: 0 Home Medications and Allergies Home Medications Medication Instructions Recorded Confirmed Type albuterol sulfate 90 mcg/actuation 90 mcg INHALATION DAILY 02/17/20 09/17/21 History aerosol inhaler potassium chloride 20 mEq 60 meq PO DAILY 04/18/20 09/17/21 History tablet,extended release(part/cryst) furosemide 20 mg tablet 60 mg PO DAILY tab 09/25/20 09/17/21 History riociguat 2.5 mg tablet 2.5 mg PO TID 09/25/20 09/17/21 History macitentan 10 mg tablet 10 mg PO DAILY 02/01/21 09/17/21 History azithromycin 250 mg tablet 250 mg PO 3XW tab 05/01/21 09/17/21 History selexipag 600 mcg tablet 600 mcg PO BID tab 06/18/21 09/17/21 History Allergies Allergy/AdvReac Type Severity Reaction Status Date / Time cephalexin Allergy Severe rash Verified 09/17/21 14:20 Beta-Blockers AdvReac Intermediate SHORTNESS Verified 09/17/21 14:20 (Beta-Adrenergic Bloc OF BREATH Exam Vital signs: Vital Signs Temp 97.1 F 09/17/21 14:07 Pulse 91 08/21/21 11:13 Resp 16 09/17/21 14:07 BP 123/65 09/17/21 14:07 Pulse Ox 91 L 09/17/21 14:07 Intake & Output 09/16/21 09/17/21 09/17/21 18:59 06:59 18:59 Other: Weight 72.2 kg Weight in Grams 55564 Weight 72.2 kg BMI result Body Mass Index 26.4 - Constitutional Present: no acute distress - Routine HEENT Exam Head: Present: normal inspection Eye: Present: normal appearance ENT: Present: mucous membranes moist - Routine Neck Exam Present: full ROM - Routine Respiratory Exam Present: CTAB - Routine Cardiovascular Exam Cardiovascular: Present: RRR, S1, S2 - Routine Abdominal Exam Present: soft, nontender - Routine Rectal Exam Patient deferred: digital exam - Routine Extremities Exam Present: nontender - Routine Back/Spine/Pelvis Exam Back/Spine: Present: full ROM - Routine Skin Exam Present: intact - Routine Neurological Exam Present: alert, oriented X3 - Routine Psychiatric Exam Present: normal affect Data - Labs CBC & Chem 7: 09/17/21 14:11 09/17/21 14:11 Assessment and Plan Patient Active problem list reviewed?: Yes (1) Non-small cell lung cancer Status: Acute Assessment and plan: 65 year-old lady with history of: 1) Non-small cell lung Carcinoma. Initially diagnosed in spring. She had adjuvant chemotherapy with Carbo/Gemzar completed February 17, 2007. She then developed disease recurrence in the summer and received radiation therapy. She had a CT chest on September 15 which revealed: Emphysema. Stable postsurgical change to the left hemithorax following partial left upper lobe resection. No evidence of recurrent or metastatic disease seen. Recently, she had not been doing too well. She is still shortness of breath, especially on exertion. She has been under the care of the flavoring machine operator, Dr. Carmona, for pulmonary hypertension. He had initially advised Riociguat. However she did not tolerate it. She was then on Sildenafil BID. Now she is on a doublet. The plan is to add a 3rd agent. Hopefully that will relieve some of her symptoms, so she can function. She is still working [address] scan from April 28 revealed: 1. Stable 1 cm irregular shaped nodule right lower lobe subpleural reticular location. 2. Postsurgical changes, parenchymal thickening/scarring, air bronchogram with traction bronchiectasis left upper lobe and mid lung region are stable. 3. There is underlying severe emphysema. No evidence for recurrence of the lung cancer. I faxed a copy of the CAT scan of the chest, to Dr. Ocampo for his review. CT scan of the chest from 12/16/19: No significant interval change including a right lower lobe subpleural nodule. This is not significantly changed in size since the [address] scan and do not show significant activity on the previous PET CT scan. These characteristics favor a benign entity. No significant new or suspicious abnormality. Chest CT follow-up is recommended as per protocol. She feels some chest wall nodule on the right chest. She is eating well however she has lost a lot a weight. CT scan of the chest from 11/21 revealed: Severe underlying emphysema. Postoperative changes from left thoracotomy and pulmonary resection. Increasing solid component of a nodule in the right lower lobe posteriorly. This is concerning for new or metastatic malignancy. This may be amenable to CT- guided sampling. There is a juxtapleural mass-like abnormality posteromedial right lower lobe. This appears somewhat more solid. Measurements of the solid component as follows; 11/21/2020-1.4 x 1.4 cm 12/16/2019- 1.1 x 0.7 cm 04/28/2019-0.9 x 0.8 cm 05/20/2018-0.7 x 0.5 cm There is some traction bronchiectasis. MEDIASTINUM: There is mediastinal shift to the left. There is a lymph node in the anterior mediastinal fat 11/21/2020-0.8 cm 12/16/2019-0.8 cm 05/20/2018-0.8 cm FNA of right lower lobe lung nodule from 01/02 revealed: Positive for malignancy consistent with adenocarcinoma. I discussed the above results with her. She will need further staging workup. Will check PET scan and MRI of the brain. If the above confirm localized disease, will consider local therapy. One option is to proceed with surgical resection however, I am very concerned about her underlying lung function. She has severe emphysema and pulmonary hypertension. She has already had a lung resection on the other side. Once disease confined to the right lower lobe lung nodule is confirmed, will consider SBRT for the lung nodule. She had a PET scan which revealed: 1. Although mild in intensity, increased FDG activity associated with the posterior pleural-based right lower lobe pulmonary nodule is strongly suspicious for malignancy. Correlation with recent biopsy results is recommended. 2. Mild FDG activity associated with scarring and atelectasis in the left upper lobe most likely represents posttreatment changes. The absence of a discrete focus of more prominently increased FDG activity suggests this is not malignant in etiology. 3. A newly FDG avid focus in the rectosigmoid colon is suspicious for m alignancy. While this may be physiological, it is a significant change from the 01/28/2019 PET/CT scan. Correlation with colonoscopy is recommended. 4. No additional abnormalities suspicious for other metastatic or malignant lesions are noted. 5. Cholelithiasis. 6. Vascular calcifications including coronary. There was some uptake noted in the sigmoid colon. She underwent flexible sigmoidoscopy by GI Dr. Alejo. This was done on 02/15 and revealed: FINDINGS: The visualized colonic mucosa was normal. The colon was somewhat tortuous. There was moderate diverticulosis. No mass lesion was identified. There was some stool, which limited the sensitivity examination for detection of small polyps. This was washed and suctioned. Retroflexed examination showed small internal hemorrhoids. IMPRESSION: Negative sigmoidoscopy. I referred her for radiation therapy consultation, to Dr. Byrne, for consideration of SBRT. She had a CT scan of the brain for staging. This was negative. She has completed the SBRT. She had a CT scan of the chest on 06/01: Postsurgical changes left lower lobe and lingula. No recurrent mass or nodule seen. There is a right lower lobe subpleural-based nodule measuring 1.0 cm. It measured approximately 1.3 cm on the PET/CT exam and mildly hypermetabolic. No additional pulmonary nodule seen on present exam. There is diffuse centrilobular emphysema. No abnormal mediastinal or axillary lymphadenopathy seen. Mild deformity of left lower lateral chest wall from previous intervention. 08/21/[address] scan of the chest done which revealed: IMPRESSION: Postsurgical changes left lung with loss of left lung volume and ipsilateral mediastinal shift. A few scattered pulmonary nodules, largest in the right lower lobe stable. Some of the nodules are calcified and likely granulomas. No new nodules visualized. Reactive pretracheal lymph nodes are the same size but minimal fullness in some of the nodes measuring 1 cm. They are suspicious. She is concerned about residual disease. PLAN: I will send her imaging over to Dr. Byrne for his review as well. She will have repeat CT scan in 3 months time, to follow the pulmonary nodules.. She will return here in 3 months for a followup visit. She will continue to follow up with Dr. Carmona, for her pulmonary issues. He has an appointment in October. However, If she has symptoms she will call. Thank you, CC: Dr. Laury Soto. Dr. Neftaly Carmona. Dr. Pete Byrne. (2) Erythrocytosis Status: Acute Assessment and plan: 2. POLYCYTHEMIA: Most likely related to her underlying pulmonary hypertension. In the meantime, her hemoglobin is within normal limit range. She had her phlebotomy, on February 24 2018. Her hemoglobin is normal now so she does not need further phlebotomy. Hemoglobin today's 15. Hematocrit 45. PLAN: Will continue to monitor. - Time Spent With Patient Time Spent with Patient (in minutes): 25
--- NOTE | 2021-11-09 08:40 | MHC.HEMONCMA ---
Rec orders for hydration prior to CT Scan from Dr. Vogt, booked with [facility] for 11/20/21 at 7:30am. Patient notified and will go to [facility]. faxed orders over to [facility].
[2021-12-18 13:24] VITALS: BP 103/63; PULSE 90; RESP 16; TEMP 36.1; O2SAT 91; BMI 25.3
--- NOTE | 2021-12-18 13:34 | P.PNHO-ONC_ITS ---
Medical Summary - Medical Summary Date of Service: 12/18/21 Chief complaint: Follow-up for: Lung cancer. Medical Summary: DIAGNOSES: 1. Recurrent non-small cell Carcinoma of the lung. 2. History of Polycythemia. 3. Hypokalemic periodic paralysis. CURRENT THERAPY: 1. Status post surgery followed by adjuvant chemotherapy with Carboplatin and Gemzar on September 07, 2006 to February 17, 2007. 2. Chest wall biopsy in June 2012 for a new left internal mammary adenopathy, revealed non-small cell carcinoma consistent with adenocarcinoma, EGFR and ALK negative. 3. Received radiation therapy, started September 27, completed end of October 2012. 4. Polycythemia, on intermittent phlebotomy. Her last phlebotomy was done on February 24 2018. 5. Status post SBRT to the lung nodule. Interval History Interval history: This is a pleasant 66 year-old lady here for a follow-up visit. She is feeling, tired and has trouble breathing. She tells me that she came down with DAMIID, back in October. Her son caught it from work. Her got it and then she herself. She did not get too ill from it. She received the IV monoclonal antibody treatment. Her has had issues with hoarseness and dysphagia. He lost about 30 lb. He is able to drink fluids and boost etc, but not a solids. He saw Dr. arteaga. Has an appointment in [place], for further evaluation. She denies any cough no sputum. She does get short of breath on exertion. She denies any headache no dizziness. No abdominal pain nausea vomiting heartburn indigestion. Bowels moving without any gross blood. She tells me that she has been eating better, trying to build herself up. She is still losing weight. She is in good spirits. Rest of the review of systems is unremarkable. Previous history: She has history of gout. She had pain and swelling of her elbow that had to be drained by [facility]. She had a PET scan which revealed: 1. Although mild in intensity, increased FDG activity associated with the posterior pleural-based right lower lobe pulmonary nodule is strongly suspicious for malignancy. Correlation with recent biopsy results is recommended. 2. Mild FDG activity associated with scarring and atelectasis in the left upper lobe most likely represents posttreatment changes. The absence of a discrete focus of more prominently increased FDG activity suggests this is not malignant in etiology. 3. A newly FDG avid focus in the rectosigmoid colon is suspicious for malignancy. While this may be physiological, it is a significant change from the 01/28/2019 PET/CT scan. Correlation with colonoscopy is recommended. 4. No additional abnormalities suspicious for other metastatic or malignant lesions are noted. 5. Cholelithiasis. 6. Vascular calcifications including coronary. She has completed SBRT. She had some back pain. he was seen by Dr. Carmona who gave her a course of st eroids. She has underlying pulmonary hypertension, and COPD. She is under the care of Dr. Carmona. She is on a bunch of inhalers and other meds. She has headaches, at times which he attributes to the pulmonary hypertension medications. She had pulmonary function tests. Recent history: CT scan of the chest from 11/21 revealed: Severe underlying emphysema. Postoperative changes from left thoracotomy and pulmonary resection. Increasing solid component of a nodule in the right lower lobe posteriorly. This is concerning for new or metastatic malignancy. This may be amenable to CT-g uided sampling. FNA of right lower lobe lung nodule from 01/02 revealed: Positive for malignancy consistent with adenocarcinoma. She has some lesions on her hands. They are painful. He has noticed some redness and swelling of her right elbow. Previous history: She has retired. She is enjoying it. She has noticed some lumps on her right chest wall. Review of Systems - Constitutional Reports system reviewed and no additional complaints, except as documented, Reports weakness, Reports weight loss, Denies fever(s), Denies headache(s), Denies weight gain - Eyes Reports system reviewed and no additional complaints, except as documented - ENT Reports system reviewed and no additional complaints, except as documented - Cardiovascular Reports system reviewed and no additional complaints, except as documented - Respiratory Reports no additional respiratory complaints - Gastrointestinal Reports system reviewed and no additional complaints, except as documented - Genitourinary Reports no additional female genitourinary complaints - Musculoskeletal Reports system reviewed and no additional complaints, except as documented - Integumentary/Breasts Skin/Breast: Reports no additional skin complaints - Neurologic Reports system reviewed and no additional complaints, except as documented, Reports weakness - Psychiatric Reports system reviewed and no additional complaints, except as documented - Endocrine Reports no additional endocrine complaints - Hematologic/Lymphatic Reports system reviewed and no additional complaints, except as documented - Allergic/Immunologic Reports system reviewed and no additional complaints, except as documented PMFSH Medical History: Medical History (Last Reviewed 12/18/21 @ 13:31 by Emilee Arroyo CMA) Calcinosis Chronic respiratory failure with hypoxia COPD (chronic obstructive pulmonary disease) Gout Hx of cancer of lung Onset Date: ~2004 Lymphadenopathy Non-small cell lung cancer Onset Date: ~2004 BERTIN (obstructive sleep apnea) Pulmonary hypertension Pulmonary nodule Raynaud's disease without gangrene Right heart failure SVT (supraventricular tachycardia) Functional capacity: independent ambulation Patient : No Family History: Family History (Last Reviewed 12/18/21 @ 13:31 by Emilee Arroyo CMA) Father Lung cancer Mother CVD (cardiovascular disease) Surgical History: Surgical History (Last Reviewed 12/18/21 @ 13:31 by Emilee Arroyo CMA) History of cardiac cath Onset Date: ~2017 History of colonoscopy Onset Date: ~2020 History of lobectomy of lung Onset Date: ~2006 History of right hip replacement Onset Date: ~2013 History of thoracic surgery Onset Date: ~2004 Social History: Social History (Last Reviewed 12/18/21 @ 13:31 by Emilee Arroyo CMA) Living Situation History: Household Members: Spouse Housing: House Are you a primary ostomy care nurse to a significant other at home: No Do you presently have visiting nurse or other home services: No Alcohol History Details: 1. How often do you have a drink containing alcohol?: a. Never Tobacco History: Patient Tobacco Use Status: Former Tobacco user Tobacco use type: Cigarette Smoke Quit Date: 2004 e-Cigarette/Vaping Use: Never Used Substance Use History: Use of substances other than those prescribed or required for medical reasons : No Domestic Abuse History: Have you been hit, kicked, punched, or otherwise hurt by someone within the past year? If so, by whom?: No Homicidal Assessment: Do you have thoughts of harming others: None Do you have a plan to hurt others: No Plan Do you have the means to hurt others: No Nutrition Assessment: Recently lost weight without trying: No Patient : No Occupation Assessmet: service: No Current occupational status: retired Home Medications and Allergies Home Medications Medication Instructions Recorded Confirmed Type albuterol sulfate 90 mcg/actuation 90 mcg inhalation DAILY 02/17/20 12/18/21 History aerosol inhaler potassium chloride 20 mEq 60 meq PO DAILY 04/18/20 12/18/21 History tablet,extended release(part/cryst) furosemide 20 mg tablet 60 mg PO DAILY 09/25/20 12/18/21 History riociguat 2.5 mg tablet 2.5 mg PO TID 09/25/20 12/18/21 History macitentan 10 mg tablet 10 mg PO DAILY 02/01/21 12/18/21 History azithromycin 250 mg tablet 250 mg PO 3XW 05/01/21 12/18/21 History selexipag 600 mcg tablet 600 mcg PO BID 06/18/21 12/18/21 History Allergies Allergy/AdvReac Type Severity Reaction Status Date / Time cephalexin Allergy Severe rash Verified 12/18/21 13:31 Beta-Blockers AdvReac Intermediate SHORTNESS Verified 12/18/21 13:31 (Beta-Adrenergic Bloc OF BREATH Exam Vital signs: Vital Signs Temp 97 F 12/18/21 13:24 Pulse 90 12/18/21 13:24 Resp 16 12/18/21 13:24 BP 103/63 12/18/21 13:24 Pulse Ox 91 L 12/18/21 13:24 O2 Del Method 12/18/21 13:24 Intake & Output 12/17/21 12/18/21 12/18/21 18:59 06:59 18:59 Other: Weight 69 kg Weight in Grams 81350 Weight 69 kg BMI result Body Mass Index 25.3 - Constitutional Present: no acute distress - Routine HEENT Exam Head: Present: normal inspection Eye: Present: normal appearance ENT: Present: mucous membranes moist - Routine Neck Exam Present: full ROM - Routine Respiratory Exam Present: CTAB - Routine Cardiovascular Exam Cardiovascular: Present: RRR, S1, S2 - Routine Abdominal Exam Present: soft, nontender - Routine Rectal Exam Patient deferred: digital exam - Routine Extremities Exam Present: nontender - Routine Back/Spine/Pelvis Exam Back/Spine: Present: full ROM - Routine Skin Exam Present: intact - Routine Neurological Exam Present: alert, oriented X3 - Routine Psychiatric Exam Present: normal affect Data - Labs CBC & Chem 7: 12/18/21 13:27 12/18/21 13:27 Assessment and Plan Patient Active problem list reviewed?: Yes (1) Non-small cell lung cancer Problem details: (Dx Adenocarcinoma of DENIA/chest wall 2005 - s/p resection/chemo/radiation. 2007: Recurrence - s/p DENIA lobectomy & chemo. 2014:Recurrence - s/p radiation to Lt lung/medistinum. 2020: new RLL adenocarcinoma - s/p radiation.) Status: Acute Assessment and plan: 65 year-old lady with history of: 1) Non-small cell lung Carcinoma. Initially diagnosed in spring. She had adjuvant chemotherapy with Carbo/Gemzar completed February 17, 2007. She then developed disease recurrence in the summer and received radiation therapy. She had a CT chest on September 15 which revealed: Emphysema. Stable postsurgical change to the left hemithorax following partial left upper lobe resection. No evidence of recurrent or metastatic disease seen. Recently, she had not been doing too well. She is still shortness of breath, especially on exertion. She has been under the care of the supervisor clam bed, Dr. Carmona, for pulmonary hypertension. He had initially advised Riociguat. However she did not tolerate it. She was then on Sildenafil BID. Now she is on a doublet. The plan is to add a 3rd agent. Hopefully that will relieve some of her symptoms, so she can function. She is still working [address] scan from April 28 revealed: 1. Stable 1 cm irregular shaped nodule right lower lobe subpleural reticular location. 2. Postsurgical changes, parenchymal thickening/scarring, air bronchogram with traction bronchiectasis left upper lobe and mid lung region are stable. 3. There is underlying severe emphysema. No evidence for recurrence of the lung cancer. I faxed a copy of the CAT scan of the chest, to Dr. Ocapmo for his review. CT scan of the chest from 12/16/19: No significant interval change including a right lower lobe subpleural nodule. This is not significantly changed in size since the [address] scan and do not show significant activity on the previous PET CT scan. These characteristics favor a benign entity. No significant new or suspicious abnormality. Chest CT follow-up is recommended as per protocol. She feels some chest wall nodule on the right chest. She is eating well however she has lost a lot a weight. CT scan of the chest from 11/21 revealed: Severe underlying emphysema. Postoperative changes from left thoracotomy and pulmonary resection. Increasing solid component of a nodule in the right lower lobe posteriorly. This is concerning for new or metastatic malignancy. This may be amenable to CT- guided sampling. There is a juxtapleural mass-like abnormality posteromedial right lower lobe. Th is appears somewhat more solid. Measurements of the solid component as follows; 11/21/2020-1.4 x 1.4 cm 12/16/2019- 1.1 x 0.7 cm 04/28/2019-0.9 x 0.8 cm 05/20/2018-0.7 x 0.5 cm There is some traction bronchiectasis. MEDIASTINUM: There is mediastinal shift to the left. There is a lymph node in the anterior mediastinal fat 11/21/2020-0.8 cm 12/16/2019-0.8 cm 05/20/2018-0.8 cm FNA of right lower lobe lung nodule from 01/02 revealed: Positive for malignancy consistent with adenocarcinoma. I discussed the above results with her. She will need further staging workup. Will check PET scan and MRI of the brain. If the above confirm localized disease, will consider local therapy. One option is to proceed with surgical resection however, I am very concerned about her underlying lung function. She has severe emphysema and pulmonary hypertension. She has already had a lung resection on the other side. Once disease confined to the right lower lobe lung nodule is confirmed, will consider SBRT for the lung nodule. She had a PET scan which revealed: 1. Although mild in intensity, increased FDG activity associated with the posterior pleural-based right lower lobe pulmonary nodule is strongly suspicious for malignancy. Correlation with recent biopsy results is recommended. 2. Mild FDG activity associated with scarring and atelectasis in the left upper lobe most likely represents posttreatment changes. The absence of a discrete focus of more prominently increased FDG activity suggests this is not malignant in etiology. 3. A newly FDG avid focus in the rectosigmoid colon is suspicious for malignancy. While this may be physiological, it is a significant change from the 01/28/2019 PET/CT scan. Correlation with colonoscopy is recommended. 4. No additional abnormalities suspicious for other metastatic or malignant lesions are noted. 5. Cholelithiasis. 6. Vascular calcifications including coronary. There was some uptake noted in the sigmoid colon. She underwent flexible sigmoidoscopy by GI Dr. Alejo. This was done on 02/15 and revealed: FINDINGS: The visualized colonic mucosa was normal. The colon was somewhat tortuous. There was moderate diverticulosis. No mass lesion was identified. There was some stool, which limited the sensitivity examination for detection of small polyps. This was washed and suctioned. Retroflexed examination showed small internal hemorrhoids. IMPRESSION: Negative sigmoidoscopy. I referred her for radiation therapy consultation, to Dr. Byrne, for consideration of SBRT. She had a CT scan of the brain for staging. This was negative. She has completed the SBRT. She had a CT scan of the chest on 06/01: Postsurgical changes left lower lobe and lingula. No recurrent mass or nodule seen. There is a right lower lobe subpleural-based nodule measuring 1.0 cm. It measured approximately 1.3 cm on the PET/CT exam and mildly hypermetabolic. No additional pulmonary nodule seen on present exam. There is diffuse centrilobular emphysema. No abnormal mediastinal or axillary lymphadenopathy seen. Mild deformity of left lower lateral chest wall from previous intervention. 08/21/[address] scan of the chest done which revealed: IMPRESSION: Postsurgical changes left lung with loss of left lung volume and ipsilateral mediastinal shift. A few scattered pulmonary nodules, largest in the right lower lobe stable. Some of the nodules are calcified and likely granulomas. No new nodules visualized. Reactive pretracheal lymph nodes are the same size but minimal fullness in some of the nodes measuring 1 cm. They are suspicious. She is concerned about residual disease. She had a PET scan on 12/04 which revealed: 1. Nodular opacities in the right lower lobe appear similar or slightly less prominent than on the 01/16/[address] scan and show only weak FDG activity most suggestive of an inflammatory process. The appearance is not significantly changed from the recent 11/20/[address] scan. 2. Extensive postsurgical changes in the right lung and chest wall are noted with only weakly associated FDG activity likely due to some mild postoperative inflammatory changes. 3. There are no abnormalities suspicious for metastatic or recurrent malignancy. 4. Cholelithiasis. 5. Vascular calcifications including coronary. She is feeling some difficulty breathing on exertion. However it could be related to the recent COVID infection. She did receive the antibody. PLAN: I will discuss her imaging results with the pulmonary team. Will send it over to Dr. Byrne for his review as well. She will have short interval repeat CT scan in 3 months time, to follow the pulmonary nodules.. She will return here in 3 months for a followup visit. She will continue to follow up with Dr. Carmona, for her pulmonary issues. However, If she has symptoms she will call. Thank you, CC: Dr. Laury Soto. Dr. Neftaly Carmona. Dr. Pete Byrne. (2) Erythrocytosis Status: Acute Assessment and plan: 2. POLYCYTHEMIA: Most likely related to her underlying pulmonary hypertension. In the meantime, her hemoglobin is within normal limit range. She had her phlebotomy, on February 24 2018. Her hemoglobin is normal now so she does not need further phlebotomy. Hemoglobin today's 15. Hematocrit 45. PLAN: Will continue to monitor. - Time Spent With Patient Time Spent with Patient (in minutes): 30
[2021-12-18 13:53] LABS: MANUAL DIFF FLAG NO
[2021-12-18 13:58] LABS: Basophils Absolute Auto 0.1 X10*3/uL (0.0-0.2); Basophils Percent Auto 1.2 % (0-2); Eosinophils Absolute Auto 0.5 X10*3/uL (0.0-0.4); Eosinophils Percent Auto 6.6 % (0-4); Hematocrit 47.5 % (37.0-47.0); Hemoglobin 15.8 g/dl (12.0-16.0); Imm Gran Abs Auto 0.03 X10*3/uL (0.00-0.03); Imm Gran Pct Auto 0.4 % (0.0-0.4); Lymphocytes Absolute Auto 1.1 X10*3/uL (1.2-4.9); Lymphocytes Percent Auto 15.6 % (20-40); Mean Corpuscular HGB Conc 33.3 g/dl (31.0-35.0); Mean Corpuscular Hemoglobin 26.3 pg (27.0-33.0); Mean Platelet Volume 9.1 fL (9.4-12.3); Monocytes Absolute Auto 0.6 X10*3/uL (0.1-1.2); Monocytes Percent Auto 8.3 % (2-11); Neutrophils Absolute Auto 4.9 x10*3/uL (2.0-8.3); Neutrophils Percent Auto 67.9 % (45-73); Platelet Count 305 X10*3/uL (160-400); Red Blood Count 6.01 X10*6/uL (4.20-5.50); Red Cell Distribution Width 18.5 % (11.0-16.0); White Blood Count 7.2 X10*3/uL (4.8-10.8)
[2021-12-18 14:13] LABS: Alanine Aminotransferase 15 U/L (0-31); Albumin Level 4.5 g/dL (3.5-5.0); Alkaline Phosphatase 75 U/L (39-117); Anion Gap 17 (12-20); Aspartate Amino Transferase 20 U/L (5-31); Bilirubin Total 1.3 mg/dL (0.0-1.0); Blood Urea Nitrogen 27 mg/dL (9-16); Calcium 9.7 mg/dL (8.4-10.2); Carbon Dioxide 25 mmol/L (22-29); Chloride 104 mmol/L (96-108); Creatinine Clr Calc Pharmacy 40.5; Estimated Glomerular Filt Rate 39; Glucose Random 91 mg/dL (60-115); Potassium 3.1 mmol/L (3.3-5.1); Sodium 143 mmol/L (135-145)
--- NOTE | 2021-12-18 16:29 | MHC.HEMONCMA ---
Pt was in for follow up. Clinical summary reviewed and updated, VSS. Labs were drawn. Pt to return in 3 months.
--- NOTE | 2022-03-05 13:27 | HE.ONCSEC ---
PATIENT CALLED REGARDING A CT SHE SAID THAT IS SUPPOSED TO BE DONE SOON . UPON LOOKING AT DR'S REPORT I SEE THAT SAID SHE WANTS A REPEAT OF CT ( SO THAT WOULD BE IN MARCH ) I WILL NOTIFY ERIKA SO SHE CAN PUT IN THE ORDER.
--- NOTE | 2022-04-02 11:55 | HE.ONCSEC ---
PATIENT CALLED IN REGARDS TO IV HYDRATION . SHE STATES THAT SHE ALWAYS GETS AN IV HYDRATION BEFORE HER CT SCAN WHICH IS SCHEDULED FOR 04/09/22 . I INFORMED BALJIT VERBALLY AND ALSO LEFT HER A STICKY NOTE . I INFORMED PATIENT WELL THAT SOMEONE WILL CALL HER BACK TO ANSWER HER QUESTION SOON THEY CAN .
--- NOTE | 2022-04-04 09:11 | HE.ONCSEC ---
PATIENT CALLED STATING SHE HAD GOTTEN A CALL FROM JOSÉ ANTONIO , I INFORMED JOSÉ ANTONIO OF THIS AND I TRANSFERRED CALL TO JOSÉ ANTONIO
[2022-04-09 13:54] VITALS: BMI 25.9
[2022-04-09 13:58] LABS: MANUAL DIFF FLAG NO
[2022-04-09 14:01] LABS: Basophils Absolute Auto 0.1 X10*3/uL (0.0-0.2); Basophils Percent Auto 1.2 % (0-2); Eosinophils Absolute Auto 0.3 X10*3/uL (0.0-0.4); Eosinophils Percent Auto 4.4 % (0-4); Hemoglobin 14.5 g/dl (12.0-16.0); Imm Gran Abs Auto 0.02 X10*3/uL (0.00-0.03); Imm Gran Pct Auto 0.3 % (0.0-0.4); Lymphocytes Absolute Auto 0.9 X10*3/uL (1.2-4.9); Mean Corpuscular HGB Conc 32.2 g/dl (31.0-35.0); Mean Corpuscular Hemoglobin 24.5 pg (27.0-33.0); Mean Corpuscular Volume 76.1 fL (80.0-98.0); Mean Platelet Volume 8.2 fL (9.4-12.3); Monocytes Absolute Auto 0.6 X10*3/uL (0.1-1.2); Monocytes Percent Auto 7.9 % (2-11); Neutrophils Absolute Auto 5.7 x10*3/uL (2.0-8.3); Neutrophils Percent Auto 74.2 % (45-73); Platelet Count 241 X10*3/uL (160-400); Red Blood Count 5.91 X10*6/uL (4.20-5.50); Red Cell Distribution Width 19.9 % (11.0-16.0); White Blood Count 7.7 X10*3/uL (4.8-10.8)
[2022-04-09 14:18] LABS: Alanine Aminotransferase 18 U/L (0-31); Albumin Level 4.1 g/dL (3.5-5.0); Alkaline Phosphatase 84 U/L (39-117); Anion Gap 13 (12-20); Aspartate Amino Transferase 20 U/L (5-31); Bilirubin Total 0.9 mg/dL (0.0-1.0); Blood Urea Nitrogen 31 mg/dL (9-16); Calcium 9.5 mg/dL (8.4-10.2); Carbon Dioxide 26 mmol/L (22-29); Chloride 106 mmol/L (96-108); Creatinine Clr Calc Pharmacy 36.1; Estimated Glomerular Filt Rate 34; Glucose Random 96 mg/dL (60-115); Potassium 3.1 mmol/L (3.3-5.1); Sodium 142 mmol/L (135-145)
--- NOTE | 2022-04-16 10:37 | PM.HEMONCPN ---
Medical Summary - Medical Summary Date of Service: 04/16/22 Chief complaint: Follow-up for: Non-small cell lung carcinoma. Medical Summary: DIAGNOSES: 1. Recurrent non-small cell Carcinoma of the lung. 2. History of Polycythemia. 3. Hypokalemic periodic paralysis. CURRENT THERAPY: 1. Status post surgery followed by adjuvant chemotherapy with Carboplatin and Gemzar on September 07, 2006 to February 17, 2007. 2. Chest wall biopsy in June 2012 for a new left internal mammary adenopathy, revealed non-small cell carcinoma consistent with adenocarcinoma, EGFR and ALK negative. 3. Received radiation therapy, started September 27, completed end of October 2012. 4. Polycythemia, on intermittent phlebotomy. Her last phlebotomy was done on February 24 2018. 5. Status post SBRT to the lung nodule. Interval History Interval history: This is a pleasant 66 year-old lady here for a follow-up visit. She is not feeling too well. The main issue is her trouble breathing. When she gets short of breath she gets rather anxious. She has home O2. She uses it overnight and sometimes during the day. She denies chest pain. She does have cough. She was given a course of antibiotics for bronchitis. She was also prescribed prednisone. She denies any headache no dizziness. No abdominal pain nausea vomiting heartburn indigestion. Bowels moving without any gross blood. She tells me that she has been eating better, trying to build herself up. She is still losing weight. She is in good spirits. Rest of the review of systems is unremarkable. Previous history: She tells me that she came down with COVID, back in October. Her son caught it from work. Her got it and then she herself. She did not get too ill from it. She received the IV monoclonal antibody treatment. Her has had issues with hoarseness and dysphagia. He lost about 30 lb. He is able to drink fluids and boost etc, but not a solids. He saw Dr. arteaga. Has an appointment in [place], for further evaluation. She denies any cough no sputum. She does get short of breath on exertion. She has history of gout. She had pain and swelling of her elbow that had to be drained by [facility]. She had a PET scan which revealed: 1. Although mild in intensity, increased FDG activity associated with the posterior pleural-based right lower lobe pulmonary nodule is strongly suspicious for malignancy. Correlation with recent biopsy results is recommended. 2. Mild FDG activity associated with scarring and atelectasis in the left upper lobe most likely represents posttreatment changes. The absence of a discrete focus of more prominently increased FDG activity suggests this is not malignant in etiology. 3. A newly FDG avid focus in the rectosigmoid colon is suspicious for malignancy. While this may be physiological, it is a significant change from the 01/28/2019 PET/CT scan. Correlation with colonoscopy is recommended. 4. No additional abnormalities suspicious for other metastatic or malignant lesions are noted. 5. Cholelithiasis. 6. Vascular calcifications including coronary. She has completed SBRT. She had some back pain. he was seen by Dr. Carmona who gave her a course of steroids. She has underlying pulmonary hypertension, and COPD. She is under the care of Dr. Carmona. She is on a bunch of inhalers and other meds. She has headaches, at times which he attributes to the pulmonary hypertension medications. She had pulmonary function tests. Recent history: CT scan of the chest from 11/21 revealed: Severe underlying emphysema. Postoperative changes from left thoracotomy and pulmonary resection. Increasing solid component of a nodule in the right lower lobe posteriorly. This is concerning for new or metastatic malignancy. This may be amenable to CT-guided sampling. FNA of right lower lobe lung nodule from 01/02 revealed: Positive for malignancy consistent with adenocarcinoma. She has some lesions on her hands. They are painful. He has noticed some redness and swelling of her right elbow. Previous history: She has retired. She is enjoying it. She has noticed some lumps on her right chest wall. Review of Systems - Constitutional Reports system reviewed and no additional complaints, except as documented, Reports weight loss, Denies weakness - Eyes Reports system reviewed and no additional complaints, except as documented - ENT Reports system reviewed and no additional complaints, except as documented - Cardiovascular Reports system reviewed and no additional complaints, except as documented, Reports shortness of breath - Respiratory Reports no additional respiratory complaints - Gastrointestinal Reports system reviewed and no additional complaints, except as documented - Genitourinary Reports no additional female genitourinary complaints - Musculoskeletal Reports system reviewed and no additional complaints, except as documented - Integumentary/Breasts Skin/Breast: Reports no additional skin complaints - Neurologic Reports system reviewed and no additional complaints, except as documented, Reports weakness, Denies headache(s) - Psychiatric Reports system reviewed and no additional complaints, except as documented - Endocrine Reports no additional endocrine complaints - Hematologic/Lymphatic Reports system reviewed and no additional complaints, except as documented - Allergic/Immunologic Reports system reviewed and no additional complaints, except as documented [facility] Medical History: Medical History (Last Reviewed 04/16/22 @ 10:46 by Emilee Arroyo CMA) Calcinosis Chronic respiratory failure with hypoxia COPD (chronic obstructive pulmonary disease) Gout Hx of cancer of lung Onset Date: ~2004 Lymphadenopathy Non-small cell lung cancer Onset Date: ~2004 BERTIN (obstructive sleep apnea) Pulmonary hypertension Pulmonary nodule Raynaud's disease without gangrene Right heart failure SVT (supraventricular tachycardia) Functional capacity: independent ambulation Patient : No Family History: Family History (Last Reviewed 04/16/22 @ 10:47 by Emilee Arroyo CMA) Father Lung cancer Mother CVD (cardiovascular disease) Surgical History: Surgical History (Last Reviewed 04/16/22 @ 10:47 by Emilee Arroyo CMA) History of cardiac cath Onset Date: ~2017 History of colonoscopy Onset Date: ~2020 History of lobectomy of lung Onset Date: ~2006 History of right hip replacement Onset Date: ~2013 History of thoracic surgery Onset Date: ~2004 Social History: Social History (Last Reviewed 04/16/22 @ 10:47 by Emilee Arroyo CMA) Living Situation History: Household Members: Spouse Housing: House Are you a primary healthcare facility administrator to a significant other at home: No Do you presently have visiting nurse or other home services: No Tobacco History: Patient Tobacco Use Status: Former Tobacco user Tobacco use type: Cigarette Smoke Quit Date: 2004 e-Cigarette/Vaping Use: Never Used Occupation Assessmet: service: No Current occupational status: retired Oncology Screenings - ECOG Performance Status ECOG Performance Status: 0 Home Medications and Allergies Home Medications Medication Instructions Recorded Confirmed Type albuterol sulfate 90 mcg/actuation 90 mcg inhalation DAILY 02/17/20 04/16/22 History aerosol inhaler potassium chloride 20 mEq 60 meq PO DAILY 04/18/20 04/16/22 History tablet,extended release(part/cryst) furosemide 20 mg tablet 60 mg PO DAILY 09/25/20 04/16/22 History riociguat 2.5 mg tablet 2.5 mg PO TID 09/25/20 04/16/22 History macitentan 10 mg tablet 10 mg PO DAILY 02/01/21 04/16/22 History selexipag 600 mcg tablet 600 mcg PO BID 06/18/21 04/16/22 History nebulizers 01/15/22 04/16/22 History Allergies Allergy/AdvReac Type Severity Reaction Status Date / Time cephalexin Allergy Severe rash Verified 04/16/22 10:47 Beta-Blockers AdvReac Intermediate SHORTNESS Verified 04/16/22 10:47 (Beta-Adrenergic Bloc OF BREATH Exam Vital signs: Vital Signs Temp 97 F 12/18/21 13:24 Pulse 90 12/18/21 13:24 Resp 16 12/18/21 13:24 BP 103/63 12/18/21 13:24 Pulse Ox 91 L 12/18/21 13:24 O2 Del Method 12/18/21 13:24 Weight 70.9 kg BMI result Body Mass Index 25.9 - Constitutional Present: no acute distress - Routine HEENT Exam Head: Present: normal inspection Eye: Present: normal appearance ENT: Present: mucous membranes moist - Routine Neck Exam Present: full ROM - Routine Respiratory Exam Present: CTAB - Routine Cardiovascular Exam Cardiovascular: Present: RRR, S1, S2 - Routine Abdominal Exam Present: soft, nontender - Routine Rectal Exam Patient deferred: digital exam - Routine Extremities Exam Present: nontender - Routine Back/Spine/Pelvis Exam Back/Spine: Present: full ROM - Routine Skin Exam Present: intact - Routine Neurological Exam Present: alert, oriented X3 - Routine Psychiatric Exam Present: normal affect Data - Labs CBC & Chem 7: 04/09/22 13:52 04/09/22 13:52 Assessment and Plan Patient Active problem list reviewed?: Yes (1) Non-small cell lung cancer Problem details: (Dx Adenocarcinoma of DENIA/chest wall 2005 - s/p resection/chemo/radiation. 2007: Recurrence - s/p DENIA lobectomy & chemo. 2014:Recurrence - s/p radiation to Lt lung/medistinum. 2020: new RLL adenocarcinoma - s/p radiation.) Status: Acute Assessment and plan: 65 year-old lady with history of: 1) Non-small cell lung Carcinoma. Initially diagnosed in spring. She had adjuvant chemotherapy with Carbo/Gemzar completed February 17, 2007. She then developed disease recurrence in the summer and received radiation therapy. She had a CT chest on September 15 which revealed: Emphysema. Stable postsurgical change to the left hemithorax following partial left upper lobe resection. No evidence of recurrent or metastatic disease seen. Recently, she had not been doing too well. She is still shortness of breath, especially on exertion. She has been under the care of the supervisor cook house, Dr. Carmona, for pulmonary hypertension. He had initially advised Riociguat. However she did not tolerate it. She was then on Sildenafil BID. Now she is on a doublet. The plan is to add a 3rd agent. Hopefully that will relieve some of her symptoms, so she can function. She is still working [address] scan from April 28 revealed: 1. Stable 1 cm irregular shaped nodule right lower lobe subpleural reticular location. 2. Postsurgical changes, parenchymal thickening/scarring, air bronchogram with traction bronchiectasis left upper lobe and mid lung region are stable. 3. There is underlying severe emphysema. No evidence for recurrence of the lung cancer. I faxed a copy of the CAT scan of the chest, to Dr. Ocampo for his review. CT scan of the chest from 12/16/19: No significant interval change including a right lower lobe subpleural nodule. This is not significantly changed in size since the [address] scan and do not show significant activity on the previous PET CT scan. These characteristics favor a benign entity. No significant new or suspicious abnormality. Chest CT follow-up is recommended as per protocol. She feels some chest wall nodule on the right chest. She is eating well however she has lost a lot a weight. CT scan of the chest from 11/21 revealed: Severe underlying emphysema. Postoperative changes from left thoracotomy and pulmonary resection. Increasing solid component of a nodule in the right lower lobe posteriorly. This is concerning for new or metastatic malignancy. This may be amenable to CT-guided sampling. There is a juxtapleural mass-like abnormality posteromedial right lower lobe. This appears somewhat more solid. Measurements of the solid component as follows; 11/21/2020-1.4 x 1.4 cm 12/16/2019- 1.1 x 0.7 cm 04/28/2019-0.9 x 0.8 cm 05/20/2018-0.7 x 0.5 cm There is some traction bronchiectasis. MEDIASTINUM: There is mediastinal shift to the left. There is a lymph node in the anterior mediastinal fat 11/21/2020-0.8 cm 12/16/2019-0.8 cm 05/20/2018-0.8 cm FNA of right lower lobe lung nodule from 01/02 revealed: Positive for malignancy consistent with adenocarcinoma. I discussed the above results with her. She will need further staging workup. Will check PET scan and MRI of the brain. If the above confirm localized disease, will consider local therapy. One option is to proceed with surgical resection however, I am very concerned about her underlying lung function. She has severe emphysema and pulmonary hypertension. She has already had a lung resection on the other side. Once disease confined to the right lower lobe lung nodule is confirmed, will consider SBRT for the lung nodule. She had a PET scan which revealed: 1. Although mild in intensity, increased FDG activity associated with the posterior pleural-based right lower lobe pulmonary nodule is strongly suspicious for malignancy. Correlation with recent biopsy results is recommended. 2. Mild FDG activity associated with scarring and atelectasis in the left upper lobe most likely represents posttreatment changes. The absence of a discrete focus of more prominently increased FDG activity suggests this is not malignant in etiology. 3. A newly FDG avid focus in the rectosigmoid colon is suspicious for malignancy. While this may be physiological, it is a significant change from the 01/28/2019 PET/CT scan. Correlation with colonoscopy is recommended. 4. No additional abnormalities suspicious for other metastatic or malignant lesions are noted. 5. Cholelithiasis. 6. Vascular calcifications including coronary. There was some uptake noted in the sigmoid colon. She underwent flexible sigmoidoscopy by GI Dr. Alejo. This was done on 02/15 and revealed: FINDINGS: The visualized colonic mucosa was normal. The colon was somewhat tortuous. There was moderate diverticulosis. No mass lesion was identified. There was some stool, which limited the sensitivity examination for detection of small polyps. This was washed and suctioned. Retroflexed examination showed small internal hemorrhoids. IMPRESSION: Negative sigmoidoscopy. I referred her for radiation therapy consultation, to Dr. Byrne, for consideration of SBRT. She had a CT scan of the brain for staging. This was negative. She has completed the SBRT. She had a CT scan of the chest on 06/01: Postsurgical changes left lower lobe and lingula. No recurrent mass or nodule seen. There is a right lower lobe subpleural-based nodule measuring 1.0 cm. It measured approximately 1.3 cm on the PET/CT exam and mildly hypermetabolic. No additional pulmonary nodule seen on present exam. There is diffuse centrilobular emphysema. No abnormal mediastinal or axillary lymphadenopathy seen. Mild deformity of left lower lateral chest wall from previous intervention. 08/21/[address] scan of the chest done which revealed: IMPRESSION: Postsurgical changes left lung with loss of left lung volume and ipsilateral mediastinal shift. A few scattered pulmonary nodules, largest in the right lower lobe stable. Some of the nodules are calcified and likely granulomas. No new nodules visualized. Reactive pretracheal lymph nodes are the same size but minimal fullness in some of the nodes measuring 1 cm. They are suspicious. She is concerned about residual disease. She had a PET scan on 12/04 which revealed: 1. Nodular opacities in the right lower lobe appear similar or slightly less prominent than on the 01/16/[address] scan and show only weak FDG activity most suggestive of an inflammatory process. The appearance is not significantly changed from the recent 11/20/[address] scan. 2. Extensive postsurgical changes in the right lung and chest wall are noted with only weakly associated FDG activity likely due to some mild postoperative inflammatory changes. 3. There are no abnormalities suspicious for metastatic or recurrent malignancy. 4. Cholelithiasis. 5. Vascular calcifications including coronary. She is feeling some difficulty breathing on exertion. She is on home O2 now. She had a CT scan of the chest on 04/09: 1. Postsurgical changes left upper lobe with loss of left lung volume and adjacent consolidation. There is left apical and left posterior basilar pleural thickening with dense pleural calcification. 2. Bilateral pulmonary nodules are stable. There is now a bandlike parenchymal density in the left lower lobe surrounding the left lower lobe nodule likely scarring or atelectasis. 3. No abnormal mediastinal or axillary lymph nodes seen. PLAN: Will send the cat scan results over to Dr. Byrne for his review as well. She will have short interval repeat CT scan in 3 months time, to follow the pulmonary nodules.. She will return here in 3 months for a followup visit. She will continue to follow up with Dr. Carmona, for her pulmonary issues. However, she will call, in case of symptoms. Thank you, CC: Dr. Laury Soto. Dr. Neftaly Carmona. Dr. Pete Byrne. (2) Erythrocytosis Status: Acute Assessment and plan: 2. POLYCYTHEMIA: Most likely related to her underlying pulmonary hypertension. In the meantime, her hemoglobin is within normal limit range. She had her phlebotomy, on February 24 2018. Her hemoglobin is normal now so she does not need further phlebotomy. Hemoglobin today's 14.5. Hematocrit 45. PLAN: Will continue to monitor. - Time Spent With Patient Time Spent with Patient (in minutes): 27
[2022-04-16 10:42] VITALS: BP 100/60; PULSE 88; RESP 14; TEMP 36; O2SAT 91; BMI 26.2
--- NOTE | 2022-04-16 12:09 | MHC.HEMONCMA ---
Pt was in for follow up. Clinical summary reviewed and updated, VSS. Pt to return in 3 months.
== END 2022-06-02 | disposition home or self-care (01) ==
LOC: HO.ONC 10:20
PROVIDERS: PCP Internal Medicine; Visit Provider Internal Medicine Medical Oncology
DX: Z85.118 Personal history of other malignant neoplasm of bronchus and lung (principal); D75.1 Secondary polycythemia; R91.8 Other nonspecific abnormal finding of lung field; I27.20 Pulmonary hypertension, unspecified; J43.9 Emphysema, unspecified; Z79.899 Other long term (current) drug therapy; Z92.3 Personal history of irradiation; Z92.21 Personal history of antineoplastic chemotherapy; Z99.81 Dependence on supplemental oxygen
CPT/HCPCS: 36415; 80053; 82378; 84550; 85025; 96360; 96361; 99213; 99214

== ENCOUNTER → 2022-04-26 09:43 | Outpatient (BNVA) | payer MEDICARE, MEDICAID, SELFPAY | PROVIDERS: PCP Internal Medicine; Visit Provider Hospitalist | DX: J44.0 Chronic obstructive pulmonary disease with (acute) lower respiratory infection (principal); J96.11 Chronic respiratory failure with hypoxia; R91.1 Solitary pulmonary nodule; I27.20 Pulmonary hypertension, unspecified; G47.33 Obstructive sleep apnea (adult) (pediatric); Z85.118 Personal history of other malignant neoplasm of bronchus and lung; Z79.899 Other long term (current) drug therapy; Z92.21 Personal history of antineoplastic chemotherapy; Z92.3 Personal history of irradiation | CPT/HCPCS: 94618; 99212 ==

== ENCOUNTER 2022-06-01 00:29 | Inpatient (IN) | payer MEDICARE, MEDICAID, SELFPAY ==
[2022-06-01] VITALS (17 sets, daily range): BP systolic 84–142; BP diastolic 55–96; PULSE 105–125; RESP 16–26; TEMP 36.3–37.3; O2SAT 92–99; BMI 25.2
--- NOTE | 2022-06-01 | ECG_ITS ---
Test Reason : chest pain Blood Pressure : / mmHG Vent. Rate : 124 BPM Atrial Rate : 000 BPM P-R Int : 000 ms QRS Dur : 108 ms QT Int : 334 ms P-R-T Axes : 000 093 -65 degrees QTc Int : 479 ms Supraventricular tachycardia Rightward axis Marked ST abnormality, possible inferior subendocardial injury Abnormal ECG When compared with ECG of 28-MAY-2018 14:13, Supraventricular tachycardia is now Present Referred By: Generic ED Physician Electronically Signed By:Esequiel Palacio
--- NOTE | ~2022-06-01 | XR_ITS ---
EXAMINATION: XR CHEST CLINICAL INFORMATION: Short of breath COMPARISON: 01/02/2021 TECHNIQUE: Frontal view of the chest was obtained. FINDINGS: Cardiac leads overlie the chest. Chronic left midlung scarring with tenting of the left hemidiaphragm. There is no dense consolidation. Mild bronchial wall thickening noted. No pneumothorax or pleural effusion. The cardiomediastinal silhouette is unchanged, with a calcified aorta. XR/XR chest 1V IMPRESSION: No dense consolidation. Bronchial wall thickening can be seen with a small airways process such as asthma or atypical/viral infection. Chronic changes in the left lung.
--- NOTE | ~2022-06-01 | CT_ITS ---
EXAMINATION: CT CHEST WITHOUT CONTRAST CLINICAL INFORMATION: Dyspnea COMPARISON: 04/09/2022 TECHNIQUE: Multidetector volumetric CT imaging of the chest was done. Axial MIP volume rendering provided. Sagittal and coronal reformatted images were obtained. This CT examination was performed using dose optimization techniques as appropriate, variously including the following: *Automated exposure control *Adjustment of mA and/or kV according to patient size (this includes techniques or standardized protocols for targeted exams where dose is matched to indication/reason for exam; i.e. extremities or head) *Use of iterative reconstruction technique DLP: 207 mGy-cm FINDINGS: GOVERNMENT SERVICES PROFESSIONAL: Chronic changes of the left lung again noted. LUNGS: Motion limited. The central airways are patent. Moderate centrilobular and paraseptal emphysema. Suture line in the left upper lobe. Area of consolidation surrounds the suture lines. This is unchanged. Peripheral posterior opacification of the right lower lobe is also unchanged. MEDIASTINUM: Normal heart size. Coronary artery calcifications. No pericardial effusion. No mediastinal lymphadenopathy. The thyroid gland is unremarkable. CORONARY ARTERY CALCIFICATION: Present PLEURA: There is no pleural effusion. No pleural mass or thickening. No pneumothorax. AXILLA/CHEST WALL: No lymphadenopathy. Chronic changes along the posterior left chest wall with multiple absent sections of ribs and chest wall deformity. UPPER ABDOMEN: Unremarkable. OSSEOUS STRUCTURES: No acute or suspicious osseous abnormality. Mild degenerative changes in the spine. Chronic deformity of the left chest wall which appears to be postsurgical. CT/CT chest wo IV con IMPRESSION: 1. Chronic changes of the left lung. No acute pulmonary finding. Moderate emphysema. Chronic changes posteriorly in the right lung as well. 2. Coronary artery calcifications. Correlation with cardiac risk factors is recommended. Fleischner guidelines were followed.
[2022-06-01 01:22] LABS: Hematocrit 44.3 % (37.0-47.0); Hemoglobin 14.2 g/dl (12.0-16.0); Mean Corpuscular HGB Conc 32.1 g/dl (31.0-35.0); Mean Corpuscular Volume 77.9 fL (80.0-98.0); Mean Platelet Volume 8.4 fL (9.4-12.3); Platelet Count 258 X10*3/uL (160-400); Red Blood Count 5.69 X10*6/uL (4.20-5.50); Red Cell Distribution Width 21.3 % (11.0-16.0); White Blood Count 9.1 X10*3/uL (4.8-10.8)
[2022-06-01 01:38] LABS: COVID-19 Test Negative (Negative); IDNOW Serial# 6674DD1D
[2022-06-01 01:39] LABS: IDNOW Serial# 55D5AD1C; Influenza A Negative (Negative); Influenza B2 Negative (Negative)
[2022-06-01 01:43] LABS: Alanine Aminotransferase 21 U/L (0-31); Alkaline Phosphatase 87 U/L (39-117); Anion Gap 20 (12-20); Aspartate Amino Transferase 28 U/L (5-31); Bilirubin Total 1.3 mg/dL (0.0-1.0); Blood Urea Nitrogen 25 mg/dL (9-16); Calcium 9.9 mg/dL (8.4-10.2); Carbon Dioxide 22 mmol/L (22-29); Chloride 106 mmol/L (96-108); Creatinine Clr Calc Pharmacy 37.7; Estimated Glomerular Filt Rate 36; Glucose Random 128 mg/dL (60-115); Potassium 3.6 mmol/L (3.3-5.1); Sodium 144 mmol/L (135-145); Total Protein 7.2 g/dL (6.5-8.0)
[2022-06-01 01:45] LABS: Troponin-I High Sensitivity < 3.5 ng/L (<3.5-17.0)
--- NOTE | 2022-06-01 02:03 | ED_ITS ---
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 Related Data Home Medications Medication Instructions Recorded Confirmed albuterol sulfate 90 mcg/actuation 90 mcg inhalation DAILY 02/17/20 04/16/22 aerosol inhaler potassium chloride 20 mEq 60 meq PO DAILY 04/18/20 04/16/22 tablet,extended release(part/cryst) furosemide 20 mg tablet 100 mg PO DAILY 09/25/20 04/16/22 riociguat 2.5 mg tablet 2.5 mg PO TID 09/25/20 04/16/22 macitentan 10 mg tablet 10 mg PO DAILY 02/01/21 04/16/22 selexipag 600 mcg tablet 600 mcg PO BID 06/18/21 04/16/22 nebulizers 01/15/22 04/16/22 Oxygen Home Use 04/26/22 Previous Rx's Medication Instructions Recorded digoxin 125 mcg (0.125 mg) tablet 125 mcg PO DAILY #90 tabs 11/08/21 levalbuterol HCl 1.25 mg/3 mL 1.25 mg (3 mL) inhalation Q6H PRN 01/15/22 solution for nebulization wheezing #90 mL simvastatin 20 mg tablet 20 mg PO BEDTIME #90 tabs 01/28/22 lorazepam 0.5 mg tablet 0.5 mg PO DAILY PRN Anxiety #30 04/16/22 tabs Daliresp 250 mcg tablet 250 mcg PO DAILY #28 tabs 05/06/22 (roflumilast) azithromycin 250 mg tablet See Rx Instructions .Route 05/29/22 .COMPLEX #12 tabs Allergies Allergy/AdvReac Type Severity Reaction Status Date / Time cephalexin Allergy Severe rash Verified 04/16/22 10:47 Beta-Blockers AdvReac Intermediate SHORTNESS Verified 04/16/22 10:47 (Beta-Adrenergic Bloc OF BREATH Review of Systems Review of Systems: Yes all other systems are reviewed and are negative [facility] Past Medical History Medical History Calcinosis Chronic respiratory failure with hypoxia COPD (chronic obstructive pulmonary disease) Gout Hx of cancer of lung (~2004) Lymphadenopathy Non-small cell lung cancer (~2004) BERTIN (obstructive sleep apnea) Pulmonary hypertension Pulmonary nodule Raynaud's disease without gangrene Right heart failure SVT (supraventricular tachycardia) Surgical History History of cardiac cath (~2017) History of colonoscopy (~2020) History of lobectomy of lung (~2006) History of right hip replacement (~2013) History of thoracic surgery (~2004) Family History Family History Father Lung cancer Mother CVD (cardiovascular disease) Social History Social History Household Members: Spouse Housing: House Are you a primary career counselor to a significant other at home: No Do you presently have visiting nurse or other home services: No Alcohol intake: former Patient Tobacco Use Status: Former Tobacco user Quit Date: 2004 Tobacco use type: Cigarette e-Cigarette/Vaping Use: Never Used Advance Directives: No service: No Current occupational status: retired Physical Exam Vital Signs: Vital Signs: Last Vital Signs Temp 97.5 F 06/01/22 07:17 Pulse 114 H 06/01/22 07:17 Resp 19 06/01/22 07:17 BP 92/70 06/01/22 07:17 Pulse Ox 97 06/01/22 07:17 O2 Del Method 06/01/22 07:17 O2 Flow Rate 4 06/01/22 07:17 Oxygen Flow Rate 4 06/01/22 00:42 BMI result Body Mass Index 25.2 Appearance: Alert. Oriented X3. No acute distress. Eyes: no pallor or icterus ENT: Pharynx normal. Oral Mucosa moist Neck: Normal inspection. Neck supple. CVS: Normal heart rate and rhythm. Pulses normal. Respiratory: No respiratory distress. Equal air entry bilateral, no wheezing/rales/rhonchi prolonged expiration decreased air entry bilateral postsurgical changes left lung Abdomen: Soft and nontender. Bowel sounds are present, no mass palpable, no CVA tenderness Skin: Skin warm and dry. Normal skin color. Normal skin turgor. Extremities: 4 + lower extremity edema. No calf tenderness Neuro: Oriented X 3. No motor deficit. No sensory deficit.No cerebellar signs , cranial nerves II-XII intact Medications Administered Discontinued Medications Generic Name Dose Route Start Last Admin Trade Name Freq PRN Reason Stop Dose Admin Albuterol Sulfate 2.5 mg/ 0 mg 06/01/22 02:15 06/01/22 02:26 Ipratropium [place] 0.5 mg INHALE 06/01/22 02:16 1 each ONCE ONE Administration Furosemide 20 mg 06/01/22 04:12 06/01/22 04:23 Furosemide 20 Mg/2 Ml Vial IVPUSH 06/01/22 04:13 20 mg ONCE ONE Administration Protocol Sodium Chloride 500 mls @ 250 mls/hr 06/01/22 05:13 06/01/22 05:40 Ns IVCONT 06/01/22 07:12 250 mls/hr .Q2H ONE Administration Methylprednisolone Sodium Succinate 125 mg 06/01/22 02:15 06/01/22 02:28 Methylprednisolone Sod Succ 125 Mg/2 Ml Vial IVPUSH 06/01/22 02:16 125 mg ONCE ONE Administration Medical Decision Making Medical Decision Making [facility] Narrative: Patient with acute increased shortness of breath with chronic lung condition/lung cancer/diastolic heart failure with increased leg edema and CKD with elevated BNP will admit patient for IV diuresis. Differential Diagnosis Pneumonia/CHF/pneumothorax/COPD/asthma/pleural effusion Consult Healthcare Provider Management of the patient was discussed with: Hospitalist Lab Data [facility] Lab Attestation statement: I reviewed the patient's lab results. 06/01/22 01:05 06/01/22 01:05 Labs: Lab Results 06/01/22 06/01/22 06/01/22 Range/Units 01:05 01:05 01:05 WBC 9.1 (4.8-10.8) X10*3/uL RBC 5.69 H (4.20-5.50) X10*6/uL Hgb 14.2 (12.0-16.0) g/dl Hct 44.3 (37.0-47.0) % MCV 77.9 L (80.0-98.0) fL MCH 25.0 L (27.0-33.0) pg MCHC 32.1 (31.0-35.0) g/dl RDW 21.3 H (11.0-16.0) % Plt Count 258 (160-400) X10*3/uL MPV 8.4 L (9.4-12.3) fL Absolute Nucleated RBC 0.000 (0.0-0.012) X10*3/uL Nucleated RBC % (auto) 0.0 (0.0-0.2) /100WBC Sodium 144 (135-145) mmol/L Potassium 3.6 (3.3-5.1) mmol/L Chloride 106 (96-108) mmol/L Carbon Dioxide 22 (22-29) mmol/L Anion Gap 20 (12-20) BUN 25 H (9-16) mg/dL Creatinine 1.45 H (0.5-1.4) mg/dL Estim Creat Clear Calc 37.7 Estimated GFR 36 Random Glucose 128 H (60-115) mg/dL Calcium 9.9 (8.4-10.2) mg/dL Total Bilirubin 1.3 H (0.0-1.0) mg/dL AST 28 (5-31) U/L ALT 21 (0-31) U/L Alkaline Phosphatase 87 (39-117) U/L Troponin I High Sens (<3.5-17.0) ng/L B-Natriuretic Peptide (<100) pg/mL Total Protein 7.2 (6.5-8.0) g/dL Albumin 4.0 (3.5-5.0) g/dL COVID-19 (DIEGO) (Negative) COVID-19 Clin Com Influenza Type A (CECIL) Negative (Negative) Influenza Type B (CECIL) Negative (Negative) Influenza A & B Note See Note 06/01/22 06/01/22 06/01/22 Range/Units 01:05 01:05 01:05 WBC (4.8-10.8) X10*3/uL RBC (4.20-5.50) X10*6/uL Hgb (12.0-16.0) g/dl Hct (37.0-47.0) % MCV (80.0-98.0) fL MCH (27.0-33.0) pg MCHC (31.0-35.0) g/dl RDW (11.0-16.0) % Plt Count (160-400) X10*3/uL MPV (9.4-12.3) fL Absolute Nucleated RBC (0.0-0.012) X10*3/uL Nucleated RBC % (auto) (0.0-0.2) /100WBC Sodium (135-145) mmol/L Potassium (3.3-5.1) mmol/L Chloride (96-108) mmol/L Carbon Dioxide (22-29) mmol/L Anion Gap (12-20) BUN (9-16) mg/dL Creatinine (0.5-1.4) mg/dL Estim Creat Clear Calc Estimated GFR Random Glucose (60-115) mg/dL Calcium (8.4-10.2) mg/dL Total Bilirubin (0.0-1.0) mg/dL AST (5-31) U/L ALT (0-31) U/L Alkaline Phosphatase (39-117) U/L Troponin I High Sens < 3.5 (<3.5-17.0) ng/L B-Natriuretic Peptide 779 H (<100) pg/mL Total Protein (6.5-8.0) g/dL Albumin (3.5-5.0) g/dL COVID-19 (DIEGO) Negative (Negative) COVID-19 Clin Com See Note Influenza Type A (CECIL) (Negative) Influenza Type B (CECIL) (Negative) Influenza A & B Note Independent Interpretation I performed an independent interpretation of an: EKG Interpretation: Junctional rhythm with heart rate of 124 beats per minute rightward axis incomplete right bundle-branch block nonspecific ST-T changes , ST depression in inferolateral leads Discharge Plan Discharge Clinical Impression: Chronic respiratory failure with hypoxia, Congestive heart failure Patient Disposition: Admitted As Inpatient
[2022-06-01] MEDS: methylPREDNISolone Sod Succ 125 MG/2 ML VIAL IVPUSH (02:28)
--- NOTE | 2022-06-01 02:35 | PC.NURSE ---
pt took home medication digoxin, Aware
[2022-06-01 02:44] LABS: B Type Natriuretic Peptide 779 pg/mL (<100)
[2022-06-01] MEDS: Furosemide 20 MG/2 ML VIAL IVPUSH (04:23)
[2022-06-01] MEDS: 0.9 % Sodium Chloride 500 ML 250 ML IVCONT (05:40)
--- NOTE | 2022-06-01 08:41 | PC.NURSE ---
Addendum entered by Bubba Emanuel 06/01/22 08:43: pt maintaining tripod position over bedside table to assist in comfort breathing. Original Note: pt able to ambulate over to commode on own w standy by assist, having significant increase in work of breathing while exerting. bp maintaining after decrease r/t iv lasix admin. remains tachy on monitor 110-120bpm. visitor at bedside. awaiting hospitalist nicole manrique am.
--- NOTE | 2022-06-01 10:19 | PHA.MEDREC ---
Pharmacy Consult ? Medication Reconciliation Pharmacy has completed the medication reconciliation. Patient is a good historian and was able to review her medications with me. She knew the names and doses. She also has her Adempas (riociguat) and Uptravi (selexipag) with her because she knows they are hard to find. Although the md didn't want her on them because her pressure is still very low, we may need to get those from her if they continue them later.
--- NOTE | 2022-06-01 10:58 | PM.CNCAR ---
History of Present Illness History of Present Illness Date of Service: 06/01/22 Requesting physician: Stephen Moya Chief complaint: right side heart failure, SVT Narrative: [age] year female with background history of non-small cell lung cancer, COPD, pulmonary hypertension, right-sided heart failure and supraventricular tachycardia. She had pulmonary hypertension and has been following at [facility] with Dr. Ocampo and has been on Riociguat and Selexipag. She previously had supraventricular tachycardia and was on bisoprolol and diltiazem. It appears bisoprolol was stop and also diltiazem has been stopped too. She is on digoxin 125 mcg at bedtime daily. She is now presenting with 2-3 days of shortness of breath, peripheral edema and palpitations. She has noticed to be in supraventricular tachycardia. She does not have a digoxin level back currently. I tried bedside maneuvers including carotid sinus massage and she broke out of the SVT but went right back. We had also tried 6 mg of adenosine which again broke the SVT but she went back into SVT. She has advanced lung disease as mentioned above. [facility] Past Medical History Medical History Calcinosis Chronic respiratory failure with hypoxia COPD (chronic obstructive pulmonary disease) Gout Hx of cancer of lung (~2004) Lymphadenopathy Non-small cell lung cancer (~2004) BERTIN (obstructive sleep apnea) Pulmonary hypertension Pulmonary nodule Raynaud's disease without gangrene Right heart failure SVT (supraventricular tachycardia) Family History Family History Father Lung cancer Mother CVD (cardiovascular disease) Surgical History Surgical History History of cardiac cath (~2017) History of colonoscopy (~2020) History of lobectomy of lung (~2006) History of right hip replacement (~2013) History of thoracic surgery (~2004) Social History Social History Household Members: Spouse Housing: House Are you a primary care clinician to a significant other at home: No Do you presently have visiting nurse or other home services: No Alcohol intake: never Patient Tobacco Use Status: Former Tobacco user Quit Date: 2004 Tobacco use type: Cigarette Smoked in Last 30 Days: No e-Cigarette/Vaping Use: Never Used Use of substances other than those prescribed or required for medical reasons: No Advance Directives: No service: No Current occupational status: retired Meds Allergies Allergy/AdvReac Type Severity Reaction Status Date / Time cephalexin Allergy Severe rash Verified 04/16/22 10:47 Beta-Blockers AdvReac Intermediate SHORTNESS Verified 04/16/22 10:47 (Beta-Adrenergic Bloc OF BREATH Active Medications: Current Medications Acetaminophen (Acetaminophen 325 Mg Tablet) 650 mg PO Q6H PRN PRN Reason: Pain, Mild (Pain Scale 1-3) Albuterol Sulfate (Albuterol Sulfate 90 Mcg 8 Gm Inhaler) 1 puff INHALE RDAILY ANGIE Atorvastatin Calcium (Atorvastatin Calcium 10 Mg Tablet) 10 mg PO BEDTIME ANGIE Azithromycin (Azithromycin 250 Mg Tablet) 250 mg PO MOWEFR ANGIE Digoxin (Digoxin 0.125 Mg Tablet) 0.125 mg PO BEDTIME ANGIE Enoxaparin Sodium (Enoxaparin Sodium 40 Mg/0.4 Ml Syringe) 40 mg SUBCUT Q24H ANGIE Furosemide (Furosemide 20 Mg Tablet) 60 mg PO DAILY ANGIE; Protocol Lorazepam (Lorazepam 0.5 Mg Tablet) 0.5 mg PO DAILY PRN PRN Reason: Anxiety Melatonin (Melatonin 3 Mg Tablet) 6 mg PO BEDTIME PRN PRN Reason: Insomnia Non-Formulary Medication (Urqczkixcx-Wlbzuwwc-Dhmaiyvair [Breztri Aerosphere]) 2 puff INHALE DAILY ANGIE Non-Formulary Medication (Levalbuterol Hcl) 1.25 mg INHALE Q6H PRN PRN Reason: wheezing Non-Formulary Medication (Riociguat) 2.5 mg PO TID ANGIE Non-Formulary Medication (Roflumilast [Daliresp]) 250 mcg PO DAILY ANGIE Non-Formulary Medication (Selexipag) 600 mcg PO BID ANGIE Ondansetron HCl (Ondansetron Hcl 4 Mg/2 Ml Vial) 4 mg IVPUSH Q8H PRN PRN Reason: Nausea and Vomiting Pharmacy Consult (Consult Rx Perform Med Rec) 1 each MISCELLANE ONCE PRN PRN Reason: Consult order Potassium Chloride (Potassium Chloride Er 20 Meq Tab.Er.Prt) 20 meq PO TID [facility] Sodium Chloride (0.9 % Sodium Chloride Flush 3 Ml Syringe) 3 ml IVFLUSH QSHIFT [facility] Home Medications Medication Instructions Recorded Confirmed Last Taken Type albuterol sulfate 90 mcg/actuation 90 mcg inhalation DAILY 02/17/20 06/01/22 05/31/22 History aerosol inhaler potassium chloride 20 mEq 20 meq PO TID 04/18/20 06/01/22 05/31/22 History tablet,extended release(part/cryst) furosemide 20 mg tablet 60 mg PO DAILY 09/25/20 06/01/22 05/31/22 History riociguat 2.5 mg tablet 2.5 mg PO TID 09/25/20 06/01/22 05/31/22 History selexipag 600 mcg tablet 600 mcg PO BID 06/18/21 06/01/22 05/31/22 History nebulizers 01/15/22 04/16/22 Unknown History Oxygen Home Use 04/26/22 Unknown History azithromycin 250 mg tablet 250 mg PO MOWEFR 06/01/22 06/01/22 05/29/22 History budesonide 160 mcg-glycopyr 9 2 puff inhalation DAILY 06/01/22 06/01/22 05/31/22 History mcg-formot 4.8 mcg/actuation HFA inhaler ([employer]) digoxin 125 mcg (0.125 mg) tablet 125 mcg PO BEDTIME 06/01/22 06/01/22 05/31/22 History Physical Exam Vital Signs: Vital Signs: Last Vital Signs Temp 97.5 F 06/01/22 07:17 Pulse 121 H 06/01/22 08:27 Resp 24 H 06/01/22 08:27 BP 97/64 06/01/22 08:27 Pulse Ox 95 06/01/22 08:27 O2 Del Method 06/01/22 08:27 O2 Flow Rate 4 06/01/22 08:27 Oxygen Flow Rate 4 06/01/22 00:42 BMI result Body Mass Index 25.2 GENERAL APPEARANCE: Short of breath, frail. NECK: no carotid bruit, positive jugular venous distention. SKIN: no suspicious lesions, warm and dry. HEART: Holosystolic murmur left sternal border, regular rate and rhythm. Tachycardic. Left parasternal heave LUNGS: Few crackles bases. ABDOMEN: soft, nontender. EXTREMITIES: +1 edema. PERIPHERAL PULSES: equal. NEUROLOGIC: No gross deficits, AAO X 3 Objective Labs and Meds 06/01/22 01:05 06/01/22 01:05 Lab results: Laboratory Results - last 24 hr 06/01/22 06/01/22 06/01/22 01:05 01:05 01:05 WBC 9.1 RBC 5.69 H Hgb 14.2 Hct 44.3 MCV 77.9 L MCH 25.0 L MCHC 32.1 RDW 21.3 H Plt Count 258 MPV 8.4 L Absolute Nucleated RBC 0.000 Nucleated RBC % (auto) 0.0 Sodium 144 Potassium 3.6 Chloride 106 Carbon Dioxide 22 Anion Gap 20 BUN 25 H Creatinine 1.45 H Estim Creat Clear Calc 37.7 Estimated GFR 36 Random Glucose 128 H Calcium 9.9 Total Bilirubin 1.3 H AST 28 ALT 21 Alkaline Phosphatase 87 Troponin I High Sens B-Natriuretic Peptide Total Protein 7.2 Albumin 4.0 COVID-19 ([facility]IEGO) COVID-19 Clin Com Influenza Type A (CECIL) Negative Influenza Type B (CECIL) Negative Influenza A & B Note See Note 06/01/22 06/01/22 06/01/22 01:05 01:05 01:05 WBC RBC Hgb Hct MCV MCH MCHC RDW Plt Count MPV Absolute Nucleated RBC Nucleated RBC % (auto) Sodium Potassium Chloride Carbon Dioxide Anion Gap BUN Creatinine Estim Creat Clear Calc Estimated GFR Random Glucose Calcium Total Bilirubin AST ALT Alkaline Phosphatase Troponin I High Sens < 3.5 B-Natriuretic Peptide 779 H Total Protein Albumin COVID-19 (DIEGO) Negative COVID-19 Clin Com See Note Influenza Type A (CECIL) Influenza Type B (CECIL) Influenza A & B Note Imaging Radiologist's impression: Impressions Chest X-Ray 06/01/22 01:20 IMPRESSION: No dense consolidation. Bronchial wall thickening can be seen with a small airways process such as asthma or atypical/viral infection. Chronic changes in the left lung. Chest CT 06/01/22 05:25 IMPRESSION: 1. Chronic changes of the left lung. No acute pulmonary finding. Moderate emphysema. Chronic changes posteriorly in the right lung as well. 2. Coronary artery calcifications. Correlation with cardiac risk factors is recommended. Fleischner guidelines were followed. Assessment and Plan (1) Congestive heart failure: Status: Acute (2) Pulmonary hypertension: Status: Acute (3) Right heart failure: Status: Acute (4) SVT (supraventricular tachycardia): Status: Acute Plan Pleasant 66-year-old female with complex cardiovascular issues presenting for lower extremity edema breath. She has noticed to be in SVT. Clinically volume overloaded. Bedside carotids massages and 6 mg adenosine was tried. Both broke the SVT but she went back into it instantly. She is volume overloaded currently. Please start Lasix 40 mg IV b.i.d.. Monitor electrolytes closely. I have added a digoxin level. If digoxin level is 1 or higher digoxin should be stopped. Once diuresed all tried carotid massage again to see if she breaks and stays out of this rhythm. If not then will try short term amiodarone. Given RV dysfunction previously I will try to avoid IV beta blockers or diltiazem currently. Her pulmonary hypertension medications should be continued. We will follow along with you. Please request an echocardiogram. Thank you for allowing me to participate in the care of your patient. Please feel free to contact me if you have any questions. Time Spent With Patient Time: Total time managing care of this patient today ____ minutes. Procedures Date of Service Date of Service: 06/01/22
[2022-06-01] MEDS: Adenosine 6 MG/2 ML VIAL IVPUSH (11:24)
[2022-06-01] MEDS: Enoxaparin Sodium 40 MG/0.4 ML SYRINGE SUBCUT (12:10)
[2022-06-01] MEDS: Potassium Chloride ER 20 MEQ TAB.ER.PRT PO ×3 (12:11→19:58)
--- NOTE | 2022-06-01 12:20 | PC.NURSE ---
ASSUMED CARE OF THIS PT. MEDICATED PER EMR, DC ADENOSINE ORDER PRIOR TO PER MD [place]. PT COMFORTABLE AT REST, DYSPNEIC AT BASELINE, THOUGH STATES SIGNIFICANTLY WORSE WITH ANY MOVEMENT. CURRENTLY REQUIRING MORE SUPP O2 THAN AT HOME, ON 4L AT THIS TIME, SPO2 98%, PT SPEAKING IN CLEAR FULL SENTENCES. A&OX4. DENIES CP AT THIS TIME, HR 110, MAP 81. TYPICALLY INDEPENDENT AT HOME, NOT REQUIRING ANY ASSISTIVE DEVICES.
[2022-06-01 12:28] LABS: Digoxin 0.7 ng/mL (0.8-2.0)
--- NOTE | 2022-06-01 13:12 | P.HPHOSP_ITS ---
History of Present Illness Date of Service: 06/01/22 Chief Complaint: shortness of breath 66/F with non-small cell lung cancer, COPD, pulmonary hypertension, right-sided heart failure and supraventricular tachycardia, COPD on nocturnal O2, . She presented with increasing shortness of worse with activity and has noted signficant increase in leg edema and lately has adjusted her oxygen from 2 liters to now 4 and using it contantly rather just using at night only.. The symptoms have more pronounced the last 3 days and impairing her daily and thus presented to the ED where she's noted to have markedly increased leg edema. She was noted to be in slow SVT by cardiology and was managed with carotid massage, adenosine and broke transiently but has since reverted back Review of Systems Review of Systems: Gen: no fever Resp: no sob, no cough CV: no chest, +GONSALES, +leg edema GI: No n/v, no abd pain Neuro: No confusion Yes all other systems are reviewed and are negative [facility] Medical History Calcinosis Chronic respiratory failure with hypoxia COPD (chronic obstructive pulmonary disease) Gout Hx of cancer of lung (~2004) Lymphadenopathy Non-small cell lung cancer (~2004) BERTIN (obstructive sleep apnea) Pulmonary hypertension Pulmonary nodule Raynaud's disease without gangrene Right heart failure SVT (supraventricular tachycardia) Family History Father Lung cancer Mother CVD (cardiovascular disease) Surgical History History of cardiac cath (~2017) History of colonoscopy (~2020) History of lobectomy of lung (~2006) History of right hip replacement (~2013) History of thoracic surgery (~2004) Social History Household Members: Spouse Housing: House Are you a primary personal care worker to a significant other at home: No Do you presently have visiting nurse or other home services: No Alcohol intake: never Patient Tobacco Use Status: Former Tobacco user Quit Date: 2004 Tobacco use type: Cigarette e-Cigarette/Vaping Use: Never Used service: No Current occupational status: retired Meds Allergies Allergy/AdvReac Type Severity Reaction Status Date / Time cephalexin Allergy Severe rash Verified 04/16/22 10:47 Beta-Blockers AdvReac Intermediate SHORTNESS Verified 04/16/22 10:47 (Beta-Adrenergic Bloc OF BREATH Active Medications: Current Medications Acetaminophen (Acetaminophen 325 Mg Tablet) 650 mg PO Q6H PRN PRN Reason: Pain, Mild (Pain Scale 1-3) Albuterol Sulfate (Albuterol Sulfate 90 Mcg 8 Gm Inhaler) 1 puff INHALE RDAILY ANGIE Atorvastatin Calcium (Atorvastatin Calcium 10 Mg Tablet) 10 mg PO BEDTIME ANGIE Azithromycin (Azithromycin 250 Mg Tablet) 250 mg PO MoWeFr@0900 [facility] Digoxin (Digoxin 0.125 Mg Tablet) 0.125 mg PO BEDTIME [facility] Enoxaparin Sodium (Enoxaparin Sodium 40 Mg/0.4 Ml Syringe) 40 mg SUBCUT Q24H [facility] Last Admin: 06/01/22 12:10 Dose: 40 mg Furosemide (Furosemide 20 Mg Tablet) 60 mg PO DAILY [facility]; Protocol Furosemide (Furosemide 40 Mg/4 Ml Vial) 40 mg IVPUSH BID@0900,1800 [facility]; Protocol Levalbuterol HCl (Levalbuterol Hcl 1.25 Mg/0.5 Ml Vial.Neb) 1.25 mg INHALE RQ6H PRN PRN Reason: wheezing Lorazepam (Lorazepam 0.5 Mg Tablet) 0.5 mg PO DAILY PRN PRN Reason: Anxiety Melatonin (Melatonin 3 Mg Tablet) 6 mg PO BEDTIME PRN PRN Reason: Insomnia Non-Formulary Medication (Ocowyqgpuo-Duvccles-Pycaqrzanr [Breztri Aerosphere]) 2 puff INHALE DAILY [facility] Non-Formulary Medication (Riociguat) 2.5 mg PO TID [facility] Non-Formulary Medication (Roflumilast [Daliresp]) 250 mcg PO DAILY [facility] Non-Formulary Medication (Selexipag) 600 mcg PO BID [facility] Ondansetron HCl (Ondansetron Hcl 4 Mg/2 Ml Vial) 4 mg IVPUSH Q8H PRN PRN Reason: Nausea and Vomiting Pharmacy Consult (Consult Rx Perform Med Rec) 1 each MISCELLANE ONCE PRN PRN Reason: Consult order Potassium Chloride (Potassium Chloride Er 20 Meq Tab.Er.Prt) 20 meq PO TID [facility] Last Admin: 06/01/22 12:11 Dose: 20 meq Sodium Chloride (0.9 % Sodium Chloride Flush 3 Ml Syringe) [facility] Medications Medication Instructions Recorded Confirmed Last Taken Type albuterol sulfate 90 mcg/actuation 90 mcg inhalation DAILY 02/17/20 06/01/22 05/31/22 History aerosol inhaler potassium chloride 20 mEq 20 meq PO TID 04/18/20 06/01/22 05/31/22 History tablet,extended release(part/cryst) furosemide 20 mg tablet 60 mg PO DAILY 09/25/20 06/01/22 05/31/22 History riociguat 2.5 mg tablet 2.5 mg PO TID 09/25/20 06/01/22 05/31/22 History selexipag 600 mcg tablet 600 mcg PO BID 06/18/21 06/01/22 05/31/22 History nebulizers 01/15/22 04/16/22 Unknown History Oxygen Home Use 04/26/22 Unknown History azithromycin 250 mg tablet 250 mg PO MOWEFR 06/01/22 06/01/22 05/29/22 History budesonide 160 mcg-glycopyr 9 2 puff inhalation DAILY 06/01/22 06/01/22 05/31/22 History mcg-formot 4.8 mcg/actuation HFA inhaler (Art-Exchangeztri EasySizephere) digoxin 125 mcg (0.125 mg) tablet 125 mcg PO BEDTIME 06/01/22 06/01/22 05/31/22 History Physical Exam Vital Signs and Narrative: Vital Signs: Last Vital Signs Temp 97.5 F 06/01/22 07:17 Pulse 110 H 06/01/22 12:08 Resp 20 06/01/22 12:08 BP 103/76 06/01/22 12:08 Pulse Ox 99 06/01/22 12:08 O2 Del Method 06/01/22 12:08 O2 Flow Rate 4 06/01/22 12:08 Oxygen Flow Rate 4 06/01/22 00:42 BMI result Body Mass Index 25.2 Const: Other: Constitutional: Alert, in no distress, Mental Status: Oriented to person, place and time. Eyes: Pupils are equal, round and reactive to light. Ear, Nose and Throat: Oropharynx clear, mucous membranes moist. Ears and nose without deformities. Trachea midline. Respiratory: Clear to auscultation. No wheezing, rales or rhonchi. Cardiovascular: S1 S2 regular. No murmurs, rubs or gallops. 3+ leg/edema Gastrointestinal: Abdomen soft, non-tender, non-distended. Normal bowel sounds.? Neurologic: Cranial nerves II-XII grossly intact. No focal neurological deficits. Moves all extremities spontaneously.? Skin: No rashes or lesions.? Musculoskeletal: No cyanosis or clubbing. Psychiatric: Normal mood and affect? Results Labs 06/01/22 01:05 06/01/22 01:05 Labs: Laboratory Results - last 24 hr 06/01/22 06/01/22 06/01/22 01:05 01:05 01:05 MCV 77.9 L MCH 25.0 L MCHC 32.1 RDW 21.3 H Plt Count 258 MPV 8.4 L Absolute Nucleated RBC 0.000 Nucleated RBC % (auto) 0.0 Anion Gap 20 Estim Creat Clear Calc 37.7 Estimated GFR 36 Random Glucose 128 H Calcium 9.9 Total Bilirubin 1.3 H AST 28 ALT 21 Alkaline Phosphatase 87 Troponin I High Sens B-Natriuretic Peptide Total Protein 7.2 Albumin 4.0 Digoxin COVID-19 ([facility]) COVID-19 Clin Com Influenza Type A (CECIL) Negative Influenza Type B (CECIL) Negative Influenza A & B Note See Note 06/01/22 06/01/22 06/01/22 01:05 01:05 01:05 MCV MCH MCHC RDW Plt Count MPV Absolute Nucleated RBC Nucleated RBC % (auto) Anion Gap Estim Creat Clear Calc Estimated GFR Random Glucose Calcium Total Bilirubin AST ALT Alkaline Phosphatase Troponin I High Sens < 3.5 B-Natriuretic Peptide 779 H Total Protein Albumin Digoxin COVID-19 ([facility]) Negative COVID-19 Clin Com See Note Influenza Type A ([facility]IL) Influenza Type B (CECIL) Influenza A & B Note 06/01/22 11:59 MCV MCH MCHC RDW Plt Count MPV Absolute Nucleated RBC Nucleated RBC % (auto) Anion Gap Estim Creat Clear Calc Estimated GFR Random Glucose Calcium Total Bilirubin AST ALT Alkaline Phosphatase Troponin I High Sens B-Natriuretic Peptide Total Protein Albumin Digoxin 0.7 L COVID-19 ([facility]) COVID-19 Clin Com Influenza Type A ([facility]IL) Influenza Type B (CECIL) Influenza A & B Note Imaging Radiologist's Impressions: Impressions Chest X-Ray 06/01/22 01:20 IMPRESSION: No dense consolidation. Bronchial wall thickening can be seen with a small airways process such as asthma or atypical/viral infection. Chronic changes in the left lung. Chest CT 06/01/22 05:25 IMPRESSION: 1. Chronic changes of the left lung. No acute pulmonary finding. Moderate emphysema. Chronic changes posteriorly in the right lung as well. 2. Coronary artery calcifications. Correlation with cardiac risk factors is recommended. Fleischner guidelines were followed. Assessment and Plan (1) SVT (supraventricular tachycardia): Status: Acute (2) Right heart failure: Status: Acute Plan ,66/f with h/o?non-small cell lung cancer, COPD, pulmonary hypertension, right- sided heart failure and supraventricular tachycardia here with exacerbation of right heart failure likely precipitated by uncontrolled SVT and less likely Copd exacerbtion 1/Acute right heart failure iv lasix 40 bid request echo 2/pulm HTN continue home meds 3/ SVT--cardiology advises avoiding CCB and BB at this time, check dig level and if needed may start short course of amio 4/copd, continue inhalers no exacerbation continue O2, pulmonolgy input noted, continue Azithr 3x/week 4/HLD statin dvt prophy lovenox Time Spent With Patient Time: Total time managing care of this patient today ____ minutes. Quality Stroke Does the patient have a stroke diagnosis?: No VTE Prior VTE?: No VTE Risk Level:: Medical - moderate - high VTE Device Contraindication: N/A - Device Ordered VTE Drug Contraindication: N/A - Med Ordered
--- NOTE | 2022-06-01 14:55 | PC.NURSE ---
report given to ciro wagner
[2022-06-01] MEDS: 0.9 % Sodium Chloride Flush 3 ML SYRINGE IVFLUSH (16:03)
[2022-06-01] MEDS: Digoxin 0.125 MG TABLET PO (19:57)
[2022-06-01] MEDS: LORazepam 0.5 MG TABLET PO (19:57)
[2022-06-01] MEDS: Atorvastatin Calcium 10 MG TABLET PO (19:58)
--- NOTE | 2022-06-01 20:12 | PC.NURSE ---
1949 Patient has a run of SVT in 160 and complaints of tightness in chest with shortness of breath MD notified, 2099 PO digoxin and ativan given.
[2022-06-01] MEDS: diphenhydrAMINE HCL 50 MG/ML VIAL IVPUSH (21:20)
--- NOTE | 2022-06-01 21:57 | P.CONPL_ITS ---
History of Present Illness History of Present Illness Consult date: 06/01/22 Chief complaint: right side heart failure, SVT Narrative: This is an in patient pulmonary consultation. The patient is 66/F with non-small cell lung cancer with recurrance s/p XBRT, COPD, severe pulmonary hypertension, right-sided heart failure and supraventricular tachycardia, COPD? on nocturnal O2, . She presented with increasing shortness of? worse with activity and has noted signficant increase in leg edema and lately? has adjusted her oxygen from 2 liters to now 4 and using it contantly rather just using at night only.. The symptoms have more pronounced the last? 3 days and impairing her daily and thus presented to the ED where she's noted to have markedly increased leg edema. She was noted to be in slow SVT by cardiology and was managed with carotid massage, adenosine and broke transiently but has since reverted back. The patient is feeling a little better. Her HR is still elevated and BP's have been in the 90's sytolic. Therefore she is off her vasodilators. at this time. I personallt revie wed her CT chest with chronic fibrotic changes. Review of Systems Review of Systems: Gen: no fever Resp: no sob, no cough CV: no chest, +GONSALES, +leg edema GI: No n/v, no abd pain Neuro: No confusion Yes all other systems are reviewed and are negative [facility] Past Medical History Medical History Calcinosis Chronic respiratory failure with hypoxia COPD (chronic obstructive pulmonary disease) Gout Hx of cancer of lung (~2004) Lymphadenopathy Non-small cell lung cancer (~2004) BERTIN (obstructive sleep apnea) Pulmonary hypertension Pulmonary nodule Raynaud's disease without gangrene Right heart failure SVT (supraventricular tachycardia) Family History Family History Father Lung cancer Mother CVD (cardiovascular disease) Surgical History Surgical History History of cardiac cath (~2017) History of colonoscopy (~2020) History of lobectomy of lung (~2006) History of right hip replacement (~2013) History of thoracic surgery (~2004) Social History Social History Household Members: Spouse Housing: House Are you a primary ostomy care nurse to a significant other at home: No Do you presently have visiting nurse or other home services: No Alcohol intake: never Patient Tobacco Use Status: Former Tobacco user Quit Date: 2004 Tobacco use type: Cigarette e-Cigarette/Vaping Use: Never Used service: No Current occupational status: retired Meds Allergies Allergy/AdvReac Type Severity Reaction Status Date / Time cephalexin Allergy Severe rash Verified 04/16/22 10:47 Beta-Blockers AdvReac Intermediate SHORTNESS Verified 04/16/22 10:47 (Beta-Adrenergic Bloc OF BREATH Active Medications: Current Medications Acetaminophen (Acetaminophen 325 Mg Tablet) 650 mg PO Q6H PRN PRN Reason: Pain, Mild (Pain Scale 1-3) Albuterol Sulfate (Albuterol Sulfate 90 Mcg 8 Gm Inhaler) 1 puff INHALE RDAILY ANGIE Atorvastatin Calcium (Atorvastatin Calcium 10 Mg Tablet) 10 mg PO BEDTIME ANGIE Last Admin: 06/01/22 19:58 Dose: 10 mg Azithromycin (Azithromycin 250 Mg Tablet) 250 mg PO MoWeFr@0900 [facility] Digoxin (Digoxin 0.125 Mg Tablet) 0.125 mg PO BEDTIME ANG[facility] Last Admin: 06/01/22 19:57 Dose: 0.125 mg Enoxaparin Sodium (Enoxaparin Sodium 40 Mg/0.4 Ml Syringe) 40 mg SUBCUT Q24H [facility]GIE Last Admin: 06/01/22 12:10 Dose: 40 mg Furosemide (Furosemide 40 Mg/4 Ml Vial) 40 mg IVPUSH BID@0900,1800 [facility]; Protocol Last Admin: 06/01/22 18:03 Dose: Not Given Levalbuterol HCl (Levalbuterol Hcl 1.25 Mg/0.5 Ml Vial.Neb) 1.25 mg INHALE RQ6H PRN PRN Reason: wheezing Lorazepam (Lorazepam 0.5 Mg Tablet) 0.5 mg PO DAILY PRN PRN Reason: Anxiety Last Admin: 06/01/22 19:57 Dose: 0.5 mg Melatonin (Melatonin 3 Mg Tablet) 6 mg PO BEDTIME PRN PRN Reason: Insomnia Non-Formulary Medication (Buzqstyqbo-Zsfwonjw-Pkbbcrzksa [Breztri Aerosphere]) 2 puff INHALE DAILY [facility] Non-Formulary Medication (Riociguat) 2.5 mg PO TID [facility] Non-Formulary Medication (Roflumilast [Daliresp]) 250 mcg PO DAILY [facility] Non-Formulary Medication (Selexipag) 600 mcg PO BID [facility] Ondansetron HCl (Ondansetron Hcl 4 Mg/2 Ml Vial) 4 mg IVPUSH Q8H PRN PRN Reason: Nausea and Vomiting Pharmacy Consult (Consult Rx Perform Med Rec) 1 each MISCELLANE ONCE PRN PRN Reason: Consult order Potassium Chloride (Potassium Chloride Er 20 Meq Tab.Er.Prt) 20 meq PO TID [facility] Last Admin: 06/01/22 19:58 Dose: 20 meq Sodium Chloride (0.9 % Sodium Chloride Flush 3 Ml Syringe) 3 ml IVFLUSH QSHIFT [facility] Last Admin: 06/01/22 16:03 Dose: 3 ml Home Medications Medication Instructions Recorded Confirmed Last Taken Type albuterol sulfate 90 mcg/actuation 90 mcg inhalation DAILY 02/17/20 06/01/22 05/31/22 History aerosol inhaler potassium chloride 20 mEq 20 meq PO TID 04/18/20 06/01/22 05/31/22 History tablet,extended release(part/cryst) furosemide 20 mg tablet 60 mg PO DAILY 09/25/20 06/01/22 05/31/22 History riociguat 2.5 mg tablet 2.5 mg PO TID 09/25/20 06/01/22 05/31/22 History selexipag 600 mcg tablet 600 mcg PO BID 06/18/21 06/01/22 05/31/22 History nebulizers 01/15/22 04/16/22 Unknown History Oxygen Home Use 04/26/22 Unknown History azithromycin 250 mg tablet 250 mg PO MOWEFR 06/01/22 06/01/22 05/29/22 History budesonide 160 mcg-glycopyr 9 2 puff inhalation DAILY 06/01/22 06/01/22 05/31/22 History mcg-formot 4.8 mcg/actuation HFA inhaler (Breztri Aerosphere) digoxin 125 mcg (0.125 mg) tablet 125 mcg PO BEDTIME 06/01/22 06/01/22 05/31/22 History Physical Exam Vital Signs: Vital Signs: Last Vital Signs Temp 99.1 F 06/01/22 19:01 Pulse 110 H 06/01/22 19:01 Resp 17 06/01/22 19:01 BP 123/74 06/01/22 19:01 Pulse Ox 98 06/01/22 19:01 O2 Del Method 06/01/22 19:01 O2 Flow Rate 4 06/01/22 15:31 Oxygen Flow Rate 4 06/01/22 00:42 BMI result Body Mass Index 25.2 Const: General: cooperative, alert and awake Orientation/consciousness: patient oriented x3 HEENT: Head: Yes normal to inspection Eyes: General: appearance normal, both eyes and all related structures Neck: Neck: Yes trachea midline Chest: Chest palpation & inspection: normal inspection of the chest Resp: Effort & Inspection: normal respiratory effort Auscultation: diminished lung sounds Cardio: Rate: regular rate and tachycardic Rhythm: regular rhythm Heart sounds: S1 normal heart sound present GI: Inspection: Yes normal to inspection Auscultation: normal bowel sounds Skin: General skin exam: no rashes or lesions noted Neuro: General: patient oriented x3 and no focal motor deficits Extrem: General: Yes edema Psych: Appearance: grossly normal Results Laboratory Findings 06/01/22 01:05 06/01/22 01:05 Abnormal lab findings: Abnormal Labs 06/01/22 06/01/22 06/01/22 01:05 01:05 01:05 RBC 5.69 H MCV 77.9 L MCH 25.0 L RDW 21.3 H MPV 8.4 L BUN 25 H Creatinine 1.45 H Random Glucose 128 H Total Bilirubin 1.3 H B-Natriuretic Peptide 779 H Digoxin 06/01/22 11:59 RBC MCV MCH RDW MPV BUN Creatinine Random Glucose Total Bilirubin B-Natriuretic Peptide Digoxin 0.7 L Assessment and Plan (1) Congestive heart failure: Status: Acute (2) Non-small cell lung cancer: Status: Acute (3) Hx of cancer of lung: Status: Acute (4) COPD (chronic obstructive pulmonary disease): Qualifiers: COPD type: COPD with acute lower respiratory infection Qualified Code(s): J44.0 - Chronic obstructive pulmonary disease with (acute) lower respiratory infection Status: Acute (5) SVT (supraventricular tachycardia): Status: Acute (6) Pulmonary hypertension: Status: Acute (7) Right heart failure: Status: Acute Plan continue diuresis and rate control Should restart riociguat, the elevation of the pulmonary pressures may ultimately worsen her cardiac output ECHO May benefit from a swan carmelita catheter if her condiition were to worsen or not improve continue oxygen to keep pox>90% continue respiratory therapy Time Spent With Patient Time: Total time managing care of this patient today ____ minutes. Procedures Date of Service Date of Service: 06/01/22
[2022-06-01 22:35] LABS: Glucose, Whole Blood 104 mg/dL (60-115)
[2022-06-01] MEDS: ondansetron HCL 4 MG/2 ML VIAL IVPUSH (22:36)
[2022-06-02] VITALS (28 sets, daily range): BP systolic 54–149; BP diastolic 30–95; PULSE 50–106; RESP 12–32; TEMP 36.1–36.7; O2SAT 82–100; BMI 24.6
--- NOTE | 2022-06-02 | ECG_ITS ---
Test Reason : chest pain Blood Pressure : / mmHG Vent. Rate : 100 BPM Atrial Rate : 100 BPM P-R Int : 130 ms QRS Dur : 086 ms QT Int : 356 ms P-R-T Axes : 081 085 074 degrees QTc Int : 459 ms Normal sinus rhythm Left atrial enlargement Possible Anteroseptal infarct , age undetermined Abnormal ECG When compared with ECG of 01-JUN-2022 01:02, No significant changes seen Referred By: Edel Benitez Electronically Signed By:REESE PAGAN
--- NOTE | 2022-06-02 | ECG_ITS ---
Test Reason : chest pain Blood Pressure : / mmHG Vent. Rate : 103 BPM Atrial Rate : 103 BPM P-R Int : 124 ms QRS Dur : 080 ms QT Int : 316 ms P-R-T Axes : 090 078 088 degrees QTc Int : 413 ms Sinus tachycardia Left atrial enlargement Septal infarct , age undetermined Lateral infarct , age undetermined Abnormal ECG When compared with ECG of 01-JUN-2022 01:02, T waves upright lenny-lateral leads Referred By: Edel Benitez Electronically Signed By:REESE PAGAN
[2022-06-02 00:49] LABS: Glucose, Whole Blood 82 mg/dL (60-115)
[2022-06-02 01:04] LABS: ABG Base Excess -13.6 mmol/L; ABG HCO3 11 mmol/L (22-26); ABG pCO2 25 mmHg (32-45); ABG pH 7.25 (7.35-7.45); ABG pO2 77 mmHg (83-108)
[2022-06-02 01:05] LABS: ABG Refer to POC result
--- NOTE | 2022-06-02 01:46 | PM.EVENT ---
Event Note Date of Service: 06/02/22 Event Note: Rapid response was called on the patient earlier. As per the nurse, patient went to the restroom and was minimally responsive after that. Questionable loss of consciousness. Could not obtain a saturation and blood pressure upon arrival. She was placed on non-rebreather. Eventually patient regained consciousness and was placed back on 4 L nasal cannula with sats around 90%. She denied chest discomfort but did complain of dyspnea. She was tachypneic and was breathing about 30 times a minute. EKG revealed sinus tachycardia. Obtain ABG which revealed metabolic acidosis with pH 7.25 and bicarb 11. Got a call from the nurse that manual BP was 80/40. Spoke to Dr. Benitez as patient might benefit from higher level of care. Troponin, lactic acid and repeat BMP pending Time Spent With Patient Time: Total time managing care of this patient today ____ minutes.
[2022-06-02 01:47] LABS: Anion Gap 29 (12-20); Blood Urea Nitrogen 41 mg/dL (9-16); Calcium 10.1 mg/dL (8.4-10.2); Carbon Dioxide 13 mmol/L (22-29); Chloride 107 mmol/L (96-108); Creatinine Clr Calc Pharmacy 27.7; Estimated Glomerular Filt Rate 25; Glucose Random 89 mg/dL (60-115); Potassium 5.6 mmol/L (3.3-5.1); Sodium 143 mmol/L (135-145)
[2022-06-02 02:27] LABS: Lactic Acid 8.5 mmol/L (0.5-2.0)
[2022-06-02 02:34] LABS: B Type Natriuretic Peptide 1825 pg/mL (<100)
--- NOTE | 2022-06-02 02:38 | P.CONCC_ITS ---
History of Present Illness Data of Consult Service Date: 06/02/22 Requesting physician: Lindsay Zamarripa Primary Care Provider: Laury Soto MD [facility] Reason for consult: metabolic acidosis The patient is a 66 year old female with h/o non-small cell lung cancer, COPD, pulmonary hypertension, right-sided heart failure and supraventricular tachycardia admitted with exacerbation of right heart failure likely precipitated by uncontrolled SVT and/or Copd exacerbtion.? Rapid response was called on the patient. The nurse reports that patient went to the restroom and was minimally responsive after that.? Questionable loss of consciousness.? There was difficulty obtaining a saturation and blood pressure. She was placed on non-rebreather.? Eventually,? patient regained consciousness and was placed back on 4 L nasal cannula with sats around 90%.? She denied chest discomfort but did complain of dyspnea.? She was tachypneic and was breathing about 30 times a minute.? EKG revealed sinus tachycardia. ABG revealed metabolic acidosis with pH 7.25 and bicarb 11.? I went to [facility] to assess the patient.? She was dyspneic and bradycardic in the 50s. Her breathing was labored, she was tripoding and using accessory muscles. Her blood pressure was 80/50. All 4 extremities were dusky and cool. Pulses by Doppler only. The patient was placed on BiPAP for support and transferred to the ICU. Review of Systems Constitutional: Constitutional: Reports as per HPI [facility] Past Medical History Medical History Calcinosis Chronic respiratory failure with hypoxia COPD (chronic obstructive pulmonary disease) Gout Hx of cancer of lung (~2004) Lymphadenopathy Non-small cell lung cancer (~2004) BERTIN (obstructive sleep apnea) Pulmonary hypertension Pulmonary nodule Raynaud's disease without gangrene Right heart failure SVT (supraventricular tachycardia) Family History Family History Father Lung cancer Mother CVD (cardiovascular disease) Surgical History Surgical History History of cardiac cath (~2017) History of colonoscopy (~2020) History of lobectomy of lung (~2006) History of right hip replacement (~2013) History of thoracic surgery (~2004) Social History Social History Household Members: Spouse Housing: House Are you a primary care tech to a significant other at home: No Do you presently have visiting nurse or other home services: No Alcohol intake: never Patient Tobacco Use Status: Former Tobacco user Quit Date: 2004 Tobacco use type: Cigarette e-Cigarette/Vaping Use: Never Used service: No Current occupational status: retired Meds Allergies Allergy/AdvReac Type Severity Reaction Status Date / Time cephalexin Allergy Severe rash Verified 04/16/22 10:47 Beta-Blockers AdvReac Intermediate SHORTNESS Verified 04/16/22 10:47 (Beta-Adrenergic Bloc OF BREATH Active Medications: Current Medications Acetaminophen (Acetaminophen 325 Mg Tablet) 650 mg PO Q6H PRN PRN Reason: Pain, Mild (Pain Scale 1-3) Albuterol Sulfate (Albuterol Sulfate 90 Mcg 8 Gm Inhaler) 1 puff INHALE RDAILY [facility] Atorvastatin Calcium (Atorvastatin Calcium 10 Mg Tablet) 10 mg PO BEDTIME ANGIE Last Admin: 06/01/22 19:58 Dose: 10 mg Azithromycin (Azithromycin 250 Mg Tablet) 250 mg PO MoWeFr@0900 ANGIE Digoxin (Digoxin 0.125 Mg Tablet) 0.125 mg PO BEDTIME ANGIE Last Admin: 06/01/22 19:57 Dose: 0.125 mg Enoxaparin Sodium (Enoxaparin Sodium 40 Mg/0.4 Ml Syringe) 40 mg SUBCUT Q24H ANGIE Last Admin: 06/01/22 12:10 Dose: 40 mg Furosemide (Furosemide 40 Mg/4 Ml Vial) 40 mg IVPUSH BID@0900,1800 ANGIE; Protocol Last Admin: 06/01/22 18:03 Dose: Not Given Norepinephrine Bitartrate (Levophed) 8 mg in 250 mls @ 0 mls/hr IV .Q0M ANGIE; Protocol Levalbuterol HCl (Levalbuterol Hcl 1.25 Mg/0.5 Ml Vial.Neb) 1.25 mg INHALE RQ6H PRN PRN Reason: wheezing Lorazepam (Lorazepam 0.5 Mg Tablet) 0.5 mg PO DAILY PRN PRN Reason: Anxiety Last Admin: 06/01/22 19:57 Dose: 0.5 mg Melatonin (Melatonin 3 Mg Tablet) 6 mg PO BEDTIME PRN PRN Reason: Insomnia Non-Formulary Medication (Oshhavmcph-Xtileyle-Tarfnqxcew [Breztri Aerosphere]) 2 puff INHALE DAILY [facility] Non-Formulary Medication (Riociguat) 2.5 mg PO TID [facility] Non-Formulary Medication (Roflumilast [Daliresp]) 250 mcg PO DAILY [facility] Non-Formulary Medication (Selexipag) 600 mcg PO BID [facility] Ondansetron HCl (Ondansetron Hcl 4 Mg/2 Ml Vial) 4 mg IVPUSH Q8H PRN PRN Reason: Nausea and Vomiting Last Admin: 06/01/22 22:36 Dose: 4 mg Pharmacy Consult (Consult Rx Perform Med Rec) 1 each MISCELLANE ONCE PRN PRN Reason: Consult order Potassium Chloride (Potassium Chloride Er 20 Meq Tab.Er.Prt) 20 meq PO TID [facility] Last Admin: 06/01/22 19:58 Dose: 20 meq Sodium Chloride (0.9 % Sodium Chloride Flush 3 Ml Syringe) [facility] Last Admin: 06/01/22 16:03 Dose: 3 ml Home Medications Medication Instructions Recorded Confirmed Last Taken Type albuterol sulfate 90 mcg/actuation 90 mcg inhalation DAILY 02/17/20 06/01/22 05/31/22 History aerosol inhaler potassium chloride 20 mEq 20 meq PO TID 04/18/20 06/01/22 05/31/22 History tablet,extended release(part/cryst) furosemide 20 mg tablet 60 mg PO DAILY 09/25/20 06/01/22 05/31/22 History riociguat 2.5 mg tablet 2.5 mg PO TID 09/25/20 06/01/22 05/31/22 History selexipag 600 mcg tablet 600 mcg PO BID 06/18/21 06/01/22 05/31/22 History nebulizers 01/15/22 04/16/22 Unknown History Oxygen Home Use 04/26/22 Unknown History azithromycin 250 mg tablet 250 mg PO MOWEFR 06/01/22 06/01/22 05/29/22 History budesonide 160 mcg-glycopyr 9 2 puff inhalation DAILY 06/01/22 06/01/22 05/31/22 History mcg-formot 4.8 mcg/actuation HFA inhaler (Signix) digoxin 125 mcg (0.125 mg) tablet 125 mcg PO BEDTIME 06/01/22 06/01/22 05/31/22 History Physical Exam Vital Signs: Vital Signs: Last Vital Signs Temp 97.0 F 06/02/22 00:30 Pulse 95 06/02/22 01:30 Resp 30 H 06/02/22 01:30 BP 80/50 L 06/02/22 01:30 Pulse Ox 95 06/02/22 01:30 O2 Del Method 06/02/22 00:30 O2 Flow Rate 4 06/02/22 01:30 Oxygen Flow Rate 4 06/01/22 00:42 BMI result Body Mass Index 25.2 Const: General: acute distress and anxious Nutritional Appearance: average body habitus Orientation/consciousness: patient oriented x3 Limitations: no limitations Resp: Effort & Inspection: labored, respiratory distress, tripod positioning and uses accessory muscles Auscultation: diminished lung sounds Cardio: Rate: bradycardic Heart sounds: S1 normal heart sound present and S2 normal heart sound present Peripheral pulses: femoral pulses present (doppler) Neuro: General: patient oriented x3 Extrem: Right upper extremity: Extremity exam: right hand (dusky, cool) Left upper extremity: hand (dusky, cool) Right lower extremity: foot (dusky, cool) Left lower extremity: foot (dusky, cool) Results Labs 06/01/22 01:05 06/02/22 01:19 Labs: BMP 06/02/22 01:19 Sodium 143 Potassium 5.6 H D Chloride 107 Carbon Dioxide 13 L BUN 41 H Creatinine 1.97 H Calcium 10.1 Assessment and Plan (1) Congestive heart failure: Status: Resolved (2) Non-small cell lung cancer: Status: Resolved (3) Hx of cancer of lung: Status: Resolved (4) Pulmonary nodule: Status: Resolved (5) Chronic respiratory failure with hypoxia: Status: Resolved (6) COPD (chronic obstructive pulmonary disease): Qualifiers: COPD type: COPD with acute lower respiratory infection Qualified Code(s): J44.0 - Chronic obstructive pulmonary disease with (acute) lower respiratory infection Status: Resolved (7) BERTIN (obstructive sleep apnea): Status: Resolved (8) Pulmonary hypertension: Status: Resolved (9) Right heart failure: Status: Resolved (10) SVT (supraventricular tachycardia): Status: Resolved (11) Raynaud's disease without gangrene: Status: Resolved Plan The patient will be admitted to the ICU and started on Levophed for pressure s upport and placed on BiPAP for respiratory support. The patient stated both on IMC and again when she arrived in ICU that she did not want a tube down her throat to breathe, but did want to have CPR performed if her heart stopped beating.? Will repeat her labs in 2 hours. Echo pending for tomorrow. Repeat EKG. Time Spent With Patient Time: Total time managing care of this patient today ____ minutes.
[2022-06-02] MEDS: Norepinephrine Bitartrate/D5W 8 MG/250 ML PLAST..BAG 6.46 MG IV (03:05)
[2022-06-02 04:07] LABS: Reflex Lactate? Lactic Acid Added
--- NOTE | 2022-06-02 04:19 | PC.NURSE ---
Addendum entered by Evangelina Coy RN 06/02/22 05:56: Pt becoming more arousable but drowsy, alert and oriented x3. Family visiting at bedside. Original Note: 0230 - Pt to icu, restless, oriented to self and place. Placed on bipap using accessory?muscles to breath, pt stated she did not want to be intubated when asked by INTEGRATION MANAGER. HR sinus haresh 50s on tele. Pt has cold, cyanotic extremities RT at bedside, pt on bipap. 0300- Pt bp 50s systolic, levophed started. 0319- Pt unresponsive and cyanotic, absent pulse. PEA on monitor. Code called, compressions only as per pt wishes. Rosc achieved, see code flowsheet.? 0400- notified and at bedside. BP stable, continues on levophed. HR sinus 90s on tele, spO2 >95% on bipap, 100% fiO2. Pt minimally?responsive to sternal rub. [place] placed.
--- NOTE | 2022-06-02 04:51 | PM.CCN ---
Critical Care Event Note Summary Date of Service: 06/02/22 Code activated: Yes Narrative: Shortly after arriving to the ICU, the patient's respirations became agonal, she became bradycardic, blood pressure was in the 40 systolic range and she was pulseless. Compressions were started. She received 2 rounds of epi. ROSC was achieved after 4 minutes of ACLS. She was put back on BiPAP for respiratory support. Levophed was continued for pressure support. Patient's HCP, her Prince, was notified of the event and on his way in. This case had a high probability of a clinically significant, sudden, or life threatening deterioration of this patient's condition which required my full and direct attention, intervention and personal management. Critical Care Time (minutes): 60
[2022-06-02 05:03] LABS: VBG Base Excess -13.2 mmol/L; VBG HCO3 15 mmol/L (22-26); VBG pCO2 42 mmHg; VBG pH 7.15 (7.32-7.43); VBG pO2 53 mmHg
[2022-06-02 05:05] LABS: Venous Blood Gas Refer to POC result
[2022-06-02 05:06] LABS: MANUAL DIFF FLAG NO
[2022-06-02 05:09] LABS: Basophils Absolute Auto 0.1 X10*3/uL (0.0-0.2); Basophils Percent Auto 0.4 % (0-2); Eosinophils Percent Auto 0.3 % (0-4); Hematocrit 51.2 % (37.0-47.0); Hemoglobin 15.4 g/dl (12.0-16.0); Imm Gran Abs Auto 0.09 X10*3/uL (0.00-0.03); Imm Gran Pct Auto 0.8 % (0.0-0.4); Lymphocytes Absolute Auto 0.7 X10*3/uL (1.2-4.9); Lymphocytes Percent Auto 6.3 % (20-40); Mean Corpuscular HGB Conc 30.1 g/dl (31.0-35.0); Mean Corpuscular Hemoglobin 24.5 pg (27.0-33.0); Mean Corpuscular Volume 81.4 fL (80.0-98.0); Mean Platelet Volume 8.8 fL (9.4-12.3); Monocytes Absolute Auto 1.4 X10*3/uL (0.1-1.2); Monocytes Percent Auto 11.8 % (2-11); NRBC Pct Auto 0.2 /100WBC (0.0-0.2); Neutrophils Absolute Auto 9.3 x10*3/uL (2.0-8.3); Neutrophils Percent Auto 80.4 % (45-73); Platelet Count 310 X10*3/uL (160-400); Red Blood Count 6.29 X10*6/uL (4.20-5.50); Red Cell Distribution Width 22.2 % (11.0-16.0); White Blood Count 11.5 X10*3/uL (4.8-10.8)
[2022-06-02] MEDS: Sodium Bicarbonate 8.4% 50 MEQ/50 ML VIAL IVPUSH (05:16)
[2022-06-02 05:43] LABS: ~Lactic Acid-LAB USE ONLY 8.9 mmol/L (0.5-2.0)
[2022-06-02 05:47] LABS: Anion Gap 30 (12-20); Blood Urea Nitrogen 44 mg/dL (9-16); Calcium 10.3 mg/dL (8.4-10.2); Carbon Dioxide 13 mmol/L (22-29); Chloride 106 mmol/L (96-108); Creatinine Clr Calc Pharmacy 22.8; Estimated Glomerular Filt Rate 20; Glucose Random 75 mg/dL (60-115); Magnesium 2.6 mg/dL (1.6-2.6); Phosphorus 9.5 mg/dL (2.7-4.5); Sodium 143 mmol/L (135-145)
--- NOTE | 2022-06-02 06:35 | PC.NURSE ---
1950 Notified MD of run of SVT @160, and pt compalints of Shortness Of Breath , and chest tightness, thei RN gave ordered dose of Ativan and Digoxin. 2035 Notified MD Chest tightness resolved , Pt sinus tachy HR 106. 2105 Pt stated feeling SOB and anxious and the Ativan did not help , vitals taken BP 108/73 O2 SAT on 4L NC 94%. MD notified ordered benadryl for the patient. 2211 Notified MD pt stated she ?is just not feeling right? she is feeling nausea, dizzy, skin is dry HR 105 BP 111/80,no chest pain , MD ordered Zofran. 2213 This RN requested MD to see the pt at bedside , he arrived and assessed the pt and was going to research her chart. Shortly after pt fell asleep. 0015 Patient awoke and requested to use the commode , she was on the commode approximately 15 minutes, she then rang the hess and the Nurses aid and I were assisting her back into bed and she appeared to faint and became unresponsive. This RN called a rapid response.? 0036 Vitals HR111,temperature 97.0, difficulty getting manual BP. 0030 Pt unresponsive to sternal rub, Vitals taken BP 100/62 O2 sat 98% with agonal breathing, 28 RR,cyanotic, hands and feet ? Respiratory at bedside with 100% non rebreather mask applied MD at bedside ordered ABG, Troponin, BNP, and lactic acid. 0133 Manual BP taken 80/50 , RR 30 MD notified, and stated will transfer PT to ICU pt cyanotic and acidotic. [id number] pt began to struggle with breathing again, Respiratory again at bedside with non rebreather @100% , ICU MEAT WRAPPER Day at bedside to assist with transfer to ICU.
[2022-06-02 07:03] LABS: Reflex Lactate? 2 Y
[2022-06-02 07:58] LABS: ~Lactic Acid-LAB USE ONLY 6.5 mmol/L (0.5-2.0)
[2022-06-02 08:22] LABS: Appearance Urine Cloudy; Color Urine Dark Yellow; Glucose Urine UA Negative (Negative); Leukocyte Esterase Urine Negative (Negative); Nitrite Urine Negative (Negative); PH 5.5 (5.0-9.0); Specific Gravity - Urine 1.015 (1.005-1.025); UMIC TRIGGER UA YES; Urine Blood Moderate (2+) (Negative); Urine Ketones Negative (Negative); Urine Protein 300 (3+) mg/dL (Neg-Trace)
[2022-06-02] MEDS: 0.9 % Sodium Chloride Flush 3 ML SYRINGE IVFLUSH ×2 (08:25→16:14)
[2022-06-02 08:26] LABS: Bacteria Urine None Seen (None Seen); RBC Urine >20 /HPF (0-2); Squamous Epithelial Cell Urine 0-2 /HPF (0-2); WBC Urine 0-5 /HPF (0-5)
--- NOTE | 2022-06-02 09:00 | PM.CNNEP ---
History of Present Illness Reason for Consult Consult date: 06/02/22 Chief Complaint Chief complaint: right side heart failure, SVT History of Present Illness Narrative: 66 year old patient with history of CKD admitted to ICU currently with worsening kidney function and elevated serum potassium. At the time of the consultation she is on BIPAP. She presented with increasing shortness of? worse with activity and has noted signficant increase in leg edema. Rapid response was called after her admission and eventually patient was transferred to ICU for further management. Review of her vital signs showed hypotensive episodes with systolic blood pressure down to the 50s. Review of Systems Review of Systems 10 points ROS negative except for pertinent in HPI [facility] Past Medical History Medical History Calcinosis Chronic respiratory failure with hypoxia COPD (chronic obstructive pulmonary disease) Gout Hx of cancer of lung (~2004) Lymphadenopathy Non-small cell lung cancer (~2004) BERTIN (obstructive sleep apnea) Pulmonary hypertension Pulmonary nodule Raynaud's disease without gangrene Right heart failure SVT (supraventricular tachycardia) Family History Family History Father Lung cancer Mother CVD (cardiovascular disease) Surgical History Surgical History History of cardiac cath (~2017) History of colonoscopy (~2020) History of lobectomy of lung (~2006) History of right hip replacement (~2013) History of thoracic surgery (~2004) Social History Social History Household Members: Spouse Housing: House Are you a primary critical care specialist to a significant other at home: No Do you presently have visiting nurse or other home services: No Alcohol intake: never Patient Tobacco Use Status: Former Tobacco user Quit Date: 2004 Tobacco use type: Cigarette e-Cigarette/Vaping Use: Never Used service: No Current occupational status: retired Meds Allergies Allergy/AdvReac Type Severity Reaction Status Date / Time cephalexin Allergy Severe rash Verified 04/16/22 10:47 Beta-Blockers AdvReac Intermediate SHORTNESS Verified 04/16/22 10:47 (Beta-Adrenergic Bloc OF BREATH Active Medications: Current Medications Acetaminophen (Acetaminophen 325 Mg Tablet) 650 mg PO Q6H PRN PRN Reason: Pain, Mild (Pain Scale 1-3) Albuterol Sulfate (Albuterol Sulfate 90 Mcg 8 Gm Inhaler) 1 puff INHALE RDAILY [facility] Last Admin: 06/02/22 08:39 Dose: Not Given Atorvastatin Calcium (Atorvastatin Calcium 10 Mg Tablet) 10 mg PO BEDTIME [facility] Last Admin: 06/01/22 19:58 Dose: 10 mg Azithromycin (Azithromycin 250 Mg Tablet) 250 mg PO MoWeFr@0900 [facility] Digoxin (Digoxin 0.125 Mg Tablet) 0.125 mg PO BEDTIME [facility] Last Admin: 06/01/22 19:57 Dose: 0.125 mg Enoxaparin Sodium (Enoxaparin Sodium 40 Mg/0.4 Ml Syringe) 40 mg SUBCUT Q24H [facility] Last Admin: 06/01/22 12:10 Dose: 40 mg Furosemide (Furosemide 40 Mg/4 Ml Vial) 40 mg IVPUSH BID@0900,1800 [facility]; Protocol Last Admin: 06/01/22 18:03 Dose: Not Given Norepinephrine Bitartrate (Levophed) 8 mg in 250 mls @ 0 mls/hr IV .Q0M [facility]; Protocol Last Titration: 06/02/22 06:17 Dose: 0 mcg/kg/min, 0 mls/hr Levalbuterol HCl (Levalbuterol Hcl 1.25 Mg/0.5 Ml Vial.Neb) 1.25 mg INHALE RQ6H PRN PRN Reason: wheezing Lorazepam (Lorazepam 0.5 Mg Tablet) 0.5 mg PO DAILY PRN PRN Reason: Anxiety Last Admin: 06/01/22 19:57 Dose: 0.5 mg Melatonin (Melatonin 3 Mg Tablet) 6 mg PO BEDTIME PRN PRN Reason: Insomnia Non-Formulary Medication (Kenamvjfiz-Gghjfury-Aqzzoxkuws [Breztri Aerosphere]) 2 puff INHALE DAILY [facility] Non-Formulary Medication (Riociguat) 2.5 mg PO TID [facility] Non-Formulary Medication (Roflumilast [Daliresp]) 250 mcg PO DAILY [facility] Non-Formulary Medication (Selexipag) 600 mcg PO BID [facility] Ondansetron HCl (Ondansetron Hcl 4 Mg/2 Ml Vial) 4 mg IVPUSH Q8H PRN PRN Reason: Nausea and Vomiting Last Admin: 06/01/22 22:36 Dose: 4 mg Pharmacy Consult (Consult Rx Perform Med Rec) 1 each MISCELLANE ONCE PRN PRN Reason: Consult order Potassium Chloride (Potassium Chloride Er 20 Meq Tab.Er.Prt) 20 meq PO TID [facility] Last Admin: 06/02/22 08:09 Dose: Not Given Sodium Chloride (0.9 % Sodium Chloride Flush 3 Ml Syringe) 3 ml IVFLUSH QSHIFT [facility] Last Admin: 06/02/22 08:25 Dose: 3 ml Home Medications Medication Instructions Recorded Confirmed Last Taken Type albuterol sulfate 90 mcg/actuation 90 mcg inhalation DAILY 02/17/20 06/01/22 05/31/22 History aerosol inhaler potassium chloride 20 mEq 20 meq PO TID 04/18/20 06/01/22 05/31/22 History tablet,extended release(part/cryst) furosemide 20 mg tablet 60 mg PO DAILY 09/25/20 06/01/22 05/31/22 History riociguat 2.5 mg tablet 2.5 mg PO TID 09/25/20 06/01/22 05/31/22 History selexipag 600 mcg tablet 600 mcg PO BID 06/18/21 06/01/22 05/31/22 History nebulizers 01/15/22 04/16/22 Unknown History Oxygen Home Use 04/26/22 Unknown History azithromycin 250 mg tablet 250 mg PO MOWEFR 06/01/22 06/01/22 05/29/22 History budesonide 160 mcg-glycopyr 9 2 puff inhalation DAILY 06/01/22 06/01/22 05/31/22 History mcg-formot 4.8 mcg/actuation HFA inhaler (Breztri Aerosphere) digoxin 125 mcg (0.125 mg) tablet 125 mcg PO BEDTIME 06/01/22 06/01/22 05/31/22 History Physical Exam Vital Signs: Last Vital Signs Temp 97.6 F 06/02/22 08:00 Pulse 104 H 06/02/22 08:00 Resp 21 H 06/02/22 08:36 BP 97/55 L 06/02/22 08:00 Pulse Ox 98 06/02/22 08:00 O2 Del Method 06/02/22 08:00 O2 Flow Rate 4 06/02/22 01:30 FiO2 50 06/02/22 08:00 Oxygen Flow Rate 4 06/01/22 00:42 BMI result Body Mass Index 24.6 Const General: no acute distress and awake HEENT Head: Yes normocephalic and Yes atraumatic Neck Neck: Yes supple Resp Auscultation: diminished lung sounds Cardio Heart sounds: S1 normal heart sound present and S2 normal heart sound present GI Palpation (GI): Soft to palpation and nontender Extrem General: Yes edema Results Lab Results 06/02/22 04:57 06/02/22 04:57 Lab results: Chemistry 06/01/22 06/02/22 06/02/22 01:05 01:19 04:57 Sodium 144 143 143 Potassium 3.6 5.6 H D 6.0 H* Carbon Dioxide 22 13 L 13 L BUN 25 H 41 H 44 H Creatinine 1.45 H 1.97 H 2.40 H Calcium 9.9 10.1 10.3 H Phosphorus 9.5 H Hematology 06/01/22 06/02/22 01:05 04:57 WBC 9.1 11.5 H Hgb 14.2 15.4 Plt Count 258 310 Urinalysis 06/02/22 07:37 Urine Color Dark Yellow Urine Appearance Cloudy Urine pH 5.5 Ur Specific [place] 1.015 Urine Protein 300 (3+) H Urine Glucose (UA) Negative Urine Ketones Negative Urine Blood Moderate (2+) H Urine Nitrite Negative Ur Leukocyte Esterase Negative Urine RBC >20 H Urine WBC 0-5 Ur Squamous Epith Cells 0-2 Hyaline Casts 3-5 Assessment and Plan (1) KIRAN (acute kidney injury): Status: Acute (2) Hyperkalemia: Status: Acute (3) Metabolic acidosis: Status: Acute (4) Right heart failure: Status: Acute (5) CKD (chronic kidney disease) stage 3, GFR 30-59 ml/min: Status: Acute Plan KIRAN multifactorial: -renal hypoperfusion resulting in ischemic acute tubular injury -type 1 cardio renal syndrome other less likely h/o CKD baseline Scr ~ 1.3 mg/dl elevated serum potassium due to metabolic acidosis and compromised distal flow known diastolic dysfunction and pulmonary HTN REC Raeann sodium zirconium IV diuresis discontinue potassium suplements keep MAP >65 mmhg no indication for MANAGER MEDICAID follow kidney function and electrolytes Time Spent With Patient Time: Total time managing care of this patient today ____ minutes. Procedures Date of Service Date of Service: 06/02/22
--- NOTE | 2022-06-02 11:21 | PM.PNPUL ---
Subjective Subjective Date of Service: 06/02/22 Interval history: Seen and examined. The patient was transferred to the ICU after PEA code on the floor. She is currently on levophed and BIPAP 10/5. Her volumes were greater then 1000ml, so decreased to BIPAP 8/5. She did have a bedside ECHO confirming that her RV is obstructing her LV outflow resulting in obstructive shock. She is currently off her vasodilator. The patient had her code status change to DNR. Objective Data Labs 06/02/22 04:57 06/02/22 04:57 Labs: Laboratory Results - last 24 hr 06/01/22 06/01/22 06/02/22 11:59 22:32 00:41 WBC RBC Hgb Hct MCV MCH MCHC RDW Plt Count MPV Immature Gran % (Auto) Neut % (Auto) Lymph % (Auto) [place] % (Auto) Eos % (Auto) Baso % (Auto) Lymph # (Auto) [place] # (Auto) Eos # (Auto) Baso # (Auto) Abs Immat Gran (auto) Absolute Neuts (auto) Absolute Nucleated RBC Nucleated RBC % (auto) O2 Saturation ABG pH at Pt Temp ABG pCO2 at Pt Temp ABG pO2 at Pt Temp ABG HCO3 ABG Base Excess (Actual) VBG pH VBG pCO2 VBG pO2 VBG HCO3 VBG O2 Saturation VBG Base Excess Sodium Potassium Chloride Carbon Dioxide Anion Gap BUN Creatinine Estim Creat Clear Calc Estimated GFR POC Glucose 104 82 Random Glucose Lactic Acid Lactic Acid F/U @ 2Hr Lactic Acid F/U @ 4Hr Calcium Phosphorus Magnesium Troponin I High Sens B-Natriuretic Peptide Albumin Urine Color Urine Appearance Urine pH Ur Specific [place] Urine Protein Urine Glucose (UA) Urine Ketones Urine Blood Urine Nitrite Ur Leukocyte Esterase Urine RBC Urine WBC Ur Squamous Epith Cells Urine Bacteria Hyaline Casts Ur Random Sodium Digoxin 0.7 L 06/02/22 06/02/22 06/02/22 00:58 01:04 01:04 WBC RBC Hgb Hct MCV MCH MCHC RDW Plt Count MPV Immature Gran % (Auto) Neut % (Auto) Lymph % (Auto) [place] % (Auto) Eos % (Auto) Baso % (Auto) Lymph # (Auto) [place] # (Auto) Eos # (Auto) Baso # (Auto) Abs Immat Gran (auto) Absolute Neuts (auto) Absolute Nucleated RBC Nucleated RBC % (auto) O2 Saturation 90.0 ABG pH at Pt Temp 7.25 L ABG pCO2 at Pt Temp 25 L ABG pO2 at Pt Temp 77 L ABG HCO3 11 L ABG Base Excess (Actual) -13.6 VBG pH VBG pCO2 VBG pO2 VBG HCO3 VBG O2 Saturation VBG Base Excess Sodium Potassium Chloride Carbon Dioxide Anion Gap BUN Creatinine Estim Creat Clear Calc Estimated GFR POC Glucose Random Glucose Lactic Acid Lactic Acid F/U @ 2Hr Lactic Acid F/U @ 4Hr Calcium Phosphorus Magnesium Troponin I High Sens 12.0 D B-Natriuretic Peptide 1825 H Albumin Urine Color Urine Appearance Urine pH Ur Specific [place] Urine Protein Urine Glucose (UA) Urine Ketones Urine Blood Urine Nitrite Ur Leukocyte Esterase Urine RBC Urine WBC Ur Squamous Epith Cells Urine Bacteria Hyaline Casts Ur Random Sodium Digoxin 06/02/22 06/02/22 06/02/22 01:19 02:03 04:55 WBC RBC Hgb Hct MCV MCH MCHC RDW Plt Count MPV Immature Gran % (Auto) Neut % (Auto) Lymph % (Auto) [place] % (Auto) Eos % (Auto) Baso % (Auto) Lymph # (Auto) [place] # (Auto) Eos # (Auto) Baso # (Auto) Abs Immat Gran (auto) Absolute Neuts (auto) Absolute Nucleated RBC Nucleated RBC % (auto) O2 Saturation ABG pH at Pt Temp ABG pCO2 at Pt Temp ABG pO2 at Pt Temp ABG HCO3 ABG Base Excess (Actual) VBG pH 7.15 L* VBG pCO2 42 VBG pO2 53 VBG HCO3 15 L VBG O2 Saturation 59.0 VBG Base Excess -13.2 Sodium 143 Potassium 5.6 H D Chloride 107 Carbon Dioxide 13 L Anion Gap 29 H BUN 41 H Creatinine 1.97 H Estim Creat Clear Calc 27.7 Estimated GFR 25 POC Glucose Random Glucose 89 Lactic Acid 8.5 H* Lactic Acid F/U @ 2Hr Lactic Acid F/U @ 4Hr Calcium 10.1 Phosphorus Magnesium Troponin I High Sens B-Natriuretic Peptide Albumin Urine Color Urine Appearance Urine pH Ur Specific [place] Urine Protein Urine Glucose (UA) Urine Ketones Urine Blood Urine Nitrite Ur Leukocyte Esterase Urine RBC Urine WBC Ur Squamous Epith Cells Urine Bacteria Hyaline Casts Ur Random Sodium Digoxin 06/02/22 06/02/22 06/02/22 04:57 04:57 04:57 WBC 11.5 H RBC 6.29 H Hgb 15.4 Hct 51.2 H MCV 81.4 MCH 24.5 L MCHC 30.1 L RDW 22.2 H Plt Count 310 MPV 8.8 L Immature Gran % (Auto) 0.8 H Neut % (Auto) 80.4 H Lymph % (Auto) 6.3 L [place] % (Auto) 11.8 H Eos % (Auto) 0.3 Baso % (Auto) 0.4 Lymph # (Auto) 0.7 L [place] # (Auto) 1.4 H Eos # (Auto) 0.0 Baso # (Auto) 0.1 Abs Immat Gran (auto) 0.09 H Absolute Neuts (auto) 9.3 H Absolute Nucleated RBC 0.020 H Nucleated RBC % (auto) 0.2 O2 Saturation ABG pH at Pt Temp ABG pCO2 at Pt Temp ABG pO2 at Pt Temp ABG HCO3 ABG Base Excess (Actual) VBG pH VBG pCO2 VBG pO2 VBG HCO3 VBG O2 Saturation VBG Base Excess Sodium 143 Potassium 6.0 H* Chloride 106 Carbon Dioxide 13 L Anion Gap 30 H BUN 44 H Creatinine 2.40 H Estim Creat Clear Calc 22.8 Estimated GFR 20 POC Glucose Random Glucose 75 Lactic Acid Lactic Acid F/U @ 2Hr 8.9 H* Lactic Acid F/U @ 4Hr Calcium 10.3 H Phosphorus 9.5 H Magnesium 2.6 Troponin I High Sens B-Natriuretic Peptide Albumin 4.0 Urine Color Urine Appearance Urine pH Ur Specific [place] Urine Protein Urine Glucose (UA) Urine Ketones Urine Blood Urine Nitrite Ur Leukocyte Esterase Urine RBC Urine WBC Ur Squamous Epith Cells Urine Bacteria Hyaline Casts Ur Random Sodium Digoxin 06/02/22 06/02/22 06/02/22 07:36 07:37 09:54 WBC RBC Hgb Hct MCV MCH MCHC RDW Plt Count MPV Immature Gran % (Auto) Neut % (Auto) Lymph % (Auto) [place] % (Auto) Eos % (Auto) Baso % (Auto) Lymph # (Auto) [place] # (Auto) Eos # (Auto) Baso # (Auto) Abs Immat Gran (auto) Absolute Neuts (auto) Absolute Nucleated RBC Nucleated RBC % (auto) O2 Saturation ABG pH at Pt Temp ABG pCO2 at Pt Temp ABG pO2 at Pt Temp ABG HCO3 ABG Base Excess (Actual) VBG pH VBG pCO2 VBG pO2 VBG HCO3 VBG O2 Saturation VBG Base Excess Sodium Potassium Chloride Carbon Dioxide Anion Gap BUN Creatinine Estim Creat Clear Calc Estimated GFR POC Glucose Random Glucose Lactic Acid Lactic Acid F/U @ 2Hr Lactic Acid F/U @ 4Hr 6.5 H* Calcium Phosphorus Magnesium Troponin I High Sens B-Natriuretic Peptide Albumin Urine Color Dark Yellow Urine Appearance Cloudy Urine pH 5.5 Ur Specific [place] 1.015 Urine Protein 300 (3+) H Urine Glucose (UA) Negative Urine Ketones Negative Urine Blood Moderate (2+) H Urine Nitrite Negative Ur Leukocyte Esterase Negative Urine RBC >20 H Urine WBC 0-5 Ur Squamous Epith Cells 0-2 Urine Bacteria None Seen Hyaline Casts 3-5 Ur Random Sodium 25.0 Digoxin Review of Systems Review of Systems Gen: no fever Resp: no sob, no cough CV: no chest, +GONSALES, +leg edema GI: No n/v, no abd pain Neuro: No confusion Yes all other systems are reviewed and are negative Physical Exam Vital Signs: Vital Signs: Last Vital Signs Temp 97.6 F 06/02/22 08:00 Pulse 105 H 06/02/22 11:00 Resp 18 06/02/22 11:00 BP 92/65 06/02/22 11:00 Pulse Ox 100 06/02/22 11:00 O2 Del Method 06/02/22 11:00 O2 Flow Rate 4 06/02/22 01:30 FiO2 50 06/02/22 11:00 Oxygen Flow Rate 4 06/01/22 00:42 BMI result Body Mass Index 24.6 Const: General: awake Orientation/consciousness: patient oriented x3 HEENT: Head: Yes normal to inspection Eyes: General: appearance normal, both eyes and all related structures Neck: Neck: Yes trachea midline Chest: Chest palpation & inspection: normal inspection of the chest Resp: Effort & Inspection: normal respiratory effort Auscultation: diminished lung sounds Cardio: Rate: regular rate and tachycardic Rhythm: regular rhythm Heart sounds: S1 normal heart sound present GI: Inspection: Yes normal to inspection Auscultation: normal bowel sounds Skin: General skin exam: no rashes or lesions noted Neuro: General: patient oriented x3 and no focal motor deficits Extrem: General: Yes edema Psych: Appearance: grossly normal Procedures Date of Service Date of Service: 06/02/22 Assessment and Plan Assessment and plan (1) Acute and chronic respiratory failure: Status: Acute (2) Pulmonary hypertension: Problem details: Pulmonary at [facility], severe Status: Acute (3) Obstructive cardiovascular shock: Status: Acute (4) Cardiac arrest: Status: Acute (5) Right heart failure: Status: Acute (6) SVT (supraventricular tachycardia): Status: Acute Plan The patient has severe PA pressures resulting in a decrease in her LV cardiac output and duction. Now with a recent cardiac arrest from the work load. The patient is requiring pressors to maintain an adequate blood pressure. A right heart catherization to titrate medicines may be helpful, but it may not change the over all outcome. REC: continue levophed gtt, consider changing to milrinone consider RHC to titrate medicines or serial bedside ECHOs start riociguat Critical condition, now DNR/DNI Time Spent With Patient Time: Total time managing care of this patient today ____ minutes.
[2022-06-02 11:26] LABS: Venous Blood Gas Refer to POC result
[2022-06-02 11:28] LABS: VBG Base Excess -6.8 mmol/L; VBG HCO3 18 mmol/L (22-26); VBG pCO2 35 mmHg; VBG pH 7.31 (7.32-7.43); VBG pO2 55 mmHg
[2022-06-02 11:50] LABS: Anion Gap 23 (12-20); Blood Urea Nitrogen 55 mg/dL (9-16); Calcium 9.6 mg/dL (8.4-10.2); Carbon Dioxide 20 mmol/L (22-29); Chloride 106 mmol/L (96-108); Creatinine Clr Calc Pharmacy 19.7; Estimated Glomerular Filt Rate 19; Glucose Random 111 mg/dL (60-115); Lactic Acid 2.8 mmol/L (0.5-2.0); Potassium 5.7 mmol/L (3.3-5.1); Sodium 143 mmol/L (135-145)
[2022-06-02] MEDS: Enoxaparin Sodium 40 MG/0.4 ML SYRINGE SUBCUT (12:09)
--- NOTE | 2022-06-02 12:42 | P.PNCC_ITS ---
Subjective Subjective Date of Service: 06/02/22 Interval History: 66-year-old female with longstanding pulmonary hypertension and cor pulmonale on 2 medications through a clinic in [place] namely a cyclic GM P stimulator and a prostacyclin receptor agonist and had an episode of exertional syncope and actual cardiac arrest precipitating of a 4 minute CPR with 2 doses of of IV epinephrine apparently was a a pulseless electrical activity restored normal sinus rhythm palpable pulse and blood pressure now supported with Levophed drip and noninvasive ventilator renal with positive-pressure patient is awake and she had a positive anion gap metabolic acidosis which was lactic acidosis peaking at 8.9 and was developing acute progressive renal failure but I do believe ATN because despite improvement in perfusion with improvement in her peripheral acrocyanosis and a diminished lactate down to 2.8 the but BUN and creatinine continue to climb so she must have had a an episode of more prolonged hypotension resulting in ATN and has been seen by Renal and remains on the above support and unfortunately we do not have Milrinone here but were going to restore both of her pulmonary vaso dilator medicines as discussed with her pulmonary physician Dr. Carmona The advanced and near terminal position that she is in with such severe right heart failure and by my bedside echo right heart is UGI with severe compression of the left ventricle I would be surprised if there was no LV filling Xenia during the attempt to be accompanied to the bathroom Critical Care Time (minutes): 45 Physical Exam Vital Signs: Vital Signs: Last Vital Signs Temp 97.6 F 06/02/22 08:00 Pulse 100 06/02/22 12:00 Resp 23 H 06/02/22 12:22 BP 85/58 L 06/02/22 12:00 Pulse Ox 100 06/02/22 12:00 O2 Del Method 06/02/22 12:00 O2 Flow Rate 4 06/02/22 01:30 FiO2 50 06/02/22 12:00 Oxygen Flow Rate 4 06/01/22 00:42 BMI result Body Mass Index 24.6 She was actually awaken oriented conversational nonfocal neurologically Bedside echo with dry into right ventricle and right atrium 4+ tricuspid regurgitation very small left ventricle due to a reversed Bernheim effect Lungs by chest CT shows diminished volume on the left where she had a lobectomy for non-small cell carcinoma a number of years ago and she otherwise has evidence of bilateral COPD and some degree of interstitial fibrosis no acute and infiltrate Abdomen benign no organomegaly Objective Data Labs 06/02/22 04:57 06/02/22 11:17 Labs: Laboratory Results - last 24 hr 06/01/22 06/02/22 06/02/22 22:32 00:41 00:58 WBC RBC Hgb Hct MCV MCH MCHC RDW Plt Count MPV Immature Gran % (Auto) Neut % (Auto) Lymph % (Auto) [place] % (Auto) Eos % (Auto) Baso % (Auto) Lymph # (Auto) [place] # (Auto) Eos # (Auto) Baso # (Auto) Abs Immat Gran (auto) Absolute Neuts (auto) Absolute Nucleated RBC Nucleated RBC % (auto) O2 Saturation 90.0 ABG pH at Pt Temp 7.25 L ABG pCO2 at Pt Temp 25 L ABG pO2 at Pt Temp 77 L ABG HCO3 11 L ABG Base Excess (Actual) -13.6 VBG pH VBG pCO2 VBG pO2 VBG HCO3 VBG O2 Saturation VBG Base Excess Sodium Potassium Chloride Carbon Dioxide Anion Gap BUN Creatinine Estim Creat Clear Calc Estimated GFR POC Glucose 104 82 Random Glucose Lactic Acid Lactic Acid F/U @ 2Hr Lactic Acid F/U @ 4Hr Calcium Phosphorus Magnesium Troponin I High Sens B-Natriuretic Peptide Albumin Urine Color Urine Appearance Urine pH Ur Specific [place] Urine Protein Urine Glucose (UA) Urine Ketones Urine Blood Urine Nitrite Ur Leukocyte Esterase Urine RBC Urine WBC Ur Squamous Epith Cells Urine Bacteria Hyaline Casts Ur Random Sodium 06/02/22 06/02/22 06/02/22 01:04 01:04 01:19 WBC RBC Hgb Hct MCV MCH MCHC RDW Plt Count MPV Immature Gran % (Auto) Neut % (Auto) Lymph % (Auto) [place] % (Auto) Eos % (Auto) Baso % (Auto) Lymph # (Auto) [place] # (Auto) Eos # (Auto) Baso # (Auto) Abs Immat Gran (auto) Absolute Neuts (auto) Absolute Nucleated RBC Nucleated RBC % (auto) O2 Saturation ABG pH at Pt Temp ABG pCO2 at Pt Temp ABG pO2 at Pt Temp ABG HCO3 ABG Base Excess (Actual) VBG pH VBG pCO2 VBG pO2 VBG HCO3 VBG O2 Saturation VBG Base Excess Sodium 143 Potassium 5.6 H D Chloride 107 Carbon Dioxide 13 L Anion Gap 29 H BUN 41 H Creatinine 1.97 H Estim Creat Clear Calc 27.7 Estimated GFR 25 POC Glucose Random Glucose 89 Lactic Acid Lactic Acid F/U @ 2Hr Lactic Acid F/U @ 4Hr Calcium 10.1 Phosphorus Magnesium Troponin I High Sens 12.0 D B-Natriuretic Peptide 1825 H Albumin Urine Color Urine Appearance Urine pH Ur Specific [place] Urine Protein Urine Glucose (UA) Urine Ketones Urine Blood Urine Nitrite Ur Leukocyte Esterase Urine RBC Urine WBC Ur Squamous Epith Cells Urine Bacteria Hyaline Casts Ur Random Sodium 06/02/22 06/02/22 06/02/22 02:03 04:55 04:57 WBC 11.5 H RBC 6.29 H Hgb 15.4 Hct 51.2 H MCV 81.4 MCH 24.5 L MCHC 30.1 L RDW 22.2 H Plt Count 310 MPV 8.8 L Immature Gran % (Auto) 0.8 H Neut % (Auto) 80.4 H Lymph % (Auto) 6.3 L [place] % (Auto) 11.8 H Eos % (Auto) 0.3 Baso % (Auto) 0.4 Lymph # (Auto) 0.7 L [place] # (Auto) 1.4 H Eos # (Auto) 0.0 Baso # (Auto) 0.1 Abs Immat Gran (auto) 0.09 H Absolute Neuts (auto) 9.3 H Absolute Nucleated RBC 0.020 H Nucleated RBC % (auto) 0.2 O2 Saturation ABG pH at Pt Temp ABG pCO2 at Pt Temp ABG pO2 at Pt Temp ABG HCO3 ABG Base Excess (Actual) VBG pH 7.15 L* VBG pCO2 42 VBG pO2 53 VBG HCO3 15 L VBG O2 Saturation 59.0 VBG Base Excess -13.2 Sodium Potassium Chloride Carbon Dioxide Anion Gap BUN Creatinine Estim Creat Clear Calc Estimated GFR POC Glucose Random Glucose Lactic Acid 8.5 H* Lactic Acid F/U @ 2Hr Lactic Acid F/U @ 4Hr Calcium Phosphorus Magnesium Troponin I High Sens B-Natriuretic Peptide Albumin Urine Color Urine Appearance Urine pH Ur Specific [place] Urine Protein Urine Glucose (UA) Urine Ketones Urine Blood Urine Nitrite Ur Leukocyte Esterase Urine RBC Urine WBC Ur Squamous Epith Cells Urine Bacteria Hyaline Casts Ur Random Sodium 06/02/22 06/02/22 06/02/22 04:57 04:57 07:36 WBC RBC Hgb Hct MCV MCH MCHC RDW Plt Count MPV Immature Gran % (Auto) Neut % (Auto) Lymph % (Auto) [place] % (Auto) Eos % (Auto) Baso % (Auto) Lymph # (Auto) [place] # (Auto) Eos # (Auto) Baso # (Auto) Abs Immat Gran (auto) Absolute Neuts (auto) Absolute Nucleated RBC Nucleated RBC % (auto) O2 Saturation ABG pH at Pt Temp ABG pCO2 at Pt Temp ABG pO2 at Pt Temp ABG HCO3 ABG Base Excess (Actual) VBG pH VBG pCO2 VBG pO2 VBG HCO3 VBG O2 Saturation VBG Base Excess Sodium 143 Potassium 6.0 H* Chloride 106 Carbon Dioxide 13 L Anion Gap 30 H BUN 44 H Creatinine 2.40 H Estim Creat Clear Calc 22.8 Estimated GFR 20 POC Glucose Random Glucose 75 Lactic Acid Lactic Acid F/U @ 2Hr 8.9 H* Lactic Acid F/U @ 4Hr 6.5 H* Calcium 10.3 H Phosphorus 9.5 H Magnesium 2.6 Troponin I High Sens B-Natriuretic Peptide Albumin 4.0 Urine Color Urine Appearance Urine pH Ur Specific [place] Urine Protein Urine Glucose (UA) Urine Ketones Urine Blood Urine Nitrite Ur Leukocyte Esterase Urine RBC Urine WBC Ur Squamous Epith Cells Urine Bacteria Hyaline Casts Ur Random Sodium 06/02/22 06/02/22 06/02/22 07:37 09:54 11:17 WBC RBC Hgb Hct MCV MCH MCHC RDW Plt Count MPV Immature Gran % (Auto) Neut % (Auto) Lymph % (Auto) [place] % (Auto) Eos % (Auto) Baso % (Auto) Lymph # (Auto) [place] # (Auto) Eos # (Auto) Baso # (Auto) Abs Immat Gran (auto) Absolute Neuts (auto) Absolute Nucleated RBC Nucleated RBC % (auto) O2 Saturation ABG pH at Pt Temp ABG pCO2 at Pt Temp ABG pO2 at Pt Temp ABG HCO3 ABG Base Excess (Actual) VBG pH VBG pCO2 VBG pO2 VBG HCO3 VBG O2 Saturation VBG Base Excess Sodium 143 Potassium 5.7 H Chloride 106 Carbon Dioxide 20 L Anion Gap 23 H BUN 55 H Creatinine 2.55 H Estim Creat Clear Calc 19.7 Estimated GFR 19 POC Glucose Random Glucose 111 Lactic Acid Lactic Acid F/U @ 2Hr Lactic Acid F/U @ 4Hr Calcium 9.6 D Phosphorus Magnesium Troponin I High Sens B-Natriuretic Peptide Albumin Urine Color Dark Yellow Urine Appearance Cloudy Urine pH 5.5 Ur Specific [place] 1.015 Urine Protein 300 (3+) H Urine Glucose (UA) Negative Urine Ketones Negative Urine Blood Moderate (2+) H Urine Nitrite Negative Ur Leukocyte Esterase Negative Urine RBC >20 H Urine WBC 0-5 Ur Squamous Epith Cells 0-2 Urine Bacteria None Seen Hyaline Casts 3-5 Ur Random Sodium 25.0 06/02/22 06/02/22 11:17 11:22 WBC RBC Hgb Hct MCV MCH MCHC RDW Plt Count MPV Immature Gran % (Auto) Neut % (Auto) Lymph % (Auto) [place] % (Auto) Eos % (Auto) Baso % (Auto) Lymph # (Auto) [place] # (Auto) Eos # (Auto) Baso # (Auto) Abs Immat Gran (auto) Absolute Neuts (auto) Absolute Nucleated RBC Nucleated RBC % (auto) O2 Saturation ABG pH at Pt Temp ABG pCO2 at Pt Temp ABG pO2 at Pt Temp ABG HCO3 ABG Base Excess (Actual) VBG pH 7.31 L VBG pCO2 35 VBG pO2 55 VBG HCO3 18 L VBG O2 Saturation 76.0 VBG Base Excess -6.8 Sodium Potassium Chloride Carbon Dioxide Anion Gap BUN Creatinine Estim Creat Clear Calc Estimated GFR POC Glucose Random Glucose Lactic Acid 2.8 H* Lactic Acid F/U @ 2Hr Lactic Acid F/U @ 4Hr Calcium Phosphorus Magnesium Troponin I High Sens B-Natriuretic Peptide Albumin Urine Color Urine Appearance Urine pH Ur Specific [place] Urine Protein Urine Glucose (UA) Urine Ketones Urine Blood Urine Nitrite Ur Leukocyte Esterase Urine RBC Urine WBC Ur Squamous Epith Cells Urine Bacteria Hyaline Casts Ur Random Sodium Progress Note: A&P Assessment and plan (1) Cardiac arrest: Status: Acute (2) Obstructive cardiovascular shock: Status: Acute (3) Acute and chronic respiratory failure: Status: Acute (4) CKD (chronic kidney disease) stage 3, GFR 30-59 ml/min: Status: Acute (5) Chronic respiratory failure with hypoxia: Status: Acute (6) Hx of cancer of lung: Status: Acute (7) Non-small cell lung cancer: Status: Acute (8) KIRAN (acute kidney injury): Status: Acute (9) Hyperkalemia: Status: Acute (10) Metabolic acidosis: Status: Acute (11) COPD (chronic obstructive pulmonary disease): Status: Acute (12) BERTIN (obstructive sleep apnea): Status: Acute (13) Pulmonary hypertension: Status: Acute (14) Right heart failure: Status: Acute (15) SVT (supraventricular tachycardia): Status: Acute (16) Raynaud's disease without gangrene: Status: Acute (17) Pulmonary hypertension with acute cor pulmonale: Status: Acute Plan At this point she will be supported on her pulmonary vasodilators along with the Levophed and the noninvasive ventilation and after long discussion with the family she was made a do not resuscitate and do not intubate and this was her wish as well and the the grim aspect of her prognosis was also discussed in detail with the family but not directly by me with the patient Quality Stroke Does the patient have a stroke diagnosis?: No VTE Prior VTE?: No VTE Risk Level:: Medical - moderate - high VTE Device Contraindication: N/A - Device Ordered VTE Drug Contraindication: N/A - Med Ordered
[2022-06-02 13:22] LABS: Reflex Lactate? Lactic Acid Added
[2022-06-02 14:16] LABS: ~Lactic Acid-LAB USE ONLY 2.9 mmol/L (0.5-2.0)
[2022-06-02 15:48] LABS: Reflex Lactate? 2 Y
[2022-06-02] MEDS: ondansetron HCL 4 MG/2 ML VIAL IVPUSH (16:14)
[2022-06-02 16:35] LABS: ~Lactic Acid-LAB USE ONLY 4.3 mmol/L (0.5-2.0)
[2022-06-02] MEDS: fentaNYL citrate/NS 1,000 MCG/100 ML PLAST..BAG 5 MCG IVCONT (17:11)
[2022-06-02] MEDS: fentaNYL citrate/PF 100 MCG/2 ML VIAL 50 MCG IVPUSH (17:11)
--- NOTE | 2022-06-02 19:16 | P.DS_ITS ---
DS: Providers Provider Date of Service: 06/02/22 Date of admission: 06/01/22 10:46 Date of discharge: 06/02/22 Primary care physician: Laury Soto MD Admitting clinician: Stephen Moya Consults: 06/01/22 10:23 Consult to Cardiology Routine Consulting Provider: Esequiel Palacio Reason for consultation: Chf Has provider been notified: Yes 06/01/22 10:25 Consult to Pulmonology Routine Consulting Provider: Neftaly Carmona Reason for consultation: Copd Has provider been notified: Yes 06/02/22 01:45 Consult to Critical Care Stat Consulting Provider: Edel Benitez Reason for consultation: Hypotensive and acidotic 06/02/22 07:11 Consult to Nephrology Routine Consulting Provider: Hang Santoro Reason for consultation: progressive renal failure Has provider been notified: Yes Attending physician on discharge: Edel Benitez Discharging clinician: Day Clifton DS: Diagnosis Discharge Diagnosis (1) Cardiac arrest: Status: Acute (2) Obstructive cardiovascular shock: Status: Acute (3) Acute and chronic respiratory failure: Status: Acute (4) CKD (chronic kidney disease) stage 3, GFR 30-59 ml/min: Status: Acute (5) Chronic respiratory failure with hypoxia: Status: Acute (6) Hx of cancer of lung: Status: Acute (7) Non-small cell lung cancer: Status: Acute (8) KIRAN (acute kidney injury): Status: Acute (9) Hyperkalemia: Status: Acute (10) Metabolic acidosis: Status: Acute (11) COPD (chronic obstructive pulmonary disease): Status: Acute (12) BERTIN (obstructive sleep apnea): Status: Acute (13) Pulmonary hypertension: Status: Acute (14) Right heart failure: Status: Acute (15) SVT (supraventricular tachycardia): Status: Acute (16) Raynaud's disease without gangrene: Status: Acute (17) Pulmonary hypertension with acute cor pulmonale: Status: Acute DS: Summary Hospital Course Hospital Course: The patient is a 66 year old female with h/o non-small cell lung cancer, COPD, pulmonary hypertension, right-sided heart failure and supraventricular tachycardia admitted with exacerbation of right heart failure likely precipitated by uncontrolled SVT and/or Copd exacerbation.? She presented with increasing shortness of breath with an increase in her home O2 requirements and significant increase in leg edema over the last? 3 days. She was noted to be in slow SVT by cardiology and was managed with carotid massage, adenosine and broke transiently.? Overnight, a rapid response was called when she became unresponsive after a trip to the bathroom. ? She eventually regained consciousness. She denied chest discomfort but did complain of dyspnea.? She was hypotensive, bradycardic, extremities were dusky and cool. She was placed on BiPAP for support and transferred to the ICU. Shortly after arriving to the ICU, the patient's respirations became agonal, she was bradycardic, blood pressure was in the 40 systolic range and she became pulseless.? Compressions were started.? She received 2 rounds of epi. ROSC was achieved after 4 minutes of ACLS. The patient was awake and was put back on BiPAP for respiratory support.? Levophed was continued for pressure support.? She developed acute progressive renal failure despite improvement in perfusion. Bedside echo by Dr. Benitez showed 4+ tricuspid regurgitation? 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 The advanced and near terminal position that she was in with such severe right heart failure was discussed with the patient and family. She was made a do not resuscitate and do not intubate as per their wishes. She was supported on her pulmonary vasodilators along with the Levophed and the noninvasive ventilation.?? The patient at 17:22.? Status at Discharge Overall status at discharge: patient is not back to baseline Time Spent with Patient Time attestation: Total time managing care of this patient today ____ minutes. Discharge coordination time: Less than 30 minutes Quality: Safe Use of Opioids Does Pt have an Active Cancer Diagnosis on the Problem List?: No Quality: Stroke Does the patient have a stroke diagnosis?: No Physical Exam Vital Signs: Vital Signs: Last Vital Signs Temp 98.0 F 06/02/22 16:00 Pulse 50 06/02/22 17:12 Resp 32 H 06/02/22 17:00 BP 65/35 L 06/02/22 17:12 Pulse Ox 82 L 06/02/22 17:00 O2 Del Method 06/02/22 17:00 O2 Flow Rate 4 06/02/22 01:30 FiO2 50 06/02/22 17:00 Oxygen Flow Rate 4 06/01/22 00:42 BMI result Body Mass Index 24.6 DS: Data Data Completed and Pending Labs on day of discharge: Laboratory Results - last 24 hr 06/01/22 06/02/22 06/02/22 22:32 00:41 00:58 WBC RBC Hgb Hct MCV MCH MCHC RDW Plt Count MPV Immature Gran % (Auto) Neut % (Auto) Lymph % (Auto) [place] % (Auto) Eos % (Auto) Baso % (Auto) Lymph # (Auto) [place] # (Auto) Eos # (Auto) Baso # (Auto) Abs Immat Gran (auto) Absolute Neuts (auto) Absolute Nucleated RBC Nucleated RBC % (auto) O2 Saturation 90.0 ABG pH at Pt Temp 7.25 L ABG pCO2 at Pt Temp 25 L ABG pO2 at Pt Temp 77 L ABG HCO3 11 L ABG Base Excess (Actual) -13.6 VBG pH VBG pCO2 VBG pO2 VBG HCO3 VBG O2 Saturation VBG Base Excess Sodium Potassium Chloride Carbon Dioxide Anion Gap BUN Creatinine Estim Creat Clear Calc Estimated GFR POC Glucose 104 82 Random Glucose Lactic Acid Lactic Acid F/U @ 2Hr Lactic Acid F/U @ 4Hr Calcium Phosphorus Magnesium Troponin I High Sens B-Natriuretic Peptide Albumin Urine Color Urine Appearance Urine pH Ur Specific [place] Urine Protein Urine Glucose (UA) Urine Ketones Urine Blood Urine Nitrite Ur Leukocyte Esterase Urine RBC Urine WBC Ur Squamous Epith Cells Urine Bacteria Hyaline Casts Ur Random Sodium 06/02/22 06/02/22 06/02/22 01:04 01:04 01:19 WBC RBC Hgb Hct MCV MCH MCHC RDW Plt Count MPV Immature Gran % (Auto) Neut % (Auto) Lymph % (Auto) [place] % (Auto) Eos % (Auto) Baso % (Auto) Lymph # (Auto) [place] # (Auto) Eos # (Auto) Baso # (Auto) Abs Immat Gran (auto) Absolute Neuts (auto) Absolute Nucleated RBC Nucleated RBC % (auto) O2 Saturation ABG pH at Pt Temp ABG pCO2 at Pt Temp ABG pO2 at Pt Temp ABG HCO3 ABG Base Excess (Actual) VBG pH VBG pCO2 VBG pO2 VBG HCO3 VBG O2 Saturation VBG Base Excess Sodium 143 Potassium 5.6 H D Chloride 107 Carbon Dioxide 13 L Anion Gap 29 H BUN 41 H Creatinine 1.97 H Estim Creat Clear Calc 27.7 Estimated GFR 25 POC Glucose Random Glucose 89 Lactic Acid Lactic Acid F/U @ 2Hr Lactic Acid F/U @ 4Hr Calcium 10.1 Phosphorus Magnesium Troponin I High Sens 12.0 D B-Natriuretic Peptide 1825 H Albumin Urine Color Urine Appearance Urine pH Ur Specific [place] Urine Protein Urine Glucose (UA) Urine Ketones Urine Blood Urine Nitrite Ur Leukocyte Esterase Urine RBC Urine WBC Ur Squamous Epith Cells Urine Bacteria Hyaline Casts Ur Random Sodium 06/02/22 06/02/22 06/02/22 02:03 04:55 04:57 WBC 11.5 H RBC 6.29 H Hgb 15.4 Hct 51.2 H MCV 81.4 MCH 24.5 L MCHC 30.1 L RDW 22.2 H Plt Count 310 MPV 8.8 L Immature Gran % (Auto) 0.8 H Neut % (Auto) 80.4 H Lymph % (Auto) 6.3 L [place] % (Auto) 11.8 H Eos % (Auto) 0.3 Baso % (Auto) 0.4 Lymph # (Auto) 0.7 L [place] # (Auto) 1.4 H Eos # (Auto) 0.0 Baso # (Auto) 0.1 Abs Immat Gran (auto) 0.09 H Absolute Neuts (auto) 9.3 H Absolute Nucleated RBC 0.020 H Nucleated RBC % (auto) 0.2 O2 Saturation ABG pH at Pt Temp ABG pCO2 at Pt Temp ABG pO2 at Pt Temp ABG HCO3 ABG Base Excess (Actual) VBG pH 7.15 L* VBG pCO2 42 VBG pO2 53 VBG HCO3 15 L VBG O2 Saturation 59.0 VBG Base Excess -13.2 Sodium Potassium Chloride Carbon Dioxide Anion Gap BUN Creatinine Estim Creat Clear Calc Estimated GFR POC Glucose Random Glucose Lactic Acid 8.5 H* Lactic Acid F/U @ 2Hr Lactic Acid F/U @ 4Hr Calcium Phosphorus Magnesium Troponin I High Sens B-Natriuretic Peptide Albumin Urine Color Urine Appearance Urine pH Ur Specific [place] Urine Protein Urine Glucose (UA) Urine Ketones Urine Blood Urine Nitrite Ur Leukocyte Esterase Urine RBC Urine WBC Ur Squamous Epith Cells Urine Bacteria Hyaline Casts Ur Random Sodium 06/02/22 06/02/22 06/02/22 04:57 04:57 07:36 WBC RBC Hgb Hct MCV MCH MCHC RDW Plt Count MPV Immature Gran % (Auto) Neut % (Auto) Lymph % (Auto) [place] % (Auto) Eos % (Auto) Baso % (Auto) Lymph # (Auto) [place] # (Auto) Eos # (Auto) Baso # (Auto) Abs Immat Gran (auto) Absolute Neuts (auto) Absolute Nucleated RBC Nucleated RBC % (auto) O2 Saturation ABG pH at Pt Temp ABG pCO2 at Pt Temp ABG pO2 at Pt Temp ABG HCO3 ABG Base Excess (Actual) VBG pH VBG pCO2 VBG pO2 VBG HCO3 VBG O2 Saturation VBG Base Excess Sodium 143 Potassium 6.0 H* Chloride 106 Carbon Dioxide 13 L Anion Gap 30 H BUN 44 H Creatinine 2.40 H Estim Creat Clear Calc 22.8 Estimated GFR 20 POC Glucose Random Glucose 75 Lactic Acid Lactic Acid F/U @ 2Hr 8.9 H* Lactic Acid F/U @ 4Hr 6.5 H* Calcium 10.3 H Phosphorus 9.5 H Magnesium 2.6 Troponin I High Sens B-Natriuretic Peptide Albumin 4.0 Urine Color Urine Appearance Urine pH Ur Specific [place] Urine Protein Urine Glucose (UA) Urine Ketones Urine Blood Urine Nitrite Ur Leukocyte Esterase Urine RBC Urine WBC Ur Squamous Epith Cells Urine Bacteria Hyaline Casts Ur Random Sodium 06/02/22 06/02/22 06/02/22 07:37 09:54 11:17 WBC RBC Hgb Hct MCV MCH MCHC RDW Plt Count MPV Immature Gran % (Auto) Neut % (Auto) Lymph % (Auto) [place] % (Auto) Eos % (Auto) Baso % (Auto) Lymph # (Auto) [place] # (Auto) Eos # (Auto) Baso # (Auto) Abs Immat Gran (auto) Absolute Neuts (auto) Absolute Nucleated RBC Nucleated RBC % (auto) O2 Saturation ABG pH at Pt Temp ABG pCO2 at Pt Temp ABG pO2 at Pt Temp ABG HCO3 ABG Base Excess (Actual) VBG pH VBG pCO2 VBG pO2 VBG HCO3 VBG O2 Saturation VBG Base Excess Sodium 143 Potassium 5.7 H Chloride 106 Carbon Dioxide 20 L Anion Gap 23 H BUN 55 H Creatinine 2.55 H Estim Creat Clear Calc 19.7 Estimated GFR 19 POC Glucose Random Glucose 111 Lactic Acid Lactic Acid F/U @ 2Hr Lactic Acid F/U @ 4Hr Calcium 9.6 D Phosphorus Magnesium Troponin I High Sens B-Natriuretic Peptide Albumin Urine Color Dark Yellow Urine Appearance Cloudy Urine pH 5.5 Ur Specific [place] 1.015 Urine Protein 300 (3+) H Urine Glucose (UA) Negative Urine Ketones Negative Urine Blood Moderate (2+) H Urine Nitrite Negative Ur Leukocyte Esterase Negative Urine RBC >20 H Urine WBC 0-5 Ur Squamous Epith Cells 0-2 Urine Bacteria None Seen Hyaline Casts 3-5 Ur Random Sodium 25.0 06/02/22 06/02/22 06/02/22 11:17 11:22 13:42 WBC RBC Hgb Hct MCV MCH MCHC RDW Plt Count MPV Immature Gran % (Auto) Neut % (Auto) Lymph % (Auto) [place] % (Auto) Eos % (Auto) Baso % (Auto) Lymph # (Auto) [place] # (Auto) Eos # (Auto) Baso # (Auto) Abs Immat Gran (auto) Absolute Neuts (auto) Absolute Nucleated RBC Nucleated RBC % (auto) O2 Saturation ABG pH at Pt Temp ABG pCO2 at Pt Temp ABG pO2 at Pt Temp ABG HCO3 ABG Base Excess (Actual) VBG pH 7.31 L VBG pCO2 35 VBG pO2 55 VBG HCO3 18 L VBG O2 Saturation 76.0 VBG Base Excess -6.8 Sodium Potassium Chloride Carbon Dioxide Anion Gap BUN Creatinine Estim Creat Clear Calc Estimated GFR POC Glucose Random Glucose Lactic Acid 2.8 H* Lactic Acid F/U @ 2Hr 2.9 H* Lactic Acid F/U @ 4Hr Calcium Phosphorus Magnesium Troponin I High Sens B-Natriuretic Peptide Albumin Urine Color Urine Appearance Urine pH Ur Specific [place] Urine Protein Urine Glucose (UA) Urine Ketones Urine Blood Urine Nitrite Ur Leukocyte Esterase Urine RBC Urine WBC Ur Squamous Epith Cells Urine Bacteria Hyaline Casts Ur Random Sodium 06/02/22 16:15 WBC RBC Hgb Hct MCV MCH MCHC RDW Plt Count MPV Immature Gran % (Auto) Neut % (Auto) Lymph % (Auto) [place] % (Auto) Eos % (Auto) Baso % (Auto) Lymph # (Auto) [place] # (Auto) Eos # (Auto) Baso # (Auto) Abs Immat Gran (auto) Absolute Neuts (auto) Absolute Nucleated RBC Nucleated RBC % (auto) O2 Saturation ABG pH at Pt Temp ABG pCO2 at Pt Temp ABG pO2 at Pt Temp ABG HCO3 ABG Base Excess (Actual) VBG pH VBG pCO2 VBG pO2 VBG HCO3 VBG O2 Saturation VBG Base Excess Sodium Potassium Chloride Carbon Dioxide Anion Gap BUN Creatinine Estim Creat Clear Calc Estimated GFR POC Glucose Random Glucose Lactic Acid Lactic Acid F/U @ 2Hr Lactic Acid F/U @ 4Hr 4.3 H* Calcium Phosphorus Magnesium Troponin I High Sens B-Natriuretic Peptide Albumin Urine Color Urine Appearance Urine pH Ur Specific [place] Urine Protein Urine Glucose (UA) Urine Ketones Urine Blood Urine Nitrite Ur Leukocyte Esterase Urine RBC Urine WBC Ur Squamous Epith Cells Urine Bacteria Hyaline Casts Ur Random Sodium Discharge Plan Discharge Date/Time: 06/02/22 17:22 Anticipated Discharge Date/Time: 06/02/22 19:00 Patient Disposition: Discharge Diagnosis: Cardiogenic shock secondary to right heart failure brought on by pulmonary hypertension Referrals: Laury Soto MD [Primary Care Provider] - 1 Week Discharge Medications: No Action simvastatin 20 mg tablet 20 mg PO BEDTIME Qty: 90 3RF Rx Instructions: Over due for follow up. Please schedule an appt Dr. Adames in order to continue to receiving future refills; [phone]. Daliresp 250 mcg tablet 250 mcg PO DAILY Qty: 28 0RF lorazepam 0.5 mg Tablet 0.5 mg PO DAILY PRN (Reason: Anxiety) Qty: 30 0RF azithromycin 250 mg tablet 250 mg PO MOWEFR digoxin 125 mcg (0.125 mg) tablet 125 mcg PO BEDTIME Breztri Aerosphere 160-9-4.8 mcg/actuation HFA aerosol inhaler 2 puff INHALATION DAILY albuterol sulfate 90 mcg/actuation HFA aerosol inhaler 90 mcg inhalation DAILY furosemide 20 mg tablet 60 mg PO DAILY riociguat 2.5 mg tablet 2.5 mg PO TID potassium chloride 20 mEq tablet,ER particles/crystals 20 meq PO TID selexipag 600 mcg tablet 600 mcg PO BID (DME) nebulizers Misc See Rx Instructions .ROUTE Rx Instructions: As directed levalbuterol HCl 1.25 mg/3 mL solution for nebulization 1.25 mg inhalation Q6H PRN (Reason: wheezing) Qty: 90 11RF (DME) Oxygen Home Use Kit See Rx Instructions .ROUTE Rx Instructions: As directed Discharge Orders: Discharge Order (Routine); Ordered 06/02/22 Ordered By: Edel Benitez Discharge Date/Time: 06/02/22 20:44
== END 2022-06-02 20:44 | disposition expired | DRG 291 ==
LOC: HO.ED 07:53 → HO.EDOVER 11:04 → HO.IMC 13:46 → HO.ICU 06-02 02:28
PROVIDERS: Internal Medicine Nephrology; Nurse Practitioner Family; Student in an Organized Health Care Education/Training Program; Admitting Provider Internal Medicine; Emergency Provider Internal Medicine; PCP Internal Medicine; Visit Provider Internal Medicine Cardiovascular Disease
DX: I50.811 Acute right heart failure (principal); J96.21 Acute and chronic respiratory failure with hypoxia; N17.0 Acute kidney failure with tubular necrosis; E87.20 Acidosis, unspecified; I47.1 Supraventricular tachycardia; I27.29 Other secondary pulmonary hypertension; I27.81 Cor pulmonale (chronic); I73.00 Raynaud's syndrome without gangrene; N18.30 Chronic kidney disease, stage 3 unspecified; Z66 Do not resuscitate; I46.9 Cardiac arrest, cause unspecified; E78.5 Hyperlipidemia, unspecified; R57.0 Cardiogenic shock; I07.1 Rheumatic tricuspid insufficiency; E87.5 Hyperkalemia; D45 Polycythemia vera; J44.9 Chronic obstructive pulmonary disease, unspecified; Z20.822 Contact with and (suspected) exposure to COVID-19; Z99.81 Dependence on supplemental oxygen; Z85.118 Personal history of other malignant neoplasm of bronchus and lung; Z92.21 Personal history of antineoplastic chemotherapy; Z90.2 Acquired absence of lung [part of]; Z87.891 Personal history of nicotine dependence; Z88.1 Allergy status to other antibiotic agents; Z88.8 Allergy status to other drugs, medicaments and biological substances; Z79.899 Other long term (current) drug therapy
CPT/HCPCS: 36415; 36600; 71045; 71250; 80048; 80053; 80162; 81001; 82040; 82803; 82947; 83605; 83735; 83880; 84100; 84300; 84484; 85025; 85027; 87502; 87635; 92950; 93005; 94640; 94660; 99285; C1758; J0153; J1200; J1650; J1940; J2405; J2930; J3010